=== PATIENT | male | born 1940 | race African-American/Black ===

== ENCOUNTER 2016-11-22 15:26 | Inpatient (IN) | payer MEDICARE, OTHER ==
[~2016-11-22] VITALS: Ht 177.8 cm; Wt 92.7 kg
[2016-11-22] VITALS (12 sets, daily range): BP systolic 133–224; BP diastolic 72–105
[2016-11-22] MEDS ORDERED: cloNIDine HCL 0.2 MG TABLET PO PRN (18:00)
[2016-11-22] MEDS ORDERED: cloNIDine HCL 0.1 MG TABLET PO ONE (18:00)
[2016-11-22] MEDS ORDERED: CHOL10003 PO (18:43)
[2016-11-22] MEDS ORDERED: ATORVASTATIN CA80 MG PO (18:43)
[2016-11-22 18:51] LABS: BASO % 0 % (0-3); EOS % 1 % (0-3); HEMATOCRIT 28.3 % (39.0-53.0); HEMOGLOBIN 9.2 g/dL (13.0-17.5); LYMPH # 1.1 x10^3/uL (1.0-4.8); LYMPH % 19 % (24-48); MEAN CORPUSCULAR HEMOGLOBIN 27 pg (25-35); MEAN CORPUSCULAR HGB CONC 32 g/dL (31-37); MEAN CORPUSCULAR VOLUME 82 fL (79-100); MONO % 11 % (0-9); NEUT % 69 % (31-73); PLATELET COUNT 95 x10^3/uL (140-400); RED BLOOD COUNT 3.43 x10^6/uL (4.30-5.70); RED CELL DISTRIBUTION WIDTH 16.9 % (11.5-14.5); WHITE BLOOD COUNT 5.8 x10^3/uL (4.0-11.0)
[2016-11-22 19:06] LABS: CALCIUM 8.6 mg/dL (8.5-10.1); CREATININE 9.3 mg/dL (0.7-1.3); GFR 6.7
[2016-11-22 19:11] LABS: ALBUMIN 2.6 g/dL (3.4-5.0); ALBUMIN/GLOBULIN RATIO 0.6 (1.0-1.7); TOTAL BILIRUBIN 0.3 mg/dL (0.2-1.0); TOTAL PROTEIN 6.9 g/dL (6.4-8.2)
[2016-11-22] MEDS ORDERED: AMLO10TA2 PO (19:29)
[2016-11-22] MEDS ORDERED: CETI10TA16 PO (19:29)
[2016-11-22] MEDS ORDERED: TERA2CAP3 PO (19:29)
[2016-11-22] MEDS ORDERED: CYAN10002 IM (19:29)
[2016-11-22] MEDS ORDERED: POLY17PO29 PO (19:29)
[2016-11-22] MEDS ORDERED: ATEN100T PO (19:29)
[2016-11-22] MEDS ORDERED: FINA5TAB4 PO (19:29)
[2016-11-22] MEDS ORDERED: LATA2.5D3 OP (19:29)
[2016-11-22] MEDS ORDERED: LEVO150T5 PO (19:29)
--- NOTE | 2016-11-22 23:36 | HP ---
ADMIT DATE: 11/22/2016 CHIEF COMPLAINT: "I need dialysis." HISTORY OF PRESENT ILLNESS: The patient is a pleasant elderly male who has had chronic renal insufficiency for some time. He has stage 4 kidney disease. He was told he needed dialysis, but he did not want it. He presents to the [place] [facility] earlier today. They noted that his creatinine had bumped up from 3.5 to 10. I accepted the patient as a transfer. We are going to start dialysis if Nephrology agrees. PAST MEDICAL HISTORY: Noncompliance, end-stage renal disease, hypertension, hyperlipidemia, hypothyroidism, BPH, anemia, and glaucoma. ALLERGIES: TAMSULOSIN. FAMILY HISTORY: Diabetes. SOCIAL HISTORY: He does not drink, smoke, or take drugs. He is retired. MEDICATIONS: Reviewed. REVIEW OF SYSTEMS: REVIEW OF SYSTEMS: GENERAL: No history of weight change, weakness, or fevers. SKIN: No bruising, hair changes, or rashes. EYES: No blurred, double, or loss of vision. NOSE AND THROAT: No history of nosebleeds, hoarseness, or sore throat. HEART: No history of palpitations, chest pain, or shortness of breath on exertion. LUNGS: Denies cough, hemoptysis, wheezing, or shortness of breath. GASTROINTESTINAL: Denies changes in appetite, nausea, vomiting, diarrhea, or constipation. GENITOURINARY: No history of frequency, urgency, hesitancy, or nocturia. NEUROLOGIC: Denies history of numbness, tingling, tremor, or weakness. PSYCHIATRIC: No history of panic, anxiety, or depression. ENDOCRINE: No history of heat or cold intolerance, polyuria, or polydipsia. EXTREMITIES: Denies muscle weakness, joint pain, pain on walking, or stiffness. PHYSICAL EXAMINATION: VITAL SIGNS: Temperature afebrile, pulse 68, respirations 18, blood pressure 224/105. . GENERAL: He is alert, cooperative. HEART: Normal S1, S2. LUNGS: Clear. ABDOMEN: Soft. EXTREMITIES: No edema. SKIN: No rashes. PSYCHIATRIC: He is stable. VASCULAR: Good capillary refill. ENDOCRINE: No thyromegaly. LYMPHATICS: No cervical nodes. HEMATOPOIETIC: No bruising. ASSESSMENT AND PLAN: Accelerated hypertension and end-stage renal disease. The patient probably needs dialysis. The patient has been admitted. We will consult Dr. Lai. I ordered some p.r.n. clonidine. Renal diet. Continue home medicines. PROGNOSIS: Guarded. THERESA SHAH DO DR: ALMA DELIA/zabrina JOB#: [id number] / [id number]
[2016-11-22 23:44] LABS: BILIRUBIN,URINE NEGATIVE (NEG); GLUCOSE,URINE NEGATIVE (NEG); NITRITE,URINE NEGATIVE (NEG); PROTEIN,URINE >=300 mg/dL (NEG-TRACE); UROBILINOGEN,URINE 0.2 mg/dL (0.2 mg/dL)
[2016-11-22 23:48] LABS: BACTERIA,URINE 0 /HPF (0-FEW); SQUAMOUS EPITHELIAL CELL,UR FEW /LPF; WBC,URINE OCC /HPF (0-4)
[2016-11-23] VITALS (27 sets, daily range): BP systolic 136–176; BP diastolic 64–87
[2016-11-23] MEDS ORDERED: ZOLPIDEM 5 MG TABLET. PO PRN (12:30)
--- NOTE | 2016-11-23 13:41 | PDOC2 ---
CONSULT Date of Consult Date of Consult DATE: 11/23/16 TIME: 13:40 Reason for Consult Reason for Consult: DANIEL/ CKD IV Referring Physician Referring Physician: Dr Suarez Identification/Chief Complaint Chief Complaint none from pt Problems: Source Source: Chart review, Patient History of Present Illness Reason for Visit: as dictated Current Medications Current Medications Current Medications Clonidine HCl (Catapres) 0.3 mg 1X ONCE PO Last administered on 11/22/16 18: 29; Start 11/22/16 at 18:00; Stop 11/22/16 at 18:01; Status DC Clonidine HCl (Catapres) 0.2 mg PRN Q2HR PRN PO HYPERTENSION, SEE COMMENTS; Start 11/22/16 at 18:00 Nicardipine HCl 50 mg/Sodium Chloride 270 ml @ 0 mls/hr CONT PRN IV SEE I/O RECORD Last administered on 11/22/16 21:49; Start 11/22/16 at 21:15 Zolpidem Tartrate (Ambien) 5 mg PRN QHS PRN PO INSOMNIA; Start 11/23/16 at 12: 30 Active Scripts Active Reported Miralax (Polyethylene Glycol 3350) 17 Gm Powd.pack 1 Packet PO DAILY Atenolol 100 Mg Tablet 1 Tab PO DAILY Terazosin Hcl 2 Mg Capsule 2 Cap PO BID Levothyroxine Sodium 150 Mcg Tablet 1 Tab PO DAILY Latanoprost 2.5 Ml Drops 1 Drop OP HS Finasteride 5 Mg Tablet 5 Mg PO HS Cetirizine Hcl 10 Mg Tablet 10 Mg PO Atorvastatin Calcium 80 Mg Tablet 80 Mg PO HS Vitamin D3 (Cholecalciferol (Vitamin D3)) 1,000 Unit Tablet 1,000 Unit PO Amlodipine Besylate 10 Mg Tablet 10 Mg PO QHS Allergies Allergies: Coded Allergies: tamsulosin (Verified Allergy, Intermediate, 11/23/16) ROS Review of System GEN: no Fevers no Chills EYES: no Visual Complaints ENT: no EN Drainage no Hearing deficiets CVS: no Orthopnea no CP RESP: occ SOB no [place] GI: no Nausea no Vomiting : no Dysuria rare Urgency HEME: no easy bruising no Palp Ly Nodes NEURO no Focal Weakness no Sz PSYCH: no Suicidal Ideation no Depression SKIN: no Rashes ENDO: n Polyuria or Polydipsia o Hot/Cold Intolerance MU SK: occ Arthraigia no Myalgia Physical Exam Physical Exam General Appearance: Awake Alert Oriented x 3 In no Distress Eyes: VIsion Unchanged Conjunctiva Normal EN: No EN Drainage Mucous Memb. moist Neck: no JVD no JVP Supple no Thyromegaly CVS: S1 S2 no Murmur No Gallop No Rub no Edema Resp: no Rales no Rhonchi no Acc. Muscle use GI: BAS +ve NO Bruit Non Tender Non Distended : no CVA tenderness; no Suprapubic Tenderness SKIN: no Rashes Breast Exam deferred Mu.Sk: Adequate ROM no Muscle Atrophy Heme: Unable to palpate Obvious LAD no Splenomegaly NEURO: Good Strength and Tone Cranial Nerves II - XII grossly intact Psych: not Depressed no Active hallucination Vital Signs Vital Signs Date Time Temp Pulse Resp B/P (MAP) Pulse Ox O2 Delivery O2 Flow Rate FiO2 11/23/16 11:50 97.5 59 18 164/83 (110) 100 Room Air 97.5 Assessment & Plan ARF - uNclear etio - suspect progression of CKD. Current FLuid and E-lyte status does not necessitate emergent need for Dialysis. Will re-evaluate for Dialysis in am CKD IV - unclear etio - await records from [facility]. Most likely due to HTNSive / NS Anemia: check Iron, Epogen after better BP Control. Transfuse as needed. HTN: on Cardene gtt. Current BP meds reviewed. See orders for changes. Proteinuria - quantitate with Ratio Low A/g ratio - chck PEPS Discussed Plan of Care and prognosis etc. at length with family and pt. He is willing to being HD but he is not [facility] currently - [facility] and [facility] re [facility]. ? Need for Bx Labs Labs Laboratory Tests Test 11/22/16 18:30 11/22/16 22:00 White Blood Count 5.8 x10^3/uL (4.0-11.0) Red Blood Count 3.43 x10^6/uL (4.30-5.70) Hemoglobin 9.2 g/dL (13.0-17.5) Hematocrit 28.3 % (39.0-53.0) Mean Corpuscular Volume 82 fL (79-100) Mean Corpuscular Hemoglobin 27 pg (25-35) Mean Corpuscular Hemoglobin Concent 32 g/dL (31-37) Red Cell Distribution Width 16.9 % (11.5-14.5) Platelet Count 95 x10^3/uL (140-400) Neutrophils (%) (Auto) 69 % (31-73) Lymphocytes (%) (Auto) 19 % (24-48) Monocytes (%) (Auto) 11 % (0-9) Eosinophils (%) (Auto) 1 % (0-3) Basophils (%) (Auto) 0 % (0-3) Neutrophils # (Auto) 4.0 x10^3uL (1.8-7.7) Lymphocytes # (Auto) 1.1 x10^3/uL (1.0-4.8) Monocytes # (Auto) 0.6 x10^3/uL (0.0-1.1) Eosinophils # (Auto) 0.0 x10^3/uL (0.0-0.7) Basophils # (Auto) 0.0 x10^3/uL (0.0-0.2) Sodium Level 141 mmol/L (136-145) Potassium Level 4.0 mmol/L (3.5-5.1) Chloride Level 105 mmol/L (98-107) Carbon Dioxide Level 25 mmol/L (21-32) Anion Gap 11 (6-14) Blood Urea Nitrogen 63 mg/dL (8-26) Creatinine 9.3 mg/dL (0.7-1.3) Estimated GFR (Cockcroft-Gault) 6.7 BUN/Creatinine Ratio 7 (6-20) Glucose Level 126 mg/dL (70-99) Calcium Level 8.6 mg/dL (8.5-10.1) Total Bilirubin 0.3 mg/dL (0.2-1.0) Aspartate Amino Transf (AST/SGOT) 17 U/L (15-37) Alanine Aminotransferase (ALT/SGPT) 14 U/L (16-63) Alkaline Phosphatase 67 U/L (46-116) Total Protein 6.9 g/dL (6.4-8.2) Albumin 2.6 g/dL (3.4-5.0) Albumin/Globulin Ratio 0.6 (1.0-1.7) Urine Color Yellow Urine Clarity Clear Urine pH 7.0 Urine Specific [place] 1.010 Urine Protein >=300 mg/dL (NEG-TRACE) Urine Glucose (UA) Negative mg/dL (NEG) Urine Ketones (Stick) Negative mg/dL (NEG) Urine Blood Small (NEG) Urine Nitrite Negative (NEG) Urine Bilirubin Negative (NEG) Urine Urobilinogen Dipstick 0.2 mg/dL (0.2 mg/dL) Urine Leukocyte Esterase Negative (NEG) Urine RBC 3-5 /HPF (0-2) Urine WBC Occ /HPF (0-4) Urine Squamous Epithelial Cells Few /LPF Urine Bacteria 0 /HPF (0-FEW) Urine Mucus Slight /LPF Laboratory Tests Test 11/22/16 18:30 11/22/16 22:00 White Blood Count 5.8 x10^3/uL (4.0-11.0) Red Blood Count 3.43 x10^6/uL (4.30-5.70) Hemoglobin 9.2 g/dL (13.0-17.5) Hematocrit 28.3 % (39.0-53.0) Mean Corpuscular Volume 82 fL (79-100) Mean Corpuscular Hemoglobin 27 pg (25-35) Mean Corpuscular Hemoglobin Concent 32 g/dL (31-37) Red Cell Distribution Width 16.9 % (11.5-14.5) Platelet Count 95 x10^3/uL (140-400) Neutrophils (%) (Auto) 69 % (31-73) Lymphocytes (%) (Auto) 19 % (24-48) Monocytes (%) (Auto) 11 % (0-9) Eosinophils (%) (Auto) 1 % (0-3) Basophils (%) (Auto) 0 % (0-3) Neutrophils # (Auto) 4.0 x10^3uL (1.8-7.7) Lymphocytes # (Auto) 1.1 x10^3/uL (1.0-4.8) Monocytes # (Auto) 0.6 x10^3/uL (0.0-1.1) Eosinophils # (Auto) 0.0 x10^3/uL (0.0-0.7) Basophils # (Auto) 0.0 x10^3/uL (0.0-0.2) Sodium Level 141 mmol/L (136-145) Potassium Level 4.0 mmol/L (3.5-5.1) Chloride Level 105 mmol/L (98-107) Carbon Dioxide Level 25 mmol/L (21-32) Anion Gap 11 (6-14) Blood Urea Nitrogen 63 mg/dL (8-26) Creatinine 9.3 mg/dL (0.7-1.3) Estimated GFR (Cockcroft-Gault) 6.7 BUN/Creatinine Ratio 7 (6-20) Glucose Level 126 mg/dL (70-99) Calcium Level 8.6 mg/dL (8.5-10.1) Total Bilirubin 0.3 mg/dL (0.2-1.0) Aspartate Amino Transf (AST/SGOT) 17 U/L (15-37) Alanine Aminotransferase (ALT/SGPT) 14 U/L (16-63) Alkaline Phosphatase 67 U/L (46-116) Total Protein 6.9 g/dL (6.4-8.2) Albumin 2.6 g/dL (3.4-5.0) Albumin/Globulin Ratio 0.6 (1.0-1.7) Urine Color Yellow Urine Clarity Clear Urine pH 7.0 Urine Specific [place] 1.010 Urine Protein >=300 mg/dL (NEG-TRACE) Urine Glucose (UA) Negative mg/dL (NEG) Urine Ketones (Stick) Negative mg/dL (NEG) Urine Blood Small (NEG) Urine Nitrite Negative (NEG) Urine Bilirubin Negative (NEG) Urine Urobilinogen Dipstick 0.2 mg/dL (0.2 mg/dL) Urine Leukocyte Esterase Negative (NEG) Urine RBC 3-5 /HPF (0-2) Urine WBC Occ /HPF (0-4) Urine Squamous Epithelial Cells Few /LPF Urine Bacteria 0 /HPF (0-FEW) Urine Mucus Slight /LPF YULISA FONTANA MD Nov 23, 2016 13:41
[2016-11-23] MEDS ORDERED: MAGNESIUM SULFATE 2GM 50 ML IV PRN (13:45)
--- NOTE | 2016-11-23 13:57 | PDOC ---
PROGRESS NOTES Chief Complaint Chief Complaint Accelerated hypertension ESRD PMH: Noncompliance ESRD HTN HLD Hypothyroidism BPH Anemia Glaucoma History of Present Illness History of Present Illness Patient reclining in bedside chair, is at bedside. Pt reports he is having difficulty sleeping, will prescribe ambien to help. Discussed diagnosis and current treatment plan with pt and . Nephrology consulted Renal sonogram pending - Spoke with RN, scheduled for today at 1800 Labs: Albumin 2.6 BUN 63 Cr 9.3 Vitals Vitals Vital Signs Date Time Temp Pulse Resp B/P (MAP) Pulse Ox O2 Delivery O2 Flow Rate FiO2 11/23/16 11:50 97.5 59 18 164/83 (110) 100 Room Air 97.5 Physical Exam General: Alert, Oriented X3, Cooperative, No acute distress Heart: Regular rate, Normal S1, Normal S2 Lungs: Clear, Other (no wheezes, no crackles) Abdomen: Soft, No tenderness Extremities: No cyanosis, No edema Skin: No rashes, No breakdown Labs LABS Laboratory Tests Test 11/22/16 18:30 11/22/16 22:00 White Blood Count 5.8 x10^3/uL (4.0-11.0) Red Blood Count 3.43 x10^6/uL (4.30-5.70) Hemoglobin 9.2 g/dL (13.0-17.5) Hematocrit 28.3 % (39.0-53.0) Mean Corpuscular Volume 82 fL (79-100) Mean Corpuscular Hemoglobin 27 pg (25-35) Mean Corpuscular Hemoglobin Concent 32 g/dL (31-37) Red Cell Distribution Width 16.9 % (11.5-14.5) Platelet Count 95 x10^3/uL (140-400) Neutrophils (%) (Auto) 69 % (31-73) Lymphocytes (%) (Auto) 19 % (24-48) Monocytes (%) (Auto) 11 % (0-9) Eosinophils (%) (Auto) 1 % (0-3) Basophils (%) (Auto) 0 % (0-3) Neutrophils # (Auto) 4.0 x10^3uL (1.8-7.7) Lymphocytes # (Auto) 1.1 x10^3/uL (1.0-4.8) Monocytes # (Auto) 0.6 x10^3/uL (0.0-1.1) Eosinophils # (Auto) 0.0 x10^3/uL (0.0-0.7) Basophils # (Auto) 0.0 x10^3/uL (0.0-0.2) Sodium Level 141 mmol/L (136-145) Potassium Level 4.0 mmol/L (3.5-5.1) Chloride Level 105 mmol/L (98-107) Carbon Dioxide Level 25 mmol/L (21-32) Anion Gap 11 (6-14) Blood Urea Nitrogen 63 mg/dL (8-26) Creatinine 9.3 mg/dL (0.7-1.3) Estimated GFR (Cockcroft-Gault) 6.7 BUN/Creatinine Ratio 7 (6-20) Glucose Level 126 mg/dL (70-99) Calcium Level 8.6 mg/dL (8.5-10.1) Total Bilirubin 0.3 mg/dL (0.2-1.0) Aspartate Amino Transf (AST/SGOT) 17 U/L (15-37) Alanine Aminotransferase (ALT/SGPT) 14 U/L (16-63) Alkaline Phosphatase 67 U/L (46-116) Total Protein 6.9 g/dL (6.4-8.2) Albumin 2.6 g/dL (3.4-5.0) Albumin/Globulin Ratio 0.6 (1.0-1.7) Urine Color Yellow Urine Clarity Clear Urine pH 7.0 Urine Specific [place] 1.010 Urine Protein >=300 mg/dL (NEG-TRACE) Urine Glucose (UA) Negative mg/dL (NEG) Urine Ketones (Stick) Negative mg/dL (NEG) Urine Blood Small (NEG) Urine Nitrite Negative (NEG) Urine Bilirubin Negative (NEG) Urine Urobilinogen Dipstick 0.2 mg/dL (0.2 mg/dL) Urine Leukocyte Esterase Negative (NEG) Urine RBC 3-5 /HPF (0-2) Urine WBC Occ /HPF (0-4) Urine Squamous Epithelial Cells Few /LPF Urine Bacteria 0 /HPF (0-FEW) Urine Mucus Slight /LPF Review of Systems Review of Systems Difficulty sleeping tired weakness and pain in legs Assessment and Plan Assessmemt and Plan Accelerated hypertension ESRD Moderate malnutrition - albumin 2.6 1. Start ambien 5 mg prn 2. Renal sonogram pending 3. Nephrology consulted, awaiting further rec; appreciate input 4. Continue home meds 5. Renal diet 6. Recheck labs in am 7. PT/OT Problems: Comment Review of Relevant I have reviewed the following items theresa (where applicable) has been applied. Labs Laboratory Tests Test 11/22/16 18:30 11/22/16 22:00 White Blood Count 5.8 x10^3/uL (4.0-11.0) Red Blood Count 3.43 x10^6/uL (4.30-5.70) Hemoglobin 9.2 g/dL (13.0-17.5) Hematocrit 28.3 % (39.0-53.0) Mean Corpuscular Volume 82 fL (79-100) Mean Corpuscular Hemoglobin 27 pg (25-35) Mean Corpuscular Hemoglobin Concent 32 g/dL (31-37) Red Cell Distribution Width 16.9 % (11.5-14.5) Platelet Count 95 x10^3/uL (140-400) Neutrophils (%) (Auto) 69 % (31-73) Lymphocytes (%) (Auto) 19 % (24-48) Monocytes (%) (Auto) 11 % (0-9) Eosinophils (%) (Auto) 1 % (0-3) Basophils (%) (Auto) 0 % (0-3) Neutrophils # (Auto) 4.0 x10^3uL (1.8-7.7) Lymphocytes # (Auto) 1.1 x10^3/uL (1.0-4.8) Monocytes # (Auto) 0.6 x10^3/uL (0.0-1.1) Eosinophils # (Auto) 0.0 x10^3/uL (0.0-0.7) Basophils # (Auto) 0.0 x10^3/uL (0.0-0.2) Sodium Level 141 mmol/L (136-145) Potassium Level 4.0 mmol/L (3.5-5.1) Chloride Level 105 mmol/L (98-107) Carbon Dioxide Level 25 mmol/L (21-32) Anion Gap 11 (6-14) Blood Urea Nitrogen 63 mg/dL (8-26) Creatinine 9.3 mg/dL (0.7-1.3) Estimated GFR (Cockcroft-Gault) 6.7 BUN/Creatinine Ratio 7 (6-20) Glucose Level 126 mg/dL (70-99) Calcium Level 8.6 mg/dL (8.5-10.1) Total Bilirubin 0.3 mg/dL (0.2-1.0) Aspartate Amino Transf (AST/SGOT) 17 U/L (15-37) Alanine Aminotransferase (ALT/SGPT) 14 U/L (16-63) Alkaline Phosphatase 67 U/L (46-116) Total Protein 6.9 g/dL (6.4-8.2) Albumin 2.6 g/dL (3.4-5.0) Albumin/Globulin Ratio 0.6 (1.0-1.7) Urine Color Yellow Urine Clarity Clear Urine pH 7.0 Urine Specific [place] 1.010 Urine Protein >=300 mg/dL (NEG-TRACE) Urine Glucose (UA) Negative mg/dL (NEG) Urine Ketones (Stick) Negative mg/dL (NEG) Urine Blood Small (NEG) Urine Nitrite Negative (NEG) Urine Bilirubin Negative (NEG) Urine Urobilinogen Dipstick 0.2 mg/dL (0.2 mg/dL) Urine Leukocyte Esterase Negative (NEG) Urine RBC 3-5 /HPF (0-2) Urine WBC Occ /HPF (0-4) Urine Squamous Epithelial Cells Few /LPF Urine Bacteria 0 /HPF (0-FEW) Urine Mucus Slight /LPF Laboratory Tests Test 11/22/16 18:30 11/22/16 22:00 White Blood Count 5.8 x10^3/uL (4.0-11.0) Red Blood Count 3.43 x10^6/uL (4.30-5.70) Hemoglobin 9.2 g/dL (13.0-17.5) Hematocrit 28.3 % (39.0-53.0) Mean Corpuscular Volume 82 fL (79-100) Mean Corpuscular Hemoglobin 27 pg (25-35) Mean Corpuscular Hemoglobin Concent 32 g/dL (31-37) Red Cell Distribution Width 16.9 % (11.5-14.5) Platelet Count 95 x10^3/uL (140-400) Neutrophils (%) (Auto) 69 % (31-73) Lymphocytes (%) (Auto) 19 % (24-48) Monocytes (%) (Auto) 11 % (0-9) Eosinophils (%) (Auto) 1 % (0-3) Basophils (%) (Auto) 0 % (0-3) Neutrophils # (Auto) 4.0 x10^3uL (1.8-7.7) Lymphocytes # (Auto) 1.1 x10^3/uL (1.0-4.8) Monocytes # (Auto) 0.6 x10^3/uL (0.0-1.1) Eosinophils # (Auto) 0.0 x10^3/uL (0.0-0.7) Basophils # (Auto) 0.0 x10^3/uL (0.0-0.2) Sodium Level 141 mmol/L (136-145) Potassium Level 4.0 mmol/L (3.5-5.1) Chloride Level 105 mmol/L (98-107) Carbon Dioxide Level 25 mmol/L (21-32) Anion Gap 11 (6-14) Blood Urea Nitrogen 63 mg/dL (8-26) Creatinine 9.3 mg/dL (0.7-1.3) Estimated GFR (Cockcroft-Gault) 6.7 BUN/Creatinine Ratio 7 (6-20) Glucose Level 126 mg/dL (70-99) Calcium Level 8.6 mg/dL (8.5-10.1) Total Bilirubin 0.3 mg/dL (0.2-1.0) Aspartate Amino Transf (AST/SGOT) 17 U/L (15-37) Alanine Aminotransferase (ALT/SGPT) 14 U/L (16-63) Alkaline Phosphatase 67 U/L (46-116) Total Protein 6.9 g/dL (6.4-8.2) Albumin 2.6 g/dL (3.4-5.0) Albumin/Globulin Ratio 0.6 (1.0-1.7) Urine Color Yellow Urine Clarity Clear Urine pH 7.0 Urine Specific [place] 1.010 Urine Protein >=300 mg/dL (NEG-TRACE) Urine Glucose (UA) Negative mg/dL (NEG) Urine Ketones (Stick) Negative mg/dL (NEG) Urine Blood Small (NEG) Urine Nitrite Negative (NEG) Urine Bilirubin Negative (NEG) Urine Urobilinogen Dipstick 0.2 mg/dL (0.2 mg/dL) Urine Leukocyte Esterase Negative (NEG) Urine RBC 3-5 /HPF (0-2) Urine WBC Occ /HPF (0-4) Urine Squamous Epithelial Cells Few /LPF Urine Bacteria 0 /HPF (0-FEW) Urine Mucus Slight /LPF Medications Current Medications Clonidine HCl (Catapres) 0.3 mg 1X ONCE PO Last administered on 11/22/16 18: 29; Start 11/22/16 at 18:00; Stop 11/22/16 at 18:01; Status DC Clonidine HCl (Catapres) 0.2 mg PRN Q2HR PRN PO HYPERTENSION, SEE COMMENTS; Start 11/22/16 at 18:00 Nicardipine HCl 50 mg/Sodium Chloride 270 ml @ 0 mls/hr CONT PRN IV SEE I/O RECORD Last administered on 11/22/16 21:49; Start 11/22/16 at 21:15 Zolpidem Tartrate (Ambien) 5 mg PRN QHS PRN PO INSOMNIA; Start 11/23/16 at 12: 30 Magnesium Sulfate/ Dextrose 50 ml @ 25 mls/hr PRN DAILY PRN IV for Mag < 1.7 on am labs; Start 11/23/16 at 13:45 Active Scripts Active Reported Miralax (Polyethylene Glycol 3350) 17 Gm Powd.pack 1 Packet PO DAILY Atenolol 100 Mg Tablet 1 Tab PO DAILY Terazosin Hcl 2 Mg Capsule 2 Cap PO BID Levothyroxine Sodium 150 Mcg Tablet 1 Tab PO DAILY Latanoprost 2.5 Ml Drops 1 Drop OP HS Finasteride 5 Mg Tablet 5 Mg PO HS Cetirizine Hcl 10 Mg Tablet 10 Mg PO Atorvastatin Calcium 80 Mg Tablet 80 Mg PO HS Vitamin D3 (Cholecalciferol (Vitamin D3)) 1,000 Unit Tablet 1,000 Unit PO Amlodipine Besylate 10 Mg Tablet 10 Mg PO QHS Vitals/I & O Vital Sign - Last 24 Hours 11/22/16 11/22/16 11/22/16 11/22/16 17:18 17:45 18:29 18:30 Pulse 65 60 65 B/P (MAP) 201/95 (130) 224/105 (144) 224/105 O2 Delivery Room Air 11/22/16 11/22/16 11/22/16 11/22/16 19:00 19:35 20:00 22:10 Temp 97.6 97.6 Pulse 65 60 62 Resp 18 B/P (MAP) 224/105 (144) 199/102 (134) 154/84 (107) Pulse Ox 100 O2 Delivery Room Air Room Air Room Air 11/22/16 11/22/16 11/22/16 11/22/16 22:25 22:40 22:55 23:10 Pulse 60 60 59 62 B/P (MAP) 148/76 (100) 133/72 (92) 149/77 (101) 146/72 (96) O2 Delivery Room Air Room Air Room Air Room Air 11/22/16 11/22/16 11/22/16 11/23/16 23:25 23:30 23:53 00:23 Temp 97.5 97.5 Pulse 61 65 60 60 Resp 16 B/P (MAP) 148/78 (101) 149/77 (101) 156/80 (105) 156/80 (105) Pulse Ox 98 O2 Delivery Room Air Room Air Room Air Room Air 11/23/16 11/23/16 11/23/16 11/23/16 00:53 01:25 01:55 02:25 Pulse 60 60 59 59 B/P (MAP) 163/83 (109) 166/83 (110) 155/77 (103) 153/79 (103) 11/23/16 11/23/16 11/23/16 11/23/16 02:55 03:25 04:25 04:55 Pulse 59 59 61 60 B/P (MAP) 160/82 (108) 154/80 (104) 141/77 (98) 161/81 (107) 11/23/16 11/23/16 11/23/16 11/23/16 05:55 06:53 07:41 11:50 Temp 97.5 97.5 Pulse 59 60 59 Resp 18 B/P (MAP) 153/78 (103) 154/83 (106) 164/83 (110) Pulse Ox 100 O2 Delivery Room Air Room Air Intake and Output 11/23/16 11/23/16 11/24/16 15:00 23:00 07:00 Output Total 850 ml Balance -850 ml THERESA SHAH III DO Nov 23, 2016 13:57
[2016-11-23 14:38] LABS: % SAT IRON 17 % (15-34); IRON,SERUM 34 ug/dL (65-175)
[2016-11-23] MEDS: POLYETHYLENE GLYCOL 3350 17 GM PACKET. PO SCH (17:30)
[2016-11-23] MEDS: CETIRIZINE HCL 10 MG TABLET. PO SCH (17:55)
[2016-11-23] MEDS: LEVOTHYROXINE 150 MCG TABLET PO SCH (17:55)
[2016-11-23] MEDS: CHOLECALCIFEROL (VITAMIN D3) 1,000 UNIT TABLET PO SCH (17:56)
[2016-11-23] MEDS: ATENOLOL 50 MG TABLET. PO SCH (17:56)
[2016-11-23] MEDS: amLODIPine BESYLATE 10 MG TABLET PO SCH (20:54)
[2016-11-23] MEDS: LATANOPROST 0.005% OPHTH SOLUTION 2.5ML BOTTLE. OU SCH (20:54)
[2016-11-23] MEDS: FINASTERIDE 5 MG TABLET. PO SCH (20:54)
[2016-11-23] MEDS: ZOLPIDEM 5 MG TABLET. PO PRN (20:55)
[2016-11-23] MEDS: TERAZOSIN 1 MG CAPSULE. PO SCH (20:55)
[2016-11-23] MEDS: ATORVASTATIN CALCIUM 40 MG TABLET. PO SCH (21:06)
--- NOTE | 2016-11-23 21:48 | CONS ---
DATE OF CONSULTATION: HISTORY OF PRESENT ILLNESS: The patient is a 76-year-old -[place] gentleman followed at the [facility]. We were asked to see him for [id number] renal insufficiency. He is not a very good historian with regards to his records and his health issues. He, however, has seen a assembler piano, I believe, it is Dr. Sheffield at the [facility]. He is known to have chronic renal insufficiency. Based on Dr. Suarez's notes and his communication with the physicians at the [facility], he is noted to have a creatinine of 3.5 about 2 or 3 months ago, and it is now up to 10 The patient claims he was told that he may need dialysis in the near future in the last few months. He does not feel bad. His appetite is good. He denies NSAID use. PAST MEDICAL HISTORY: 1. Known history of noncompliance. 2. CKD, stage 4. 3. Hypertension. 4. Hyperlipidemia. 5. Hypothyroidism. 6. BPH. 7. Anemia. 8. Glaucoma. ALLERGIES: TAMSULOSIN. FAMILY HISTORY: Diabetes, no kidney problems in the family that he admits to. SOCIAL HISTORY: Does not drink, smoke or take drugs. He is retired. For rest of detail, see electronic records. YULISA FONTANA MD DR: TEO/zabrina JOB#: [id number] / [id number]
[2016-11-24 03:20] VITALS: BP 131/64
[2016-11-24 05:30] LABS: BASO % 1 % (0-3); EOS % 2 % (0-3); HEMATOCRIT 27.8 % (39.0-53.0); HEMOGLOBIN 9.2 g/dL (13.0-17.5); LYMPH # 1.4 x10^3/uL (1.0-4.8); LYMPH % 23 % (24-48); MEAN CORPUSCULAR HEMOGLOBIN 27 pg (25-35); MEAN CORPUSCULAR HGB CONC 33 g/dL (31-37); MEAN CORPUSCULAR VOLUME 81 fL (79-100); MONO % 11 % (0-9); NEUT % 63 % (31-73); PLATELET COUNT 96 x10^3/uL (140-400); RED BLOOD COUNT 3.45 x10^6/uL (4.30-5.70); WHITE BLOOD COUNT 5.9 x10^3/uL (4.0-11.0)
[2016-11-24 05:55] LABS: ALBUMIN 2.2 g/dL (3.4-5.0); CALCIUM 8.2 mg/dL (8.5-10.1); CREATININE 8.9 mg/dL (0.7-1.3); MAGNESIUM 2.4 mg/dL (1.8-2.4); PHOSPHORUS 5.9 mg/dL (2.6-4.7); POTASSIUM 4.2 mmol/L (3.5-5.1)
[2016-11-24] MEDS: LEVOTHYROXINE 150 MCG TABLET PO SCH (06:44)
[2016-11-24 07:33] VITALS: BP 150/78
--- NOTE | 2016-11-24 07:42 | RAD ---
Renal ultrasound with deep Doppler, 11/23/2016: History: Renal failure The right kidney measures 10 cm in length while the left kidney measures 9 cm. Both kidneys are markedly hyperechoic. There is a 1.4 cm cyst in the upper pole of the right kidney. A 3.2 cm cyst is noted in the left kidney. The kidneys show no evidence of obstruction. Limited views of the partially filled urinary bladder are unremarkable. Deep Doppler interrogation of the main renal arteries was attempted utilizing grayscale, color-flow and spectral Doppler analysis. The origins of the renal arteries from the aorta are not adequately visualized due to overlying bowel. The velocities obtained from the more distal aspects of the renal arteries at the renal hilar levels demonstrate no significant velocity elevation or parvus/tardus phenomena. IMPRESSION: 1. Markedly echogenic kidneys compatible with medical renal disease. 2. No evidence of renal obstruction. 3. Single bilateral renal cysts. 4. Incomplete evaluation of the renal arteries due to overlying bowel.
[2016-11-24] MEDS: POLYETHYLENE GLYCOL 3350 17 GM PACKET. PO SCH (09:00)
[2016-11-24] MEDS: CHOLECALCIFEROL (VITAMIN D3) 1,000 UNIT TABLET PO SCH (09:26)
[2016-11-24] MEDS: CETIRIZINE HCL 10 MG TABLET. PO SCH (09:26)
[2016-11-24] MEDS: ATENOLOL 50 MG TABLET. PO SCH (09:27)
[2016-11-24] MEDS: TERAZOSIN 1 MG CAPSULE. PO SCH ×2 (09:27→20:45)
[2016-11-24 11:11] VITALS: BP 115/69
--- NOTE | 2016-11-24 11:25 | PDOC ---
SUBJECTIVE ROS DANIEL/ CKD IV Doingand feeling well, ate well yest after a long time CVS: no Orthopnea, no CP RESP: no SOB, no [place] GI: no Nausea, no Vomiting : no Dysuria, no Urgency OBJECTIVE Vital Signs Vital Signs Date Time Temp Pulse Resp B/P (MAP) Pulse Ox O2 Delivery O2 Flow Rate FiO2 11/24/16 11:11 97.3 61 20 115/69 (84) 97 Room Air 97.3 PHYSICAL EXAM Physical Exam General Appearance: Awake Alert Oriented x 3 In no Distress Eyes: VIsion Unchanged Conjunctiva Normal EN: No EN Drainage Mucous Memb. moist Neck: no JVD no JVP Supple no Thyromegaly CVS: S1 S2 no Murmur No Gallop No Rub no Edema Resp: no Rales no Rhonchi no Acc. Muscle use GI: BS +ve NO Bruit Non Tender Non Distended : no CVA tenderness; no Suprapubic Tenderness SKIN: no Rashes Breast Exam deferred Mu.Sk: Adequate ROM no Muscle Atrophy Heme: Unable to palpate Obvious LAD no Splenomegaly NEURO: Good Strength and Tone Cranial Nerves II - XII grossly intact Psych: not Depressed no Active hallucination Assessment & Plan ARF - uNclear etio; po INTAKE HAS BEEN POOR in the recent past; will try IVF - suspect progression of CKD. Current FLuid and E-lyte status does not necessitate emergent need for Dialysis. Will re-evaluate for Dialysis in am Renal Sclerosis as noted on US - ? Dehdyration vs parenchymal dz. Trial of IVF CKD IV - unclear etio - await records from [facility]. Most likely due to HTNSive / NS Anemia: IV Iron fo rnow, Epogen after better BP Control. Transfuse as needed. HTN: on Cardene gtt. Current BP meds reviewed. See orders for changes. Proteinuria - (SUSPECT NEPHROTIC SYNDROME)quantitate with Ratio; await serologies as ordered Low A/g ratio - chck PEPS ^ed Phos - start binders Discussed Plan of Care and prognosis etc. at length with family and pt. He is willing to begin HD but he is not [facility] currently - [facility] and [facility] re same. ? Need for Bx COMMENT/RELEVANT DATA Meds Current Medications Medications (Trade) Dose Ordered Sig/Juan Antonio Start Time Stop Time Status Last Admin Dose Admin Amlodipine Besylate (Norvasc) 10 mg QHS 11/23/16 21:00 9/17/17 20:54 10 MG Atenolol (Tenormin) 100 mg DAILY 11/23/16 17:30 11/24/16 09:27 100 MG Atorvastatin Calcium (Lipitor) 80 mg QHS 11/23/16 21:00 11/23/16 21:06 80 MG Cetirizine HCl (ZyrTEC) 10 mg DAILY 11/23/16 17:30 11/24/16 09:26 10 MG Clonidine HCl (Catapres) 0.2 mg PRN Q2HR PRN 11/22/16 18:00 Cyanocobalamin (Vitamin B-12) 1,000 mcg QMONTH 12/23/16 09:00 Finasteride (Proscar) 5 mg HS 11/23/16 21:00 11/23/16 20:54 5 MG Latanoprost (Xalatan) 1 drop HS 11/23/16 21:00 11/23/16 20:54 1 DROP Levothyroxine Sodium (Synthroid) 150 mcg DAILY07 11/23/16 17:30 11/24/16 06:44 150 MCG Magnesium Sulfate/ Dextrose 50 ml @ 25 mls/hr PRN DAILY PRN 11/23/16 13:45 Nicardipine HCl 50 mg/Sodium Chloride 270 ml @ 0 mls/hr CONT PRN 11/22/16 21:15 11/22/16 21:49 25 MLS/HR Polyethylene Glycol (miraLAX PACKET) 17 gm DAILY 11/23/16 17:30 Terazosin HCl (Hytrin) 2 mg BID 11/23/16 21:00 11/24/16 09:27 2 MG Vitamin D (Vitamin D3) 1,000 unit DAILY 11/23/16 17:30 11/24/16 09:26 1,000 UNIT Zolpidem Tartrate (Ambien) 5 mg PRN QHS PRN 11/23/16 14:00 11/23/16 20:55 5 MG Lab Laboratory Tests Test 11/23/16 14:05 11/24/16 05:20 Iron Level 34 ug/dL (65-175) Total Iron Binding Capacity 199 ug/dL (250-450) Iron Saturation 17 % (15-34) Ferritin 479 ng/mL (26-388) White Blood Count 5.9 x10^3/uL (4.0-11.0) Red Blood Count 3.45 x10^6/uL (4.30-5.70) Hemoglobin 9.2 g/dL (13.0-17.5) Hematocrit 27.8 % (39.0-53.0) Mean Corpuscular Volume 81 fL (79-100) Mean Corpuscular Hemoglobin 27 pg (25-35) Mean Corpuscular Hemoglobin Concent 33 g/dL (31-37) Red Cell Distribution Width 17.0 % (11.5-14.5) Platelet Count 96 x10^3/uL (140-400) Neutrophils (%) (Auto) 63 % (31-73) Lymphocytes (%) (Auto) 23 % (24-48) Monocytes (%) (Auto) 11 % (0-9) Eosinophils (%) (Auto) 2 % (0-3) Basophils (%) (Auto) 1 % (0-3) Neutrophils # (Auto) 3.7 x10^3uL (1.8-7.7) Lymphocytes # (Auto) 1.4 x10^3/uL (1.0-4.8) Monocytes # (Auto) 0.7 x10^3/uL (0.0-1.1) Eosinophils # (Auto) 0.1 x10^3/uL (0.0-0.7) Basophils # (Auto) 0.0 x10^3/uL (0.0-0.2) Sodium Level 139 mmol/L (136-145) Potassium Level 4.2 mmol/L (3.5-5.1) Chloride Level 104 mmol/L (98-107) Carbon Dioxide Level 25 mmol/L (21-32) Anion Gap 10 (6-14) Blood Urea Nitrogen 65 mg/dL (8-26) Creatinine 8.9 mg/dL (0.7-1.3) Estimated GFR (Cockcroft-Gault) 7.0 Glucose Level 81 mg/dL (70-99) Calcium Level 8.2 mg/dL (8.5-10.1) Phosphorus Level 5.9 mg/dL (2.6-4.7) Magnesium Level 2.4 mg/dL (1.8-2.4) Albumin 2.2 g/dL (3.4-5.0) Other History: Renal failure The right kidney measures 10 cm in length while the left kidney measures 9 cm. Both kidneys are markedly hyperechoic. There is a 1.4 cm cyst in the upper pole of the right kidney. A 3.2 cm cyst is noted in the left kidney. The kidneys show no evidence of obstruction. Limited views of the partially filled urinary bladder are unremarkable. Deep Doppler interrogation of the main renal arteries was attempted utilizing grayscale, color-flow and spectral Doppler analysis. The origins of the renal arteries from the aorta are not adequately visualized due to overlying bowel. The velocities obtained from the more distal aspects of the renal arteries at the renal hilar levels demonstrate no significant velocity elevation or parvus/tardus phenomena. IMPRESSION: 1. Markedly echogenic kidneys compatible with medical renal disease. 2. No evidence of renal obstruction. 3. Single bilateral renal cysts. 4. Incomplete evaluation of the renal arteries due to overlying bowel. YULISA FONTANA MD Nov 24, 2016 11:25
--- NOTE | 2016-11-24 11:44 | PDOC ---
PROGRESS NOTES Chief Complaint Chief Complaint Accelerated hypertension ESRD PMH: Noncompliance ESRD HTN HLD Hypothyroidism BPH Anemia Glaucoma History of Present Illness History of Present Illness Pt seen at bedside. He is resting comfortably and in no acute distress. No complaints at this time. Nephrology will evaluate for possible dialysis today. Nephrology is following Renal US: 1. Markedly echogenic kidneys compatible with medical renal disease. 2. No evidence of renal obstruction. 3. Single bilateral renal cysts. 4. Incomplete evaluation of the renal arteries due to overlying bowel. Vitals Vitals Vital Signs Date Time Temp Pulse Resp B/P (MAP) Pulse Ox O2 Delivery O2 Flow Rate FiO2 11/24/16 11:11 97.3 61 20 115/69 (84) 97 Room Air 97.3 Physical Exam General: Alert, Oriented X3, Cooperative, No acute distress Heart: Regular rate, Normal S1, Normal S2 Lungs: Clear, Other (no wheezes, no crackles) Abdomen: Soft, No tenderness Extremities: No cyanosis, No edema Skin: No rashes, No breakdown Labs LABS Laboratory Tests Test 11/23/16 14:05 11/24/16 05:20 Iron Level 34 ug/dL (65-175) Total Iron Binding Capacity 199 ug/dL (250-450) Iron Saturation 17 % (15-34) Ferritin 479 ng/mL (26-388) White Blood Count 5.9 x10^3/uL (4.0-11.0) Red Blood Count 3.45 x10^6/uL (4.30-5.70) Hemoglobin 9.2 g/dL (13.0-17.5) Hematocrit 27.8 % (39.0-53.0) Mean Corpuscular Volume 81 fL (79-100) Mean Corpuscular Hemoglobin 27 pg (25-35) Mean Corpuscular Hemoglobin Concent 33 g/dL (31-37) Red Cell Distribution Width 17.0 % (11.5-14.5) Platelet Count 96 x10^3/uL (140-400) Neutrophils (%) (Auto) 63 % (31-73) Lymphocytes (%) (Auto) 23 % (24-48) Monocytes (%) (Auto) 11 % (0-9) Eosinophils (%) (Auto) 2 % (0-3) Basophils (%) (Auto) 1 % (0-3) Neutrophils # (Auto) 3.7 x10^3uL (1.8-7.7) Lymphocytes # (Auto) 1.4 x10^3/uL (1.0-4.8) Monocytes # (Auto) 0.7 x10^3/uL (0.0-1.1) Eosinophils # (Auto) 0.1 x10^3/uL (0.0-0.7) Basophils # (Auto) 0.0 x10^3/uL (0.0-0.2) Sodium Level 139 mmol/L (136-145) Potassium Level 4.2 mmol/L (3.5-5.1) Chloride Level 104 mmol/L (98-107) Carbon Dioxide Level 25 mmol/L (21-32) Anion Gap 10 (6-14) Blood Urea Nitrogen 65 mg/dL (8-26) Creatinine 8.9 mg/dL (0.7-1.3) Estimated GFR (Cockcroft-Gault) 7.0 Glucose Level 81 mg/dL (70-99) Calcium Level 8.2 mg/dL (8.5-10.1) Phosphorus Level 5.9 mg/dL (2.6-4.7) Magnesium Level 2.4 mg/dL (1.8-2.4) Albumin 2.2 g/dL (3.4-5.0) Review of Systems Review of Systems General: + Hunger, +fatigue Cardiac: denies CP Resp: denies SOB or wheezing Extremities: denies LE swelling or pain Assessment and Plan Assessmemt and Plan Assessment: Accelerated hypertension ESRD PMH: Noncompliance ESRD HTN HLD Hypothyroidism BPH Anemia Glaucoma Plan: -Probable dialysis if Nephrology agrees (Creatinine of 8.9, phos of 5.9) -Continue Nicardipine drip (Hypertensive) -Continue Ambien prn -CBC and BMP - PT/OT Problems: Comment Review of Relevant I have reviewed the following items theresa (where applicable) has been applied. Labs Laboratory Tests Test 11/22/16 18:30 11/22/16 22:00 11/23/16 14:05 11/24/16 05:20 White Blood Count 5.8 x10^3/uL (4.0-11.0) 5.9 x10^3/uL (4.0-11.0) Red Blood Count 3.43 x10^6/uL (4.30-5.70) 3.45 x10^6/uL (4.30-5.70) Hemoglobin 9.2 g/dL (13.0-17.5) 9.2 g/dL (13.0-17.5) Hematocrit 28.3 % (39.0-53.0) 27.8 % (39.0-53.0) Mean Corpuscular Volume 82 fL (79-100) 81 fL (79-100) Mean Corpuscular Hemoglobin 27 pg (25-35) 27 pg (25-35) Mean Corpuscular Hemoglobin Concent 32 g/dL (31-37) 33 g/dL (31-37) Red Cell Distribution Width 16.9 % (11.5-14.5) 17.0 % (11.5-14.5) Platelet Count 95 x10^3/uL (140-400) 96 x10^3/uL (140-400) Neutrophils (%) (Auto) 69 % (31-73) 63 % (31-73) Lymphocytes (%) (Auto) 19 % (24-48) 23 % (24-48) Monocytes (%) (Auto) 11 % (0-9) 11 % (0-9) Eosinophils (%) (Auto) 1 % (0-3) 2 % (0-3) Basophils (%) (Auto) 0 % (0-3) 1 % (0-3) Neutrophils # (Auto) 4.0 x10^3uL (1.8-7.7) 3.7 x10^3uL (1.8-7.7) Lymphocytes # (Auto) 1.1 x10^3/uL (1.0-4.8) 1.4 x10^3/uL (1.0-4.8) Monocytes # (Auto) 0.6 x10^3/uL (0.0-1.1) 0.7 x10^3/uL (0.0-1.1) Eosinophils # (Auto) 0.0 x10^3/uL (0.0-0.7) 0.1 x10^3/uL (0.0-0.7) Basophils # (Auto) 0.0 x10^3/uL (0.0-0.2) 0.0 x10^3/uL (0.0-0.2) Sodium Level 141 mmol/L (136-145) 139 mmol/L (136-145) Potassium Level 4.0 mmol/L (3.5-5.1) 4.2 mmol/L (3.5-5.1) Chloride Level 105 mmol/L (98-107) 104 mmol/L (98-107) Carbon Dioxide Level 25 mmol/L (21-32) 25 mmol/L (21-32) Anion Gap 11 (6-14) 10 (6-14) Blood Urea Nitrogen 63 mg/dL (8-26) 65 mg/dL (8-26) Creatinine 9.3 mg/dL (0.7-1.3) 8.9 mg/dL (0.7-1.3) Estimated GFR (Cockcroft-Gault) 6.7 7.0 BUN/Creatinine Ratio 7 (6-20) Glucose Level 126 mg/dL (70-99) 81 mg/dL (70-99) Calcium Level 8.6 mg/dL (8.5-10.1) 8.2 mg/dL (8.5-10.1) Total Bilirubin 0.3 mg/dL (0.2-1.0) Aspartate Amino Transf (AST/SGOT) 17 U/L (15-37) Alanine Aminotransferase (ALT/SGPT) 14 U/L (16-63) Alkaline Phosphatase 67 U/L (46-116) Total Protein 6.9 g/dL (6.4-8.2) Albumin 2.6 g/dL (3.4-5.0) 2.2 g/dL (3.4-5.0) Albumin/Globulin Ratio 0.6 (1.0-1.7) Urine Color Yellow Urine Clarity Clear Urine pH 7.0 Urine Specific [place] 1.010 Urine Protein >=300 mg/dL (NEG-TRACE) Urine Glucose (UA) Negative mg/dL (NEG) Urine Ketones (Stick) Negative mg/dL (NEG) Urine Blood Small (NEG) Urine Nitrite Negative (NEG) Urine Bilirubin Negative (NEG) Urine Urobilinogen Dipstick 0.2 mg/dL (0.2 mg/dL) Urine Leukocyte Esterase Negative (NEG) Urine RBC 3-5 /HPF (0-2) Urine WBC Occ /HPF (0-4) Urine Squamous Epithelial Cells Few /LPF Urine Bacteria 0 /HPF (0-FEW) Urine Mucus Slight /LPF Iron Level 34 ug/dL (65-175) Total Iron Binding Capacity 199 ug/dL (250-450) Iron Saturation 17 % (15-34) Ferritin 479 ng/mL (26-388) Phosphorus Level 5.9 mg/dL (2.6-4.7) Magnesium Level 2.4 mg/dL (1.8-2.4) Laboratory Tests Test 11/23/16 14:05 11/24/16 05:20 Iron Level 34 ug/dL (65-175) Total Iron Binding Capacity 199 ug/dL (250-450) Iron Saturation 17 % (15-34) Ferritin 479 ng/mL (26-388) White Blood Count 5.9 x10^3/uL (4.0-11.0) Red Blood Count 3.45 x10^6/uL (4.30-5.70) Hemoglobin 9.2 g/dL (13.0-17.5) Hematocrit 27.8 % (39.0-53.0) Mean Corpuscular Volume 81 fL (79-100) Mean Corpuscular Hemoglobin 27 pg (25-35) Mean Corpuscular Hemoglobin Concent 33 g/dL (31-37) Red Cell Distribution Width 17.0 % (11.5-14.5) Platelet Count 96 x10^3/uL (140-400) Neutrophils (%) (Auto) 63 % (31-73) Lymphocytes (%) (Auto) 23 % (24-48) Monocytes (%) (Auto) 11 % (0-9) Eosinophils (%) (Auto) 2 % (0-3) Basophils (%) (Auto) 1 % (0-3) Neutrophils # (Auto) 3.7 x10^3uL (1.8-7.7) Lymphocytes # (Auto) 1.4 x10^3/uL (1.0-4.8) Monocytes # (Auto) 0.7 x10^3/uL (0.0-1.1) Eosinophils # (Auto) 0.1 x10^3/uL (0.0-0.7) Basophils # (Auto) 0.0 x10^3/uL (0.0-0.2) Sodium Level 139 mmol/L (136-145) Potassium Level 4.2 mmol/L (3.5-5.1) Chloride Level 104 mmol/L (98-107) Carbon Dioxide Level 25 mmol/L (21-32) Anion Gap 10 (6-14) Blood Urea Nitrogen 65 mg/dL (8-26) Creatinine 8.9 mg/dL (0.7-1.3) Estimated GFR (Cockcroft-Gault) 7.0 Glucose Level 81 mg/dL (70-99) Calcium Level 8.2 mg/dL (8.5-10.1) Phosphorus Level 5.9 mg/dL (2.6-4.7) Magnesium Level 2.4 mg/dL (1.8-2.4) Albumin 2.2 g/dL (3.4-5.0) Medications Current Medications Clonidine HCl (Catapres) 0.3 mg 1X ONCE PO Last administered on 11/22/16 18: 29; Start 11/22/16 at 18:00; Stop 11/22/16 at 18:01; Status DC Clonidine HCl (Catapres) 0.2 mg PRN Q2HR PRN PO HYPERTENSION, SEE COMMENTS; Start 11/22/16 at 18:00 Nicardipine HCl 50 mg/Sodium Chloride 270 ml @ 0 mls/hr CONT PRN IV SEE I/O RECORD Last administered on 11/22/16 21:49; Start 11/22/16 at 21:15 Zolpidem Tartrate (Ambien) 5 mg PRN QHS PRN PO INSOMNIA; Start 11/23/16 at 12: 30; Stop 11/23/16 at 14:35; Status DC Magnesium Sulfate/ Dextrose 50 ml @ 25 mls/hr PRN DAILY PRN IV for Mag < 1.7 on am labs; Start 11/23/16 at 13:45 Zolpidem Tartrate (Ambien) 5 mg PRN QHS PRN PO INSOMNIA Last administered on 20:55; Start 11/23/16 at 14:00 Amlodipine Besylate (Norvasc) 10 mg QHS PO Last administered on 11/23/16 20:54 ; Start 11/23/16 at 21:00 Cetirizine HCl (ZyrTEC) 10 mg DAILY PO Last administered on 11/24/16 09:26; Start 11/23/16 at 17:30 Vitamin D (Vitamin D3) 1,000 unit DAILY PO Last administered on 11/24/16 09:26 ; Start 11/23/16 at 17:30 Cyanocobalamin (Vitamin B-12) 1,000 mcg QMONTH IM ; Start 12/23/16 at 09:00 Finasteride (Proscar) 5 mg HS PO Last administered on 11/23/16 20:54; Start at 21:00 Latanoprost (Xalatan) 1 drop HS OU Last administered on 11/23/16 20:54; Start 11/23/16 at 21:00 Levothyroxine Sodium (Synthroid) 150 mcg DAILY07 PO Last administered on 06:44; Start 11/23/16 at 17:30 Polyethylene Glycol (miraLAX PACKET) 17 gm DAILY PO ; Start 11/23/16 at 17:30 Atenolol (Tenormin) 100 mg DAILY PO Last administered on 11/24/16 09:27; Start 11/23/16 at 17:30 Atorvastatin Calcium (Lipitor) 80 mg QHS PO Last administered on 11/23/16 21: 06; Start 11/23/16 at 21:00 Terazosin HCl (Hytrin) 2 mg BID PO Last administered on 11/24/16 09:27; Start 11/23/16 at 21:00 Active Scripts Active Reported Cyanocobalamin Injection (Cyanocobalamin (Vitamin B-12)) 1,000 Mcg/1 Ml Vial 1 Ml IM QMONTH Amlodipine Besylate 10 Mg Tablet 10 Mg PO QHS Miralax (Polyethylene Glycol 3350) 17 Gm Powd.pack 1 Packet PO DAILY Atenolol 100 Mg Tablet 1 Tab PO DAILY Terazosin Hcl 2 Mg Capsule 2 Cap PO BID Levothyroxine Sodium 150 Mcg Tablet 1 Tab PO DAILY Latanoprost 2.5 Ml Drops 1 Drop OP HS Finasteride 5 Mg Tablet 5 Mg PO HS Cetirizine Hcl 10 Mg Tablet 10 Mg PO Atorvastatin Calcium 80 Mg Tablet 80 Mg PO HS Vitamin D3 (Cholecalciferol (Vitamin D3)) 1,000 Unit Tablet 1,000 Unit PO Vitals/I & O Vital Sign - Last 24 Hours 11/23/16 11/23/16 11/23/16 11/23/16 11:50 11:53 12:53 13:53 Temp 97.5 97.5 97.5 97.5 Pulse 59 59 58 62 Resp 18 B/P (MAP) 164/83 (110) 164/83 (110) 176/83 (114) 149/87 (107) Pulse Ox 100 O2 Delivery Room Air 11/23/16 11/23/16 11/23/16 11/23/16 15:55 16:30 16:53 17:53 Temp 97.6 97.6 Pulse 62 60 62 62 Resp 18 B/P (MAP) 149/87 (107) 142/82 (102) 164/83 (110) 163/72 (102) Pulse Ox 100 O2 Delivery Room Air 11/23/16 11/23/16 11/23/16 11/23/16 17:56 19:40 19:45 20:54 Temp 97.8 97.8 Pulse 65 62 62 Resp 18 B/P (MAP) 163/73 158/81 (106) 129/66 Pulse Ox 96 O2 Delivery Room Air Room Air 11/23/16 11/23/16 11/24/16 11/24/16 20:55 23:00 03:20 07:33 Temp 97.7 97.6 98.0 97.7 97.6 98.0 Pulse 62 60 60 60 Resp 18 18 19 B/P (MAP) 129/66 152/79 (103) 131/64 (86) 150/78 (102) Pulse Ox 98 97 96 O2 Delivery Room Air Room Air Room Air 11/24/16 11/24/16 11/24/16 11/24/16 08:00 09:27 09:27 11:11 Temp 97.3 97.3 Pulse 60 60 61 Resp 20 B/P (MAP) 150/78 150/78 115/69 (84) Pulse Ox 97 O2 Delivery Room Air Room Air THERESA SHAH III DO Nov 24, 2016 11:44
[2016-11-24 14:22] LABS: HEP A IGM ABDY Negative (Negative); HEP B SURFACE ABDY Non Reactive (.); PTH INTACT 189 pg/mL (15-65)
[2016-11-24 14:41] VITALS: BP 133/79
[2016-11-24] MEDS: CALCIUM ACETATE 667 MG CAPSULE PO SCH ×2 (15:02→17:38)
[2016-11-24] MEDS: IRON SUCROSE COMPLEX 200 MG in IV NORMAL SALINE 100ML 100 ML IV SCH (16:45)
[2016-11-24] MEDS: IV NORMAL SALINE 1000ML BAG 1,000 ML IV SCH (16:46)
[2016-11-24 19:25] VITALS: BP 137/76
[2016-11-24] MEDS: ATORVASTATIN CALCIUM 40 MG TABLET. PO SCH (20:44)
[2016-11-24] MEDS: amLODIPine BESYLATE 10 MG TABLET PO SCH (20:45)
[2016-11-24] MEDS: LATANOPROST 0.005% OPHTH SOLUTION 2.5ML BOTTLE. OU SCH (20:45)
[2016-11-24] MEDS: FINASTERIDE 5 MG TABLET. PO SCH (20:45)
[2016-11-24] MEDS: ZOLPIDEM 5 MG TABLET. PO PRN (22:21)
[2016-11-24 23:00] VITALS: BP 147/72
[2016-11-25] VITALS (13 sets, daily range): BP systolic 118–152; BP diastolic 67–85
[2016-11-25 05:50] LABS: BASO % 0 % (0-3); EOS % 2 % (0-3); HEMATOCRIT 27.7 % (39.0-53.0); HEMOGLOBIN 9.2 g/dL (13.0-17.5); LYMPH # 1.3 x10^3/uL (1.0-4.8); LYMPH % 20 % (24-48); MEAN CORPUSCULAR HEMOGLOBIN 27 pg (25-35); MEAN CORPUSCULAR HGB CONC 33 g/dL (31-37); MEAN CORPUSCULAR VOLUME 81 fL (79-100); MONO % 12 % (0-9); NEUT % 66 % (31-73); PLATELET COUNT 107 x10^3/uL (140-400); RED BLOOD COUNT 3.43 x10^6/uL (4.30-5.70); RED CELL DISTRIBUTION WIDTH 16.9 % (11.5-14.5); WHITE BLOOD COUNT 6.2 x10^3/uL (4.0-11.0)
[2016-11-25 06:12] LABS: ALBUMIN 2.3 g/dL (3.4-5.0); CREATININE 8.9 mg/dL (0.7-1.3); PHOSPHORUS 5.7 mg/dL (2.6-4.7); POTASSIUM 4.2 mmol/L (3.5-5.1)
[2016-11-25] MEDS: LEVOTHYROXINE 150 MCG TABLET PO SCH (06:25)
[2016-11-25] MEDS: IV NORMAL SALINE 1000ML BAG 1,000 ML IV SCH ×2 (06:37→14:25)
[2016-11-25] MEDS: CETIRIZINE HCL 10 MG TABLET. PO SCH (08:28)
[2016-11-25] MEDS: CHOLECALCIFEROL (VITAMIN D3) 1,000 UNIT TABLET PO SCH (08:28)
[2016-11-25] MEDS: ATENOLOL 50 MG TABLET. PO SCH (08:30)
[2016-11-25] MEDS: TERAZOSIN 1 MG CAPSULE. PO SCH ×2 (08:31→21:02)
[2016-11-25] MEDS: POLYETHYLENE GLYCOL 3350 17 GM PACKET. PO SCH (08:32)
[2016-11-25] MEDS: CALCIUM ACETATE 667 MG CAPSULE PO SCH ×3 (08:32→17:00)
[2016-11-25] MEDS ORDERED: ACETAMINOPHEN 325 MG TABLET. PO PRN (08:45)
[2016-11-25] MEDS ORDERED: hydrALAZINE 20 MG/ML VIAL. IVP PRN (08:45)
[2016-11-25] MEDS ORDERED: ONDANSETRON PF 4 MG/2 ML VIAL. IV PRN (08:45)
[2016-11-25] MEDS ORDERED: DOCUSATE SODIUM 100 MG CAPSULE. PO PRN (08:45)
[2016-11-25] MEDS ORDERED: MORPHINE SULFATE 2 MG/ML DISP.SYRIN. IV PRN (08:45)
--- NOTE | 2016-11-25 10:11 | PDOC ---
SUBJECTIVE ROS CKD IV --> ESRD? Doign Ok overall CVS: no Orthopnea, no CP RESP: no SOB, no [place] GI: min Nausea, no Vomiting : n Dysuria, no Urgency OBJECTIVE Vital Signs Vital Signs Date Time Temp Pulse Resp B/P (MAP) Pulse Ox O2 Delivery O2 Flow Rate FiO2 11/25/16 09:31 59 148/81 11/25/16 07:33 97.5 19 98 Room Air 97.5 I & 0 Intake and Output 11/26/16 06:59 Intake Total 240 ml Output Total 150 ml Balance 90 ml Intake Oral 240 ml Output Urine Total 150 ml PHYSICAL EXAM Physical Exam General Appearance: Awake Alert Oriented x 3 In no Distress Eyes: VIsion Unchanged Conjunctiva Normal EN: No EN Drainage Mucous Memb. moist Neck: no JVD no JVP Supple no Thyromegaly CVS: S1 S2 no Murmur No Gallop No Rub no Edema Resp: no Rales no Rhonchi no Acc. Muscle use GI: BS +ve NO Bruit Non Tender Non Distended : no CVA tenderness; no Suprapubic Tenderness SKIN: no Rashes Breast Exam deferred Mu.Sk: Adequate ROM no Muscle Atrophy Heme: Unable to palpate Obvious LAD no Splenomegaly NEURO: Good Strength and Tone Cranial Nerves II - XII grossly intact Psych: not Depressed no Active hallucination Assessment & Plan ARF - unclear etio; suspect progression of CKD. not much improvement with IVF yet. Current FLuid and E-lyte status does not necessitate emergent need for Dialysis. Will re-evaluate for Dialysis in am Renal Sclerosis as noted on US - ? Dehydration vs parenchymal dz. Trial of IVF CKD IV - unclear etio - await records from [facility]. Most likely due to HTNSive / NS Anemia: IV Iron fo rnow, Epogen after better BP Control. Transfuse as needed. HTN: on Cardene gtt. Current BP meds reviewed. See orders for changes. Proteinuria - (SUSPECT NEPHROTIC SYNDROME)quantitate with Ratio; await serologies as ordered Low A/g ratio - chck PEPS ^ed Phos - start binders Proteinruia - quantitation ongoing - start ARb Pt is konw to have DM until 2013 ([facility] Creat was 2.0 - 2.5 in 2016 also. He was on SIVA-i until recently but was stopped when Creat jumped from 3.1 to 3.9. Discussed Plan of Care and prognosis etc. at length with family and pt. He is willing to begin HD and will setup Permacath placement COMMENT/RELEVANT DATA Meds Current Medications Medications (Trade) Dose Ordered Sig/Juan Antonio Start Time Stop Time Status Last Admin Dose Admin Acetaminophen (Tylenol) 650 mg PRN Q6HRS PRN 11/25/16 08:45 Amlodipine Besylate (Norvasc) 10 mg QHS 11/23/16 21:00 11/24/16 20:45 10 MG Atenolol (Tenormin) 100 mg DAILY 11/23/16 17:30 11/25/16 08:30 100 MG Atorvastatin Calcium (Lipitor) 80 mg QHS 11/23/16 21:00 11/24/16 20:44 80 MG Calcium Acetate (Phoslo) 1,334 mg [id number] 11/24/16 12:00 11/25/16 08:32 1,334 MG Cetirizine HCl (ZyrTEC) 10 mg DAILY 11/23/16 17:30 11/25/16 08:28 10 MG Clonidine HCl (Catapres) 0.2 mg PRN Q2HR PRN 11/22/16 18:00 Cyanocobalamin (Vitamin B-12) 1,000 mcg QMONTH 12/23/16 09:00 Docusate Sodium (Colace) 100 mg PRN DAILY PRN 11/25/16 08:45 Finasteride (Proscar) 5 mg HS 11/23/16 21:00 11/24/16 20:45 5 MG Hydralazine HCl (Apresoline) 10 mg PRN Q4HRS PRN 11/25/16 08:45 Iron Sucrose 200 mg/Sodium Chloride 110 ml @ 55 mls/hr 3X/WEEK 11/24/16 12:30 12/03/16 10:59 11/24/16 16:45 55 MLS/HR Latanoprost (Xalatan) 1 drop HS 11/23/16 21:00 11/24/16 20:45 1 DROP Levothyroxine Sodium (Synthroid) 150 mcg DAILY07 11/23/16 17:30 11/25/16 06:25 150 MCG Magnesium Sulfate/ Dextrose 50 ml @ 25 mls/hr PRN DAILY PRN 11/23/16 13:45 Morphine Sulfate 2 mg PRN Q2HR PRN 11/25/16 08:45 Nicardipine HCl 50 mg/Sodium Chloride 270 ml @ 0 mls/hr CONT PRN 11/22/16 21:15 11/24/16 16:45 12.5 MLS/HR Ondansetron HCl (Zofran) 4 mg PRN Q6HRS PRN 11/25/16 08:45 Polyethylene Glycol (miraLAX PACKET) 17 gm DAILY 11/23/16 17:30 11/25/16 08:32 17 GM Sodium Chloride 1,000 ml @ 75 mls/hr [id number] 11/24/16 11:45 11/25/16 06:37 75 MLS/HR Terazosin HCl (Hytrin) 2 mg BID 11/23/16 21:00 11/25/16 08:31 2 MG Tramadol HCl (Ultram) 50 mg PRN Q6HRS PRN 11/25/16 08:45 Vitamin D (Vitamin D3) 1,000 unit DAILY 11/23/16 17:30 11/25/16 08:28 1,000 UNIT Zolpidem Tartrate (Ambien) 5 mg PRN QHS PRN 11/23/16 14:00 11/24/16 22:21 5 MG Lab Laboratory Tests Test 11/24/16 14:05 11/25/16 04:30 11/25/16 04:50 Erythrocyte Sedimentation Rate 28 (0-15) Sodium Level 138 mmol/L (136-145) Potassium Level 4.2 mmol/L (3.5-5.1) Chloride Level 104 mmol/L (98-107) Carbon Dioxide Level 23 mmol/L (21-32) Anion Gap 11 (6-14) Blood Urea Nitrogen 65 mg/dL (8-26) Creatinine 8.9 mg/dL (0.7-1.3) Estimated GFR (Cockcroft-Gault) 7.0 Glucose Level 96 mg/dL (70-99) Calcium Level 8.0 mg/dL (8.5-10.1) Phosphorus Level 5.7 mg/dL (2.6-4.7) Albumin 2.3 g/dL (3.4-5.0) White Blood Count 6.2 x10^3/uL (4.0-11.0) Red Blood Count 3.43 x10^6/uL (4.30-5.70) Hemoglobin 9.2 g/dL (13.0-17.5) Hematocrit 27.7 % (39.0-53.0) Mean Corpuscular Volume 81 fL (79-100) Mean Corpuscular Hemoglobin 27 pg (25-35) Mean Corpuscular Hemoglobin Concent 33 g/dL (31-37) Red Cell Distribution Width 16.9 % (11.5-14.5) Platelet Count 107 x10^3/uL (140-400) Neutrophils (%) (Auto) 66 % (31-73) Lymphocytes (%) (Auto) 20 % (24-48) Monocytes (%) (Auto) 12 % (0-9) Eosinophils (%) (Auto) 2 % (0-3) Basophils (%) (Auto) 0 % (0-3) Neutrophils # (Auto) 4.1 x10^3uL (1.8-7.7) Lymphocytes # (Auto) 1.3 x10^3/uL (1.0-4.8) Monocytes # (Auto) 0.7 x10^3/uL (0.0-1.1) Eosinophils # (Auto) 0.1 x10^3/uL (0.0-0.7) Basophils # (Auto) 0.0 x10^3/uL (0.0-0.2) Magnesium Level 2.5 mg/dL (1.8-2.4) YULISA FONTANA MD Nov 25, 2016 10:11
[2016-11-25] MEDS ORDERED: MORPHINE SULFATE 4 MG/ML DISP.SYRIN. IV PRN (10:47)
--- NOTE | 2016-11-25 11:12 | PDOC2 ---
CARDIAC CONSULT DATE OF CONSULT Date of Consult DATE: 11/25/16 TIME: 11:06 REASON FOR CONSULT Reason for Consult: Hypertension REFERRING PHYSICIAN Referring Physician: Dr. Muniz SOURCE Source: Chart review, Patient HISTORY OF PRESENT ILLNESS HISTORY OF PRESENT ILLNESS This is a 76 yo male, with a history of CKD and noncompliance, who presented from the [facility] secondary to abnormal labs. CR was reportedly near 10. Has previously been told that he may need to start hemodialysis. BP was significantly elevated upon admission, which prompted this consult. Cardene gtt was initiated. Home antihypertension therapy has been resumed. Patient reports compliance with medications. Reports that he has been feeling well recently, aside from decrease appetite. Bryon any chest pain, palpitations, dizziness, diaphoresis, SOA, orthopnea, [place], or nausea/vomiting. 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 No recent echocardiogram. PAST MEDICAL HISTORY Cardiovascular: HTN, Hyperlipidemia, Other (AAA s;p repair. SSS s/p PPM) Musculoskeletal: Osteoarthritis Renal/: Chronic renal insuff, Benign prostatic enlarg. Endocrine: Diabetes, Hypothyroidism PAST SURGICAL HISTORY Past Surgical History: Pacemaker, Appendectomy, Other (aortic aneurysm repair) FAMILY HISTORY Family History: Diabetes, Hypertension SOCIAL HISTORY Smoke: No ALCOHOL: none Drugs: None Lives: with Family CURRENT MEDICATIONS CURRENT MEDICATIONS Current Medications Medications (Trade) Dose Ordered Sig/Juan Antonio Route PRN Reason Start Time Stop Time Status Last Admin Dose Admin Iron Sucrose 200 mg/Sodium Chloride 110 ml @ 55 mls/hr 3X/WEEK IV 11/24/16 12:30 12/03/16 10:59 11/24/16 16:45 Sodium Chloride 1,000 ml @ 75 mls/hr [id number] IV 11/24/16 11:45 11/25/16 06:37 Calcium Acetate (Phoslo) 1,334 mg TIDWMEALS PO 11/24/16 12:00 11/25/16 08:32 Hydralazine HCl (Apresoline) 50 mg TID PO 11/25/16 09:00 11/25/16 09:31 ALLERGIES ALLERGIES: Coded Allergies: tamsulosin (Verified Allergy, Intermediate, 11/23/16) ROS Review of System 14 point ROS conducted with pertinent positives noted above in HPI. PHYSICAL EXAM General: Alert, Oriented X3, Cooperative, No acute distress HEENT: Atraumatic, Mucous membr. moist/pink Lungs: Clear to auscultation, Normal air movement Heart: Regular rate, Normal S1, Normal S2, Other (2/6 systolic murmur ) Abdomen: Soft, No tenderness Extremities: Other (1+ bilateral LE edema ) Skin: No significant lesion Neuro: Normal speech, Sensation intact Psych/Mental Status: Mental status NL, Mood NL MUSCULOSKELETAL: Osteoarthritic changes both hands VITALS VITALS Vital Signs Date Time Temp Pulse Resp B/P (MAP) Pulse Ox O2 Delivery O2 Flow Rate FiO2 11/25/16 10:44 97.6 60 18 135/72 (93) 99 Room Air 97.6 LABS Lab: Laboratory Tests Test 11/24/16 14:05 11/25/16 04:30 11/25/16 04:50 Erythrocyte Sedimentation Rate 28 (0-15) Sodium Level 138 mmol/L (136-145) Potassium Level 4.2 mmol/L (3.5-5.1) Chloride Level 104 mmol/L (98-107) Carbon Dioxide Level 23 mmol/L (21-32) Anion Gap 11 (6-14) Blood Urea Nitrogen 65 mg/dL (8-26) Creatinine 8.9 mg/dL (0.7-1.3) Estimated GFR (Cockcroft-Gault) 7.0 Glucose Level 96 mg/dL (70-99) Calcium Level 8.0 mg/dL (8.5-10.1) Phosphorus Level 5.7 mg/dL (2.6-4.7) Albumin 2.3 g/dL (3.4-5.0) White Blood Count 6.2 x10^3/uL (4.0-11.0) Red Blood Count 3.43 x10^6/uL (4.30-5.70) Hemoglobin 9.2 g/dL (13.0-17.5) Hematocrit 27.7 % (39.0-53.0) Mean Corpuscular Volume 81 fL (79-100) Mean Corpuscular Hemoglobin 27 pg (25-35) Mean Corpuscular Hemoglobin Concent 33 g/dL (31-37) Red Cell Distribution Width 16.9 % (11.5-14.5) Platelet Count 107 x10^3/uL (140-400) Neutrophils (%) (Auto) 66 % (31-73) Lymphocytes (%) (Auto) 20 % (24-48) Monocytes (%) (Auto) 12 % (0-9) Eosinophils (%) (Auto) 2 % (0-3) Basophils (%) (Auto) 0 % (0-3) Neutrophils # (Auto) 4.1 x10^3uL (1.8-7.7) Lymphocytes # (Auto) 1.3 x10^3/uL (1.0-4.8) Monocytes # (Auto) 0.7 x10^3/uL (0.0-1.1) Eosinophils # (Auto) 0.1 x10^3/uL (0.0-0.7) Basophils # (Auto) 0.0 x10^3/uL (0.0-0.2) Magnesium Level 2.5 mg/dL (1.8-2.4) ASSESSMENT/PLAN ASSESSMENT/PLAN 1. Malignant hypertension; home antiHTN therapy resumed. Scheduled Hydralazine added. BP now controlled, titrate off Cardene. Hydralazine IV PRN. Monitor trends to assess need for therapy titration. Check echo to assess LV function 2. Hyperlipidemia; statin therapy. check lipids 3. DANIEL on CKD; progression of CKD? to have HD catheter placed later today. As per nephrology 4. PPM in situ; interrogate device. 5. H/o noncompliance; discussed importance of medical compliance Problems: ELIZABETH JC APRN Nov 25, 2016 11:12
[2016-11-25 11:19] LABS: INR 1.1 (0.8-1.1); PROTHROMBIN TIME PATIENT 13.8 SEC (11.7-14.0)
--- NOTE | 2016-11-25 11:44 | PDOC ---
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 Noncompliance CKD3-4 HTN HLD Hypothyroidism BPH Anemia Glaucoma PLAN; FU WITH RENAL, HD cath today monitor urine output daily asked nurse, who didnot know how long pt was on nicardipine drip on amlodipine and atenolol now, add hydralazine, hope to dc nicardipine drip renal add losartan get card consult for HTN SW for outpt HD set up History of Present Illness History of Present Illness Pt seen at bedside. He is resting comfortably and in no acute distress. no sob, no leg edema Cr still very high 8.9 from 9.3. pt said he has no urination problem still on nicardipine drip. Nephrology is following, HD 11/25 Renal US: 1. Markedly echogenic kidneys compatible with medical renal disease. 2. No evidence of renal obstruction. 3. Single bilateral renal cysts. 4. Incomplete evaluation of the renal arteries due to overlying bowel. Vitals Vitals Vital Signs Date Time Temp Pulse Resp B/P (MAP) Pulse Ox O2 Delivery O2 Flow Rate FiO2 11/25/16 10:44 97.6 60 18 135/72 (93) 99 Room Air 97.6 Physical Exam General: Alert, Oriented X3, Cooperative, No acute distress Heart: Regular rate, Normal S1, Normal S2 Lungs: Clear, Other (no wheezes, no crackles) Abdomen: Soft, No tenderness Extremities: No cyanosis, No edema Skin: No rashes, No breakdown Labs LABS Laboratory Tests Test 11/24/16 14:05 11/25/16 04:30 11/25/16 04:50 11/25/16 10:40 Erythrocyte Sedimentation Rate 28 (0-15) Sodium Level 138 mmol/L (136-145) Potassium Level 4.2 mmol/L (3.5-5.1) Chloride Level 104 mmol/L (98-107) Carbon Dioxide Level 23 mmol/L (21-32) Anion Gap 11 (6-14) Blood Urea Nitrogen 65 mg/dL (8-26) Creatinine 8.9 mg/dL (0.7-1.3) Estimated GFR (Cockcroft-Gault) 7.0 Glucose Level 96 mg/dL (70-99) Calcium Level 8.0 mg/dL (8.5-10.1) Phosphorus Level 5.7 mg/dL (2.6-4.7) Albumin 2.3 g/dL (3.4-5.0) White Blood Count 6.2 x10^3/uL (4.0-11.0) Red Blood Count 3.43 x10^6/uL (4.30-5.70) Hemoglobin 9.2 g/dL (13.0-17.5) Hematocrit 27.7 % (39.0-53.0) Mean Corpuscular Volume 81 fL (79-100) Mean Corpuscular Hemoglobin 27 pg (25-35) Mean Corpuscular Hemoglobin Concent 33 g/dL (31-37) Red Cell Distribution Width 16.9 % (11.5-14.5) Platelet Count 107 x10^3/uL (140-400) Neutrophils (%) (Auto) 66 % (31-73) Lymphocytes (%) (Auto) 20 % (24-48) Monocytes (%) (Auto) 12 % (0-9) Eosinophils (%) (Auto) 2 % (0-3) Basophils (%) (Auto) 0 % (0-3) Neutrophils # (Auto) 4.1 x10^3uL (1.8-7.7) Lymphocytes # (Auto) 1.3 x10^3/uL (1.0-4.8) Monocytes # (Auto) 0.7 x10^3/uL (0.0-1.1) Eosinophils # (Auto) 0.1 x10^3/uL (0.0-0.7) Basophils # (Auto) 0.0 x10^3/uL (0.0-0.2) Magnesium Level 2.5 mg/dL (1.8-2.4) Prothrombin Time 13.8 SEC (11.7-14.0) Prothromb Time International Ratio 1.1 (0.8-1.1) Comment Review of Relevant I have reviewed the following items theresa (where applicable) has been applied. Labs Laboratory Tests Test 11/23/16 14:05 11/24/16 05:20 11/24/16 14:05 11/25/16 04:30 Estimated GFR (Non- 6 (>59) Iron Level 34 ug/dL (65-175) Total Iron Binding Capacity 199 ug/dL (250-450) Iron Saturation 17 % (15-34) Ferritin 479 ng/mL (26-388) EGFR 7 (>59) PTH (Intact) Specimen Description Comment (.) Parathyroid Hormone (Intact) 189 pg/mL (15-65) Calcium (PTH Intact) 8.6 mg/dL (8.6-10.2) Creatinine (PTH Intact) 7.85 mg/dL (0.76-1.27) Phosphorus (PTH Intact) 6.1 mg/dL (2.5-4.5) Hepatitis A IgM Antibody Negative (Negative) Hepatitis B Surface Antigen Negative (Negative) Hepatitis B Surface Antibody Non reactive (.) Hepatitis B Core Total Antibody Negative (Negative) Hepatitis B Core IgM Antibody Negative (Negative) Hepatitis C Antibody <0.1 s/co ratio White Blood Count 5.9 x10^3/uL (4.0-11.0) Red Blood Count 3.45 x10^6/uL (4.30-5.70) Hemoglobin 9.2 g/dL (13.0-17.5) Hematocrit 27.8 % (39.0-53.0) Mean Corpuscular Volume 81 fL (79-100) Mean Corpuscular Hemoglobin 27 pg (25-35) Mean Corpuscular Hemoglobin Concent 33 g/dL (31-37) Red Cell Distribution Width 17.0 % (11.5-14.5) Platelet Count 96 x10^3/uL (140-400) Neutrophils (%) (Auto) 63 % (31-73) Lymphocytes (%) (Auto) 23 % (24-48) Monocytes (%) (Auto) 11 % (0-9) Eosinophils (%) (Auto) 2 % (0-3) Basophils (%) (Auto) 1 % (0-3) Neutrophils # (Auto) 3.7 x10^3uL (1.8-7.7) Lymphocytes # (Auto) 1.4 x10^3/uL (1.0-4.8) Monocytes # (Auto) 0.7 x10^3/uL (0.0-1.1) Eosinophils # (Auto) 0.1 x10^3/uL (0.0-0.7) Basophils # (Auto) 0.0 x10^3/uL (0.0-0.2) Sodium Level 139 mmol/L (136-145) 138 mmol/L (136-145) Potassium Level 4.2 mmol/L (3.5-5.1) 4.2 mmol/L (3.5-5.1) Chloride Level 104 mmol/L (98-107) 104 mmol/L (98-107) Carbon Dioxide Level 25 mmol/L (21-32) 23 mmol/L (21-32) Anion Gap 10 (6-14) 11 (6-14) Blood Urea Nitrogen 65 mg/dL (8-26) 65 mg/dL (8-26) Creatinine 8.9 mg/dL (0.7-1.3) 8.9 mg/dL (0.7-1.3) Estimated GFR (Cockcroft-Gault) 7.0 7.0 Glucose Level 81 mg/dL (70-99) 96 mg/dL (70-99) Calcium Level 8.2 mg/dL (8.5-10.1) 8.0 mg/dL (8.5-10.1) Phosphorus Level 5.9 mg/dL (2.6-4.7) 5.7 mg/dL (2.6-4.7) Magnesium Level 2.4 mg/dL (1.8-2.4) Albumin 2.2 g/dL (3.4-5.0) 2.3 g/dL (3.4-5.0) Erythrocyte Sedimentation Rate 28 (0-15) Test 11/25/16 04:50 11/25/16 10:40 White Blood Count 6.2 x10^3/uL (4.0-11.0) Red Blood Count 3.43 x10^6/uL (4.30-5.70) Hemoglobin 9.2 g/dL (13.0-17.5) Hematocrit 27.7 % (39.0-53.0) Mean Corpuscular Volume 81 fL (79-100) Mean Corpuscular Hemoglobin 27 pg (25-35) Mean Corpuscular Hemoglobin Concent 33 g/dL (31-37) Red Cell Distribution Width 16.9 % (11.5-14.5) Platelet Count 107 x10^3/uL (140-400) Neutrophils (%) (Auto) 66 % (31-73) Lymphocytes (%) (Auto) 20 % (24-48) Monocytes (%) (Auto) 12 % (0-9) Eosinophils (%) (Auto) 2 % (0-3) Basophils (%) (Auto) 0 % (0-3) Neutrophils # (Auto) 4.1 x10^3uL (1.8-7.7) Lymphocytes # (Auto) 1.3 x10^3/uL (1.0-4.8) Monocytes # (Auto) 0.7 x10^3/uL (0.0-1.1) Eosinophils # (Auto) 0.1 x10^3/uL (0.0-0.7) Basophils # (Auto) 0.0 x10^3/uL (0.0-0.2) Magnesium Level 2.5 mg/dL (1.8-2.4) Prothrombin Time 13.8 SEC (11.7-14.0) Prothromb Time International Ratio 1.1 (0.8-1.1) Laboratory Tests Test 11/24/16 14:05 11/25/16 04:30 11/25/16 04:50 11/25/16 10:40 Erythrocyte Sedimentation Rate 28 (0-15) Sodium Level 138 mmol/L (136-145) Potassium Level 4.2 mmol/L (3.5-5.1) Chloride Level 104 mmol/L (98-107) Carbon Dioxide Level 23 mmol/L (21-32) Anion Gap 11 (6-14) Blood Urea Nitrogen 65 mg/dL (8-26) Creatinine 8.9 mg/dL (0.7-1.3) Estimated GFR (Cockcroft-Gault) 7.0 Glucose Level 96 mg/dL (70-99) Calcium Level 8.0 mg/dL (8.5-10.1) Phosphorus Level 5.7 mg/dL (2.6-4.7) Albumin 2.3 g/dL (3.4-5.0) White Blood Count 6.2 x10^3/uL (4.0-11.0) Red Blood Count 3.43 x10^6/uL (4.30-5.70) Hemoglobin 9.2 g/dL (13.0-17.5) Hematocrit 27.7 % (39.0-53.0) Mean Corpuscular Volume 81 fL (79-100) Mean Corpuscular Hemoglobin 27 pg (25-35) Mean Corpuscular Hemoglobin Concent 33 g/dL (31-37) Red Cell Distribution Width 16.9 % (11.5-14.5) Platelet Count 107 x10^3/uL (140-400) Neutrophils (%) (Auto) 66 % (31-73) Lymphocytes (%) (Auto) 20 % (24-48) Monocytes (%) (Auto) 12 % (0-9) Eosinophils (%) (Auto) 2 % (0-3) Basophils (%) (Auto) 0 % (0-3) Neutrophils # (Auto) 4.1 x10^3uL (1.8-7.7) Lymphocytes # (Auto) 1.3 x10^3/uL (1.0-4.8) Monocytes # (Auto) 0.7 x10^3/uL (0.0-1.1) Eosinophils # (Auto) 0.1 x10^3/uL (0.0-0.7) Basophils # (Auto) 0.0 x10^3/uL (0.0-0.2) Magnesium Level 2.5 mg/dL (1.8-2.4) Prothrombin Time 13.8 SEC (11.7-14.0) Prothromb Time International Ratio 1.1 (0.8-1.1) Medications Current Medications Clonidine HCl (Catapres) 0.3 mg 1X ONCE PO Last administered on 11/22/16 18: 29; Start 11/22/16 at 18:00; Stop 11/22/16 at 18:01; Status DC Clonidine HCl (Catapres) 0.2 mg PRN Q2HR PRN PO HYPERTENSION, SEE COMMENTS; Start 11/22/16 at 18:00 Nicardipine HCl 50 mg/Sodium Chloride 270 ml @ 0 mls/hr CONT PRN IV SEE I/O RECORD Last administered on 11/24/16t 16:45; Start 11/22/16 at 21:15 Zolpidem Tartrate (Ambien) 5 mg PRN QHS PRN PO INSOMNIA; Start 11/23/16 at 12: 30; Stop 11/23/16 at 14:35; Status DC Magnesium Sulfate/ Dextrose 50 ml @ 25 mls/hr PRN DAILY PRN IV for Mag < 1.7 on am labs; Start 11/23/16 at 13:45 Zolpidem Tartrate (Ambien) 5 mg PRN QHS PRN PO INSOMNIA Last administered on 22:21; Start 11/23/16 at 14:00 Amlodipine Besylate (Norvasc) 10 mg QHS PO Last administered on 11/24/16 20:45 ; Start 11/23/16 at 21:00 Cetirizine HCl (ZyrTEC) 10 mg DAILY PO Last administered on 11/25/16 08:28; Start 11/23/16 at 17:30 Vitamin D (Vitamin D3) 1,000 unit DAILY PO Last administered on 11/25/16 08:28 ; Start 11/23/16 at 17:30 Cyanocobalamin (Vitamin B-12) 1,000 mcg QMONTH IM ; Start 12/23/16 at 09:00 Finasteride (Proscar) 5 mg HS PO Last administered on 11/24/16 20:45; Start at 21:00 Latanoprost (Xalatan) 1 drop HS OU Last administered on 11/24/16 20:45; Start 11/23/16 at 21:00 Levothyroxine Sodium (Synthroid) 150 mcg DAILY07 PO Last administered on 06:25; Start 11/23/16 at 17:30 Polyethylene Glycol (miraLAX PACKET) 17 gm DAILY PO Last administered on 08:32; Start 11/23/16 at 17:30 Atenolol (Tenormin) 100 mg DAILY PO Last administered on 11/25/16 08:30; Start 11/23/16 at 17:30 Atorvastatin Calcium (Lipitor) 80 mg QHS PO Last administered on 11/24/16 20: 44; Start 11/23/16 at 21:00 Terazosin HCl (Hytrin) 2 mg BID PO Last administered on 11/25/16 08:31; Start 11/23/16 at 21:00 Iron Sucrose 200 mg/Sodium Chloride 110 ml @ 55 mls/hr 3X/WEEK IV Last administered on 11/24/16 16:45; Start 11/24/16 at 12:30; Stop 12/03/16 at 10:59 Sodium Chloride 1,000 ml @ 75 mls/hr [id number] IV Last administered on 06:37; Start 11/24/16 at 11:45 Calcium Acetate (Phoslo) 1,334 mg TIDWMEALS PO Last administered on 11/25/16 08:32; Start 11/24/16 at 12:00 Hydralazine HCl (Apresoline) 50 mg TID PO Last administered on 11/25/16 09:31 ; Start 11/25/16 at 09:00 Acetaminophen (Tylenol) 650 mg PRN Q6HRS PRN PO FEVER; Start 11/25/16 at 08:45 Ondansetron HCl (Zofran) 4 mg PRN Q6HRS PRN IV NAUSEA/VOMITING; Start 11/25/16 at 08:45 Morphine Sulfate 2 mg PRN Q2HR PRN IV PAIN; Start 11/25/16 at 08:45; Stop 11/25 at 10:47; Status DC Tramadol HCl (Ultram) 50 mg PRN Q6HRS PRN PO PAIN; Start 11/25/16 at 08:45 Hydralazine HCl (Apresoline) 10 mg PRN Q4HRS PRN IVP ELEVATED BP, SEE COMMENTS ; Start 11/25/16 at 08:45 Docusate Sodium (Colace) 100 mg PRN DAILY PRN PO CONSTIPATION; Start 11/25/16 at 08:45 Losartan Potassium (Cozaar) 50 mg DAILY PO ; Start 11/25/16 at 10:30 Morphine Sulfate 2 mg PRN Q2HR PRN IV PAIN; Start 11/25/16 at 10:47 Active Scripts Active Reported Cyanocobalamin Injection (Cyanocobalamin (Vitamin B-12)) 1,000 Mcg/1 Ml Vial 1 Ml IM QMONTH Amlodipine Besylate 10 Mg Tablet 10 Mg PO QHS Miralax (Polyethylene Glycol 3350) 17 Gm Powd.pack 1 Packet PO DAILY Atenolol 100 Mg Tablet 1 Tab PO DAILY Terazosin Hcl 2 Mg Capsule 2 Cap PO BID Levothyroxine Sodium 150 Mcg Tablet 1 Tab PO DAILY Latanoprost 2.5 Ml Drops 1 Drop OP HS Finasteride 5 Mg Tablet 5 Mg PO HS Cetirizine Hcl 10 Mg Tablet 10 Mg PO Atorvastatin Calcium 80 Mg Tablet 80 Mg PO HS Vitamin D3 (Cholecalciferol (Vitamin D3)) 1,000 Unit Tablet 1,000 Unit PO Vitals/I & O Vital Sign - Last 24 Hours 11/24/16 11/24/16 11/24/16 11/24/16 14:41 19:25 20:30 20:45 Temp 97.5 97.4 97.5 97.4 Pulse 60 64 64 Resp 16 18 B/P (MAP) 133/79 (97) 137/76 (96) 137/76 Pulse Ox 99 99 O2 Delivery Room Air Room Air Room Air 11/24/16 11/24/16 11/25/16 11/25/16 20:45 23:00 03:40 07:33 Temp 97.7 97.5 97.5 97.7 97.5 97.5 Pulse 64 60 60 59 Resp 18 18 19 B/P (MAP) 137/76 147/72 (97) 149/67 (94) 138/76 (96) Pulse Ox 100 100 98 O2 Delivery Room Air Room Air Room Air 11/25/16 11/25/16 11/25/16 11/25/16 08:30 08:31 09:31 10:44 Temp 97.6 97.6 Pulse 61 60 59 60 Resp 18 B/P (MAP) 138/80 138/80 148/81 135/72 (93) Pulse Ox 99 O2 Delivery Room Air Intake and Output 11/25/16 11/25/16 11/26/16 15:00 23:00 07:00 Intake Total 240 ml Output Total 150 ml Balance 90 ml DENILSON WALSH MD Nov 25, 2016 11:44
[2016-11-25] MEDS ORDERED: HEPARIN for IV BOLUS 10,000 UNIT/10 ML VIAL. ONE (13:54)
[2016-11-25] MEDS ORDERED: LIDOCAINE 1%/EPI 1:100,000 20 ML VIAL. ONE (13:54)
[2016-11-25 13:56] LABS: CHOLESTEROL/HDL RATIO 2.7
[2016-11-25] MEDS ORDERED: fentaNYL PF VIAL 100 MCG/2 ML VIAL ONE (14:03)
[2016-11-25] MEDS ORDERED: MIDAZOLAM HCL/PF 2 MG/2 ML VIAL. ONE (14:04)
--- NOTE | 2016-11-25 14:44 | PDOC ---
MODERATE SEDATION ASSESSMENT RISKS/ALTERNATIVES Risks/Alternatives Risks and alternatives of this type of sedation and procedure discussed with: RISK/ALTERNATIVES: Patient H & P ON CHART H & P H & P on chart and reviewed for co-morbid conditions and appropriate labs. H&P ON CHART: Yes STATUS PREG STATUS ASSESSED: Yes MEDS/ALLERGIES REVIEWED Meds/Allergies Reviewed Medications and Allergies including time and route of recently administered narcotics and sedatives. MEDS/ALLERGIES REVIEWED: Yes ASA RATING ASA RATING: II AIRWAY ASSESSMENT Airway Assessment Airway patency, oral function limitations, presence of caps, crowns, dentures, partials, and ability to extend neck assessed. AIRWAY ASSESSMENT: Yes MALLAMPATI SCORE MALLAMPATI SCORE: II PRE-SEDATION ASSESSMENT PRE-SEDATION ASSESSMENT: Yes JUNIE ANDRADE MD Nov 25, 2016 14:44
[2016-11-25] MEDS ORDERED: fentaNYL PF VIAL 100 MCG/2 ML VIAL IV ONE (14:45)
[2016-11-25] MEDS ORDERED: LIDOCAINE 1%/EPI 1:100,000 20 ML VIAL. IJ ONE (14:45)
[2016-11-25] MEDS ORDERED: MIDAZOLAM HCL/PF 2 MG/2 ML VIAL. IV ONE (14:45)
--- NOTE | 2016-11-25 14:45 | PDOC ---
BRIEF OPERATIVE NOTE Pre-Op Diagnosis ARF Post-Op Diagnosis same Procedure Performed Tunnelled HD catheter placement Surgeon Cornelio Anesthesia Type: Conscious Sedation Findings 23 cm Palindrome with excellent manual flows Complications No immediate JUNIE ANDRADE MD Nov 25, 2016 14:45
--- NOTE | 2016-11-25 14:59 | RAD ---
Procedure: Tunneled hemodialysis catheter placement Clinical Indication: 76-year-old requiring hemodialysis Sedation: Conscious sedation was administered for 17 minutes. The patient was monitored by a qualified independent observer throughout the time of sedation. Please refer to the medical record for exact doses of medications utilized to achieve moderate sedation. Antibiotics: Antibiotic was administered intravenously within 1 hour of the procedure start time. Fluoro Time: 0.2 minutes images: 1 Contrast: None Sterility: All elements of maximal sterile barrier technique including the use of a cap, mask, sterile gown, sterile gloves, large sterile sheet, appropriate hand hygiene, and 2% chlorhexidine for cutaneous antisepsis (or acceptable alternative antiseptic per current guidelines) were followed for this procedure. Consent: The procedure was explained in its entirety to the patient or the patients designated care support representative by a member of the treatment team, including a discussion of the risks, benefits and commonly accepted alternatives to the procedure, as well as the expected consequences of no therapy whatsoever. Discussion of the risks included, but was not limited to, those that are most frequent and those that are rare but possibly severe or life-threatening, as well as the possibility of unforeseen complications. Technique and Findings: Following informed consent, the patient was prepped and draped in the usual sterile fashion. Ultrasound interrogation of the right neck revealed patency and compressibility of the right internal jugular vein. A 21-gauge micropuncture was then used to gain access to this vein under ultrasound guidance. A hard copy ultrasound image was recorded. The needle was exchanged over a wire for a 4 Bulgarian sheath which was used to guide an Amplatz wire into the IVC. The skin over the right anterior chest wall was copiously anesthetized with 1% Lidocaine plus Epinephrine and a small dermatotomy was made. A 23 cm palindrome tunneled hemodialysis catheter was then tunneled subcutaneously towards the neck dermatotomy and deployed through a large caliber peel-away sheath under fluoroscopic guidance such that the distal tip resided in the mid right atrium. Manual flow rates were assessed and found to be excellent. The catheter was then flushed, packed with Heparin, capped, and sutured to the skin. The neck dermatotomy was closed with Dermabond. Complications: No immediate Impression: 1. Tunneled hemodialysis catheter placement as described. This catheter demonstrates excellent manual flow rates and is suitable for use immediately.
[2016-11-25] MEDS: LOSARTAN POTASSIUM 50 MG TABLET. PO SCH (16:43)
[2016-11-25 17:14] LABS: TOTAL SERUM CREATININE 7.95 mg/dL (0.76-1.27); TOTAL URINE CREATININE 106.9 mg/dL (Not Estab.)
[2016-11-25 17:14] LABS: C3 COMPLEMENT 123 mg/dL (82-167); C4 COMPLEMENT 42 mg/dL (14-44)
[2016-11-25] MEDS: ATORVASTATIN CALCIUM 40 MG TABLET. PO SCH (21:02)
[2016-11-25] MEDS: FINASTERIDE 5 MG TABLET. PO SCH (21:03)
[2016-11-25] MEDS: amLODIPine BESYLATE 10 MG TABLET PO SCH (21:03)
[2016-11-25] MEDS: LATANOPROST 0.005% OPHTH SOLUTION 2.5ML BOTTLE. OU SCH (21:03)
[2016-11-25] MEDS: ZOLPIDEM 5 MG TABLET. PO PRN (22:40)
[2016-11-26] VITALS (8 sets, daily range): BP systolic 95–180; BP diastolic 59–80
[2016-11-26 04:22] LABS: KAPPA LAMBDA RATIO 2.57 (0.26-1.65)
[2016-11-26 05:16] LABS: BASO % 1 % (0-3); EOS % 1 % (0-3); HEMATOCRIT 26.1 % (39.0-53.0); HEMOGLOBIN 8.6 g/dL (13.0-17.5); LYMPH # 1.3 x10^3/uL (1.0-4.8); LYMPH % 20 % (24-48); MEAN CORPUSCULAR HEMOGLOBIN 27 pg (25-35); MEAN CORPUSCULAR HGB CONC 33 g/dL (31-37); MEAN CORPUSCULAR VOLUME 81 fL (79-100); MONO % 13 % (0-9); NEUT % 65 % (31-73); PLATELET COUNT 100 x10^3/uL (140-400); RED BLOOD COUNT 3.22 x10^6/uL (4.30-5.70); RED CELL DISTRIBUTION WIDTH 17.3 % (11.5-14.5); WHITE BLOOD COUNT 6.5 x10^3/uL (4.0-11.0)
[2016-11-26 05:44] LABS: ALBUMIN 2.2 g/dL (3.4-5.0); CALCIUM 8.1 mg/dL (8.5-10.1); CREATININE 9.1 mg/dL (0.7-1.3); GFR 6.8; PHOSPHORUS 5.7 mg/dL (2.6-4.7); POTASSIUM 4.5 mmol/L (3.5-5.1)
[2016-11-26] MEDS: LEVOTHYROXINE 150 MCG TABLET PO SCH (06:03)
[2016-11-26] MEDS: CALCIUM ACETATE 667 MG CAPSULE PO SCH ×3 (08:51→16:18)
[2016-11-26] MEDS: CETIRIZINE HCL 10 MG TABLET. PO SCH (08:51)
[2016-11-26] MEDS: POLYETHYLENE GLYCOL 3350 17 GM PACKET. PO SCH (09:00)
--- NOTE | 2016-11-26 09:21 | CARD ---
APPROVED REPORT EXAM: Two-dimensional and M-mode echocardiogram with Doppler and color Doppler. Other Information Quality : Average Rhythm : NSR INDICATION Peripheral Edema 2D DIMENSIONS RVDd3.3 (2.9-3.5cm)Left Atrium(2D)4.2 (1.6-4.0cm) IVSd1.3 (0.7-1.1cm)Aortic Root(2D)3.1 (2.0-3.7cm) LVDd5.2 (3.9-5.9cm)LVOT Diameter2.1 (1.8-2.4cm) PWd1.3 (0.7-1.1cm)LVDs3.7 (2.5-4.0cm) FS (%) 28.6 %SV71.3 ml LVEF(%)54.8 (>50%) Aortic Valve AoV Peak Edil.190.2cm/sAoV VTI40.5cm AO Peak GR.14.5mmHgLVOT Peak Edil.108.9cm/s LVOT VTI 22.53cmAO Mean GR.9mmHg ELIZABETH (VMAX)1.76up3EZC (VTI)1.85cm2 AI P 1/2 [id number] Mitral Valve MV E Mqpuswfc62.1cm/sMV DECEL [id number] MV A Ptqwfljp22.0cm/sMV [id number] E/A Ratio0.6MV A Zuenyohf081mc MVA (PHT)2.62cm2 TDI E/Lateral E'7.3E/Medial E'10.7 Pulmonary Valve PV Peak Lkmwkghs51.5cm/sPV Peak Grad.3mmHg RVOT VTI20.5cm Tricuspid Valve TR P. Wbqkfftw358kw/sRAP CFODMTRQ1agZc TR Peak Gr.38xjXrZRUY25obAx Pulmonary Vein S1 Wvljpqos77.4cm/sD2 Mujjtroz52.0cm/s LEFT VENTRICLE The left ventricle is normal size. There is borderline concentric left ventricular hypertrophy. Left ventricle systolic function is normal. The Ejection Fraction is 50-55%. There is grossly normal LV se gmental wall motion. Not well visualized. Tissue Doppler imaging reveals mild left ventricular diasto lic dysfunction. There is no ventricular septal defect visualized. RIGHT VENTRICLE The right ventricle is normal size. The right ventricular systolic function is normal. There is a pac emaker lead seen in the right ventricle and atrium. ATRIA The left atrium is borderline dilated. The right atrium size is normal. The interatrial septum is int act with no evidence for an atrial septal defect or patent foramen ovale as noted on 2-D or Doppler i maging. AORTIC VALVE The aortic valve is moderately sclerotic. The aortic valve is trileaflet. Doppler and Color Flow reve aled mild aortic regurgitation. There is no significant aortic valvular stenosis. MITRAL VALVE Mitral annular calcification is mild. There is no mitral valve stenosis. Doppler and Color Flow revea led mild mitral regurgitation. TRICUSPID VALVE The tricuspid valve is not well visualized. Doppler and Color Flow revealed mild tricuspid regurgitat ion. The PA pressure was estimated at 39 mmHg. There is no tricuspid valve stenosis. PULMONIC VALVE The pulmonic valve is not well visualized. Doppler and Color Flow revealed no pulmonic valvular regur gitation. There is no pulmonic valvular stenosis. GREAT VESSELS The aortic root is normal in size. The ascending aorta is normal in size. The IVC is normal in size a nd collapses >50% with inspiration. PERICARDIAL EFFUSION There is no evidence of significant pericardial effusion. Critical Notification Critical Value: No <Conclusion> Left ventricle systolic function is normal. The Ejection Fraction is 50-55%. There is grossly normal LV segmental wall motion. Not well visualized. Doppler and Color Flow revealed mild tricuspid regurgitation. The PA pressure was estimated at 39 mmH g.
[2016-11-26 09:22] LABS: ALPHA 1 0.3 g/dL (0.0-0.4); ALPHA 2 0.9 g/dL (0.4-1.0); BETA 1.1 g/dL (0.7-1.3); GAMMA 1.7 g/dL (0.4-1.8); M-SPIKE Not Observed g/dL (Not Observed); PROTEIN TOTAL 6.9 g/dL (6.0-8.5)
[2016-11-26] MEDS ORDERED: IV NORMAL SALINE 1000ML BAG 1,000 ML IV PRN ×2 (12:02)
[2016-11-26] MEDS ORDERED: diphenhydrAMINE 50 MG/ML VIAL IV PRN ×2 (12:15)
[2016-11-26] MEDS ORDERED: DIALYSIS PATIENT. MC PRN (12:15)
--- NOTE | 2016-11-26 12:37 | PDOC ---
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 Noncompliance CKD3-4 HTN HLD Hypothyroidism BPH Anemia Glaucoma PLAN; FU WITH RENAL, HD cath done, Start HD 11/26 monitor urine output daily off nicardipine drip on amlodipine and atenolol now, add hydralazine renal added losartan get card consult for HTN SW for outpt HD set up hope dc soon History of Present Illness History of Present Illness Pt seen at bedside. He is resting comfortably and in no acute distress. chronic sob, no leg edema Cr still very high 9.1. pt said he has no urination problem off nicardipine drip. Nephrology is following, HD 11/26 Renal US: 1. Markedly echogenic kidneys compatible with medical renal disease. 2. No evidence of renal obstruction. 3. Single bilateral renal cysts. 4. Incomplete evaluation of the renal arteries due to overlying bowel. ROS: no fever, chills, sob or chest pain Vitals Vitals Vital Signs Date Time Temp Pulse Resp B/P (MAP) Pulse Ox O2 Delivery O2 Flow Rate FiO2 11/26/16 11:00 98.4 60 17 140/75 (96) 98 Room Air 98.4 11/25/16 14:59 2.0 Physical Exam General: Alert, Oriented X3, Cooperative, No acute distress Heart: Regular rate, Normal S1, Normal S2, Other (2/6 systolic murmur ) Lungs: Clear, Other (no wheezes, no crackles) Abdomen: Soft, No tenderness Extremities: Other (1+ bilateral LE edema ) Skin: No significant lesion Labs LABS Laboratory Tests Test 11/26/16 04:20 White Blood Count 6.5 x10^3/uL (4.0-11.0) Red Blood Count 3.22 x10^6/uL (4.30-5.70) Hemoglobin 8.6 g/dL (13.0-17.5) Hematocrit 26.1 % (39.0-53.0) Mean Corpuscular Volume 81 fL (79-100) Mean Corpuscular Hemoglobin 27 pg (25-35) Mean Corpuscular Hemoglobin Concent 33 g/dL (31-37) Red Cell Distribution Width 17.3 % (11.5-14.5) Platelet Count 100 x10^3/uL (140-400) Neutrophils (%) (Auto) 65 % (31-73) Lymphocytes (%) (Auto) 20 % (24-48) Monocytes (%) (Auto) 13 % (0-9) Eosinophils (%) (Auto) 1 % (0-3) Basophils (%) (Auto) 1 % (0-3) Neutrophils # (Auto) 4.3 x10^3uL (1.8-7.7) Lymphocytes # (Auto) 1.3 x10^3/uL (1.0-4.8) Monocytes # (Auto) 0.8 x10^3/uL (0.0-1.1) Eosinophils # (Auto) 0.1 x10^3/uL (0.0-0.7) Basophils # (Auto) 0.0 x10^3/uL (0.0-0.2) Sodium Level 139 mmol/L (136-145) Potassium Level 4.5 mmol/L (3.5-5.1) Chloride Level 105 mmol/L (98-107) Carbon Dioxide Level 25 mmol/L (21-32) Anion Gap 9 (6-14) Blood Urea Nitrogen 66 mg/dL (8-26) Creatinine 9.1 mg/dL (0.7-1.3) Estimated GFR (Cockcroft-Gault) 6.8 Glucose Level 83 mg/dL (70-99) Calcium Level 8.1 mg/dL (8.5-10.1) Phosphorus Level 5.7 mg/dL (2.6-4.7) Magnesium Level 2.5 mg/dL (1.8-2.4) Albumin 2.2 g/dL (3.4-5.0) Comment Review of Relevant I have reviewed the following items theresa (where applicable) has been applied. Labs Laboratory Tests Test 11/24/16 14:05 11/24/16 15:45 11/25/16 04:30 11/25/16 04:50 Erythrocyte Sedimentation Rate 28 (0-15) Urine Creatinine 24 Hour 962 mg/24 hr (3107-1532) Creatinine Clearance 24 Hour 8 mL/min (97-137) Creatinine 7.95 mg/dL (0.76-1.27) 8.9 mg/dL (0.7-1.3) Estimated GFR (Non- 6 (>59) EGFR 7 (>59) Sodium Level 138 mmol/L (136-145) Potassium Level 4.2 mmol/L (3.5-5.1) Chloride Level 104 mmol/L (98-107) Carbon Dioxide Level 23 mmol/L (21-32) Anion Gap 11 (6-14) Blood Urea Nitrogen 65 mg/dL (8-26) Estimated GFR (Cockcroft-Gault) 7.0 Glucose Level 96 mg/dL (70-99) Calcium Level 8.0 mg/dL (8.5-10.1) Phosphorus Level 5.7 mg/dL (2.6-4.7) Albumin 2.3 g/dL (3.4-5.0) Triglycerides Level 70 mg/dL (0-150) Cholesterol Level 146 mg/dL (0-200) LDL Cholesterol, Calculated 78 mg/dL (0-100) VLDL Cholesterol, Calculated 14 mg/dL (0-40) Non-HDL Cholesterol Calculated 92 mg/dL (0-129) HDL Cholesterol 54 mg/dL (40-60) Cholesterol/HDL Ratio 2.7 White Blood Count 6.2 x10^3/uL (4.0-11.0) Red Blood Count 3.43 x10^6/uL (4.30-5.70) Hemoglobin 9.2 g/dL (13.0-17.5) Hematocrit 27.7 % (39.0-53.0) Mean Corpuscular Volume 81 fL (79-100) Mean Corpuscular Hemoglobin 27 pg (25-35) Mean Corpuscular Hemoglobin Concent 33 g/dL (31-37) Red Cell Distribution Width 16.9 % (11.5-14.5) Platelet Count 107 x10^3/uL (140-400) Neutrophils (%) (Auto) 66 % (31-73) Lymphocytes (%) (Auto) 20 % (24-48) Monocytes (%) (Auto) 12 % (0-9) Eosinophils (%) (Auto) 2 % (0-3) Basophils (%) (Auto) 0 % (0-3) Neutrophils # (Auto) 4.1 x10^3uL (1.8-7.7) Lymphocytes # (Auto) 1.3 x10^3/uL (1.0-4.8) Monocytes # (Auto) 0.7 x10^3/uL (0.0-1.1) Eosinophils # (Auto) 0.1 x10^3/uL (0.0-0.7) Basophils # (Auto) 0.0 x10^3/uL (0.0-0.2) Magnesium Level 2.5 mg/dL (1.8-2.4) Test 11/25/16 10:40 11/26/16 04:20 Prothrombin Time 13.8 SEC (11.7-14.0) Prothromb Time International Ratio 1.1 (0.8-1.1) White Blood Count 6.5 x10^3/uL (4.0-11.0) Red Blood Count 3.22 x10^6/uL (4.30-5.70) Hemoglobin 8.6 g/dL (13.0-17.5) Hematocrit 26.1 % (39.0-53.0) Mean Corpuscular Volume 81 fL (79-100) Mean Corpuscular Hemoglobin 27 pg (25-35) Mean Corpuscular Hemoglobin Concent 33 g/dL (31-37) Red Cell Distribution Width 17.3 % (11.5-14.5) Platelet Count 100 x10^3/uL (140-400) Neutrophils (%) (Auto) 65 % (31-73) Lymphocytes (%) (Auto) 20 % (24-48) Monocytes (%) (Auto) 13 % (0-9) Eosinophils (%) (Auto) 1 % (0-3) Basophils (%) (Auto) 1 % (0-3) Neutrophils # (Auto) 4.3 x10^3uL (1.8-7.7) Lymphocytes # (Auto) 1.3 x10^3/uL (1.0-4.8) Monocytes # (Auto) 0.8 x10^3/uL (0.0-1.1) Eosinophils # (Auto) 0.1 x10^3/uL (0.0-0.7) Basophils # (Auto) 0.0 x10^3/uL (0.0-0.2) Sodium Level 139 mmol/L (136-145) Potassium Level 4.5 mmol/L (3.5-5.1) Chloride Level 105 mmol/L (98-107) Carbon Dioxide Level 25 mmol/L (21-32) Anion Gap 9 (6-14) Blood Urea Nitrogen 66 mg/dL (8-26) Creatinine 9.1 mg/dL (0.7-1.3) Estimated GFR (Cockcroft-Gault) 6.8 Glucose Level 83 mg/dL (70-99) Calcium Level 8.1 mg/dL (8.5-10.1) Phosphorus Level 5.7 mg/dL (2.6-4.7) Magnesium Level 2.5 mg/dL (1.8-2.4) Albumin 2.2 g/dL (3.4-5.0) Laboratory Tests Test 11/26/16 04:20 White Blood Count 6.5 x10^3/uL (4.0-11.0) Red Blood Count 3.22 x10^6/uL (4.30-5.70) Hemoglobin 8.6 g/dL (13.0-17.5) Hematocrit 26.1 % (39.0-53.0) Mean Corpuscular Volume 81 fL (79-100) Mean Corpuscular Hemoglobin 27 pg (25-35) Mean Corpuscular Hemoglobin Concent 33 g/dL (31-37) Red Cell Distribution Width 17.3 % (11.5-14.5) Platelet Count 100 x10^3/uL (140-400) Neutrophils (%) (Auto) 65 % (31-73) Lymphocytes (%) (Auto) 20 % (24-48) Monocytes (%) (Auto) 13 % (0-9) Eosinophils (%) (Auto) 1 % (0-3) Basophils (%) (Auto) 1 % (0-3) Neutrophils # (Auto) 4.3 x10^3uL (1.8-7.7) Lymphocytes # (Auto) 1.3 x10^3/uL (1.0-4.8) Monocytes # (Auto) 0.8 x10^3/uL (0.0-1.1) Eosinophils # (Auto) 0.1 x10^3/uL (0.0-0.7) Basophils # (Auto) 0.0 x10^3/uL (0.0-0.2) Sodium Level 139 mmol/L (136-145) Potassium Level 4.5 mmol/L (3.5-5.1) Chloride Level 105 mmol/L (98-107) Carbon Dioxide Level 25 mmol/L (21-32) Anion Gap 9 (6-14) Blood Urea Nitrogen 66 mg/dL (8-26) Creatinine 9.1 mg/dL (0.7-1.3) Estimated GFR (Cockcroft-Gault) 6.8 Glucose Level 83 mg/dL (70-99) Calcium Level 8.1 mg/dL (8.5-10.1) Phosphorus Level 5.7 mg/dL (2.6-4.7) Magnesium Level 2.5 mg/dL (1.8-2.4) Albumin 2.2 g/dL (3.4-5.0) Medications Current Medications Clonidine HCl (Catapres) 0.3 mg 1X ONCE PO Last administered on 11/22/16 18: 29; Start 11/22/16 at 18:00; Stop 11/22/16 at 18:01; Status DC Clonidine HCl (Catapres) 0.2 mg PRN Q2HR PRN PO HYPERTENSION, SEE COMMENTS; Start 11/22/16 at 18:00 Nicardipine HCl 50 mg/Sodium Chloride 270 ml @ 0 mls/hr CONT PRN IV SEE I/O RECORD Last administered on 11/24/16 16:45; Start 11/22/16 at 21:15 Zolpidem Tartrate (Ambien) 5 mg PRN QHS PRN PO INSOMNIA; Start 11/23/16 at 12: 30; Stop 11/23/16 at 14:35; Status DC Magnesium Sulfate/ Dextrose 50 ml @ 25 mls/hr PRN DAILY PRN IV for Mag < 1.7 on am labs; Start 11/23/16 at 13:45 Zolpidem Tartrate (Ambien) 5 mg PRN QHS PRN PO INSOMNIA Last administered on 22:40; Start 11/23/16 at 14:00 Amlodipine Besylate (Norvasc) 10 mg QHS PO Last administered on 11/25/16 21:03 ; Start 11/23/16 at 21:00 Cetirizine HCl (ZyrTEC) 10 mg DAILY PO Last administered on 11/26/16 08:51; Start 11/23/16 at 17:30 Vitamin D (Vitamin D3) 1,000 unit DAILY PO Last administered on 11/25/16 08:28 ; Start 11/23/16 at 17:30 Cyanocobalamin (Vitamin B-12) 1,000 mcg QMONTH IM ; Start 12/23/16 at 09:00 Finasteride (Proscar) 5 mg HS PO Last administered on 11/25/16 21:03; Start at 21:00 Latanoprost (Xalatan) 1 drop HS OU Last administered on 11/25/16 21:03; Start 11/23/16 at 21:00 Levothyroxine Sodium (Synthroid) 150 mcg DAILY07 PO Last administered on 06:03; Start 11/23/16 at 17:30 Polyethylene Glycol (miraLAX PACKET) 17 gm DAILY PO Last administered on 08:32; Start 11/23/16 at 17:30 Atenolol (Tenormin) 100 mg DAILY PO Last administered on 11/25/16 08:30; Start 11/23/16 at 17:30 Atorvastatin Calcium (Lipitor) 80 mg QHS PO Last administered on 11/25/16 21: 02; Start 11/23/16 at 21:00 Terazosin HCl (Hytrin) 2 mg BID PO Last administered on 11/25/16 21:02; Start 11/23/16 at 21:00 Iron Sucrose 200 mg/Sodium Chloride 110 ml @ 55 mls/hr 3X/WEEK IV Last administered on 11/24/16 16:45; Start 11/24/16 at 12:30; Stop 12/03/16 at 10:59 Sodium Chloride 1,000 ml @ 75 mls/hr [id number] IV Last administered on 06:37; Start 11/24/16 at 11:45; Stop 11/25/16 at 16:54; Status DC Calcium Acetate (Phoslo) 1,334 mg TIDWMEALS PO Last administered on 11/26/16 08:51; Start 11/24/16 at 12:00 Hydralazine HCl (Apresoline) 50 mg TID PO Last administered on 11/25/16 21:03 ; Start 11/25/16 at 09:00 Acetaminophen (Tylenol) 650 mg PRN Q6HRS PRN PO FEVER; Start 11/25/16 at 08:45 Ondansetron HCl (Zofran) 4 mg PRN Q6HRS PRN IV NAUSEA/VOMITING; Start 11/25/16 at 08:45 Morphine Sulfate 2 mg PRN Q2HR PRN IV PAIN; Start 11/25/16 at 08:45; Stop 11/25 at 10:47; Status DC Tramadol HCl (Ultram) 50 mg PRN Q6HRS PRN PO PAIN; Start 11/25/16 at 08:45 Hydralazine HCl (Apresoline) 10 mg PRN Q4HRS PRN IVP ELEVATED BP, SEE COMMENTS ; Start 11/25/16 at 08:45 Docusate Sodium (Colace) 100 mg PRN DAILY PRN PO CONSTIPATION; Start 11/25/16 at 08:45 Losartan Potassium (Cozaar) 50 mg DAILY PO Last administered on 11/25/16t 16:43 ; Start 11/25/16 at 10:30 Morphine Sulfate 2 mg PRN Q2HR PRN IV PAIN; Start 11/25/16 at 10:47 Heparin Sodium (Porcine) (Heparin Sodium) 10,000 unit STK-MED ONCE .ROUTE ; Start 11/25/16 at 13:54; Stop 11/25/16 at 13:55; Status DC Lidocaine/ Epinephrine (Xylocaine 1%-Epi 1:100,000) 20 ml STK-MED ONCE .ROUTE ; Start 11/25/16 at 13:54; Stop 11/25/16 at 13:55; Status DC Heparin Sodium/ Sodium Chloride 500 ml @ As Directed STK-MED ONCE .ROUTE ; Start 11/25/16 at 13:54; Stop 11/25/16 at 13:55; Status DC Cefazolin Sodium 50 ml @ As Directed STK-MED ONCE IV ; Start 11/25/16 at 14:03; Stop 11/25/16 at 14:04; Status DC Fentanyl Citrate (Fentanyl 2ml Vial) 100 mcg STK-MED ONCE .ROUTE ; Start at 14:03; Stop 11/25/16 at 14:04; Status DC Midazolam HCl (Versed) 2 mg STK-MED ONCE .ROUTE ; Start 11/25/16 at 14:04; Stop 11/25/16 at 14:05; Status DC Heparin Sodium/ Sodium Chloride 1,000 unit 1X ONCE IART Last administered on 14:56; Start 11/25/16 at 14:45; Stop 11/25/16 at 14:46; Status DC Midazolam HCl (Versed) 1 mg 1X ONCE IV Last administered on 11/25/16 14:57; Start 11/25/16 at 14:45; Stop 11/25/16 at 14:46; Status DC Fentanyl Citrate (Fentanyl 2ml Vial) 50 mcg 1X ONCE IV Last administered on 14:58; Start 11/25/16 at 14:45; Stop 11/25/16 at 14:46; Status DC Lidocaine/ Epinephrine (Xylocaine 1%-Epi 1:100,000) 8 ml 1X ONCE IJ Last administered on 11/25/16 14:57; Start 11/25/16 at 14:45; Stop 11/25/16 at 14:46 ; Status DC Cefazolin Sodium 50 ml @ 100 mls/hr 1X ONCE IV Last administered on 14:56; Start 11/25/16 at 14:45; Stop 11/25/16 at 15:14; Status DC Heparin Sodium (Porcine) (Heparin Sodium) 3,800 unit 1X ONCE INT CAT Last administered on 11/25/16 14:57; Start 11/25/16 at 14:45; Stop 11/25/16 at 14:46 ; Status DC Sodium Chloride 1,000 ml @ 1,000 mls/hr Q1H PRN IV hypotension; Start 11/26/16 at 12:02; Stop 11/26/16 at 18:01 Diphenhydramine HCl (Benadryl) 25 mg 1X PRN PRN IV ITCHING; Start 11/26/16 at 12:15; Stop 11/27/16 at 12:14 Diphenhydramine HCl (Benadryl) 25 mg 1X PRN PRN IV ITCHING; Start 11/26/16 at 12:15; Stop 11/27/16 at 12:14 Sodium Chloride 1,000 ml @ 400 mls/hr Q2H30M PRN IV PATENCY; Start 11/26/16 at 12:02; Stop 11/27/16 at 00:01 Info (PHARMACY MONITORING -- do not chart) 1 each PRN DAILY PRN MC SEE COMMENTS ; Start 11/26/16 at 12:15 Active Scripts Active Reported Cyanocobalamin Injection (Cyanocobalamin (Vitamin B-12)) 1,000 Mcg/1 Ml Vial 1 Ml IM QMONTH Amlodipine Besylate 10 Mg Tablet 10 Mg PO QHS Miralax (Polyethylene Glycol 3350) 17 Gm Powd.pack 1 Packet PO DAILY Atenolol 100 Mg Tablet 1 Tab PO DAILY Terazosin Hcl 2 Mg Capsule 2 Cap PO BID Levothyroxine Sodium 150 Mcg Tablet 1 Tab PO DAILY Latanoprost 2.5 Ml Drops 1 Drop OP HS Finasteride 5 Mg Tablet 5 Mg PO HS Cetirizine Hcl 10 Mg Tablet 10 Mg PO Atorvastatin Calcium 80 Mg Tablet 80 Mg PO HS Vitamin D3 (Cholecalciferol (Vitamin D3)) 1,000 Unit Tablet 1,000 Unit PO Vitals/I & O Vital Sign - Last 24 Hours 11/25/16 11/25/16 11/25/16 11/25/16 14:58 14:59 15:10 15:25 Pulse 59 62 59 Resp 15 14 B/P (MAP) 130/69 (89) 149/82 (104) Pulse Ox 100 100 98 99 O2 Delivery Nasal Cannula Nasal Cannula O2 Flow Rate 2.0 2.0 11/25/16 11/25/16 11/25/16 11/25/16 15:40 15:55 16:10 16:15 Pulse 60 59 60 B/P (MAP) 136/67 (90) 118/78 (91) 147/85 (105) Pulse Ox 97 99 99 O2 Delivery Room Air 11/25/16 11/25/16 11/25/16 11/25/16 16:40 16:43 16:44 17:10 Pulse 59 59 59 59 B/P (MAP) 152/81 (104) 141/72 141/72 145/70 (95) Pulse Ox 99 11/25/16 11/25/16 11/25/16 11/25/16 19:35 20:00 21:02 21:03 Temp 97.8 97.8 Pulse 61 61 61 Resp 18 B/P (MAP) 146/79 (101) 146/79 146/79 Pulse Ox 98 O2 Delivery Room Air Room Air 11/25/16 11/25/16 11/26/16 11/26/16 21:03 23:35 03:20 07:00 Temp 98.5 98.8 98.7 98.5 98.8 98.7 Pulse 61 60 60 60 Resp 18 18 19 B/P (MAP) 146/79 133/70 (91) 119/71 (87) 142/59 (86) Pulse Ox 98 97 98 O2 Delivery Room Air Room Air Room Air 11/26/16 11/26/16 07:40 11:00 Temp 98.4 98.4 Pulse 60 Resp 17 B/P (MAP) 140/75 (96) Pulse Ox 98 O2 Delivery Room Air Room Air DENILSON WALSH MD Nov 26, 2016 12:37
--- NOTE | 2016-11-26 13:29 | PDOC ---
Dialysis Progress Note Dialysis Note Dialysis Note Seen on Hemodialysis, tolerating treatment Well Vitals on Hemodialysis: 168/88 60 NSR afeb General Appearance: Awake: Alert Oriented x 3 Neck: No JVD or JVP Chest: CTA Micheal Heart: S1 S2 Abdomen - Soft NTND Extremities - No EdemaESRD ARF: Dialysis as below F 180 NR 3.0 Hrs 3 K 2.5 Ca 140 Na 35 HC03 Qb 300 + Qd 500+ Heparin 0 Units Uf 0.5 Kgs or to dry weight as tolerated May give 25-50 gms of 25% Albumin if needed to maintain Hemodynamic stability Treatment plan reviewed and discussed with supervisor television [employer] repair Vitals Vital Signs Vital Signs Date Time Temp Pulse Resp B/P (MAP) Pulse Ox O2 Delivery O2 Flow Rate FiO2 11/26/16 11:00 98.4 60 17 140/75 (96) 98 Room Air 98.4 11/25/16 14:59 2.0 Labs Last Labs Laboratory Tests Test 11/24/16 14:05 11/24/16 15:45 11/25/16 04:30 11/25/16 04:50 Erythrocyte Sedimentation Rate 28 (0-15) Urine Creatinine 24 Hour 962 mg/24 hr (9886-1792) Creatinine Clearance 24 Hour 8 mL/min (97-137) Creatinine 7.95 mg/dL (0.76-1.27) 8.9 mg/dL (0.7-1.3) Estimated GFR (Non- 6 (>59) EGFR 7 (>59) Sodium Level 138 mmol/L (136-145) Potassium Level 4.2 mmol/L (3.5-5.1) Chloride Level 104 mmol/L (98-107) Carbon Dioxide Level 23 mmol/L (21-32) Anion Gap 11 (6-14) Blood Urea Nitrogen 65 mg/dL (8-26) Estimated GFR (Cockcroft-Gault) 7.0 Glucose Level 96 mg/dL (70-99) Calcium Level 8.0 mg/dL (8.5-10.1) Phosphorus Level 5.7 mg/dL (2.6-4.7) Albumin 2.3 g/dL (3.4-5.0) Triglycerides Level 70 mg/dL (0-150) Cholesterol Level 146 mg/dL (0-200) LDL Cholesterol, Calculated 78 mg/dL (0-100) VLDL Cholesterol, Calculated 14 mg/dL (0-40) Non-HDL Cholesterol Calculated 92 mg/dL (0-129) HDL Cholesterol 54 mg/dL (40-60) Cholesterol/HDL Ratio 2.7 White Blood Count 6.2 x10^3/uL (4.0-11.0) Red Blood Count 3.43 x10^6/uL (4.30-5.70) Hemoglobin 9.2 g/dL (13.0-17.5) Hematocrit 27.7 % (39.0-53.0) Mean Corpuscular Volume 81 fL (79-100) Mean Corpuscular Hemoglobin 27 pg (25-35) Mean Corpuscular Hemoglobin Concent 33 g/dL (31-37) Red Cell Distribution Width 16.9 % (11.5-14.5) Platelet Count 107 x10^3/uL (140-400) Neutrophils (%) (Auto) 66 % (31-73) Lymphocytes (%) (Auto) 20 % (24-48) Monocytes (%) (Auto) 12 % (0-9) Eosinophils (%) (Auto) 2 % (0-3) Basophils (%) (Auto) 0 % (0-3) Neutrophils # (Auto) 4.1 x10^3uL (1.8-7.7) Lymphocytes # (Auto) 1.3 x10^3/uL (1.0-4.8) Monocytes # (Auto) 0.7 x10^3/uL (0.0-1.1) Eosinophils # (Auto) 0.1 x10^3/uL (0.0-0.7) Basophils # (Auto) 0.0 x10^3/uL (0.0-0.2) Magnesium Level 2.5 mg/dL (1.8-2.4) Test 11/25/16 10:40 11/26/16 04:20 Prothrombin Time 13.8 SEC (11.7-14.0) Prothromb Time International Ratio 1.1 (0.8-1.1) White Blood Count 6.5 x10^3/uL (4.0-11.0) Red Blood Count 3.22 x10^6/uL (4.30-5.70) Hemoglobin 8.6 g/dL (13.0-17.5) Hematocrit 26.1 % (39.0-53.0) Mean Corpuscular Volume 81 fL (79-100) Mean Corpuscular Hemoglobin 27 pg (25-35) Mean Corpuscular Hemoglobin Concent 33 g/dL (31-37) Red Cell Distribution Width 17.3 % (11.5-14.5) Platelet Count 100 x10^3/uL (140-400) Neutrophils (%) (Auto) 65 % (31-73) Lymphocytes (%) (Auto) 20 % (24-48) Monocytes (%) (Auto) 13 % (0-9) Eosinophils (%) (Auto) 1 % (0-3) Basophils (%) (Auto) 1 % (0-3) Neutrophils # (Auto) 4.3 x10^3uL (1.8-7.7) Lymphocytes # (Auto) 1.3 x10^3/uL (1.0-4.8) Monocytes # (Auto) 0.8 x10^3/uL (0.0-1.1) Eosinophils # (Auto) 0.1 x10^3/uL (0.0-0.7) Basophils # (Auto) 0.0 x10^3/uL (0.0-0.2) Sodium Level 139 mmol/L (136-145) Potassium Level 4.5 mmol/L (3.5-5.1) Chloride Level 105 mmol/L (98-107) Carbon Dioxide Level 25 mmol/L (21-32) Anion Gap 9 (6-14) Blood Urea Nitrogen 66 mg/dL (8-26) Creatinine 9.1 mg/dL (0.7-1.3) Estimated GFR (Cockcroft-Gault) 6.8 Glucose Level 83 mg/dL (70-99) Calcium Level 8.1 mg/dL (8.5-10.1) Phosphorus Level 5.7 mg/dL (2.6-4.7) Magnesium Level 2.5 mg/dL (1.8-2.4) Albumin 2.2 g/dL (3.4-5.0) Laboratory Tests Test 11/26/16 04:20 White Blood Count 6.5 x10^3/uL (4.0-11.0) Red Blood Count 3.22 x10^6/uL (4.30-5.70) Hemoglobin 8.6 g/dL (13.0-17.5) Hematocrit 26.1 % (39.0-53.0) Mean Corpuscular Volume 81 fL (79-100) Mean Corpuscular Hemoglobin 27 pg (25-35) Mean Corpuscular Hemoglobin Concent 33 g/dL (31-37) Red Cell Distribution Width 17.3 % (11.5-14.5) Platelet Count 100 x10^3/uL (140-400) Neutrophils (%) (Auto) 65 % (31-73) Lymphocytes (%) (Auto) 20 % (24-48) Monocytes (%) (Auto) 13 % (0-9) Eosinophils (%) (Auto) 1 % (0-3) Basophils (%) (Auto) 1 % (0-3) Neutrophils # (Auto) 4.3 x10^3uL (1.8-7.7) Lymphocytes # (Auto) 1.3 x10^3/uL (1.0-4.8) Monocytes # (Auto) 0.8 x10^3/uL (0.0-1.1) Eosinophils # (Auto) 0.1 x10^3/uL (0.0-0.7) Basophils # (Auto) 0.0 x10^3/uL (0.0-0.2) Sodium Level 139 mmol/L (136-145) Potassium Level 4.5 mmol/L (3.5-5.1) Chloride Level 105 mmol/L (98-107) Carbon Dioxide Level 25 mmol/L (21-32) Anion Gap 9 (6-14) Blood Urea Nitrogen 66 mg/dL (8-26) Creatinine 9.1 mg/dL (0.7-1.3) Estimated GFR (Cockcroft-Gault) 6.8 Glucose Level 83 mg/dL (70-99) Calcium Level 8.1 mg/dL (8.5-10.1) Phosphorus Level 5.7 mg/dL (2.6-4.7) Magnesium Level 2.5 mg/dL (1.8-2.4) Albumin 2.2 g/dL (3.4-5.0) YULISA FONTANA MD Nov 26, 2016 13:29
--- NOTE | 2016-11-26 13:43 | PDOC ---
[facility] Progress Notes Date and Time Date of Service 11/26/16 Time of Evaluation 1045 Subjective Subjective: No Chest Pain, No shortness of breath, No Palpitations Vitals Vitals Vital Signs Date Time Temp Pulse Resp B/P (MAP) Pulse Ox O2 Delivery O2 Flow Rate FiO2 11/26/16 11:00 98.4 60 17 140/75 (96) 98 Room Air 98.4 11/25/16 14:59 2.0 Weight Weight [ ] Laboratory Labs Laboratory Tests Test 11/26/16 04:20 White Blood Count 6.5 x10^3/uL (4.0-11.0) Red Blood Count 3.22 x10^6/uL (4.30-5.70) Hemoglobin 8.6 g/dL (13.0-17.5) Hematocrit 26.1 % (39.0-53.0) Mean Corpuscular Volume 81 fL (79-100) Mean Corpuscular Hemoglobin 27 pg (25-35) Mean Corpuscular Hemoglobin Concent 33 g/dL (31-37) Red Cell Distribution Width 17.3 % (11.5-14.5) Platelet Count 100 x10^3/uL (140-400) Neutrophils (%) (Auto) 65 % (31-73) Lymphocytes (%) (Auto) 20 % (24-48) Monocytes (%) (Auto) 13 % (0-9) Eosinophils (%) (Auto) 1 % (0-3) Basophils (%) (Auto) 1 % (0-3) Neutrophils # (Auto) 4.3 x10^3uL (1.8-7.7) Lymphocytes # (Auto) 1.3 x10^3/uL (1.0-4.8) Monocytes # (Auto) 0.8 x10^3/uL (0.0-1.1) Eosinophils # (Auto) 0.1 x10^3/uL (0.0-0.7) Basophils # (Auto) 0.0 x10^3/uL (0.0-0.2) Sodium Level 139 mmol/L (136-145) Potassium Level 4.5 mmol/L (3.5-5.1) Chloride Level 105 mmol/L (98-107) Carbon Dioxide Level 25 mmol/L (21-32) Anion Gap 9 (6-14) Blood Urea Nitrogen 66 mg/dL (8-26) Creatinine 9.1 mg/dL (0.7-1.3) Estimated GFR (Cockcroft-Gault) 6.8 Glucose Level 83 mg/dL (70-99) Calcium Level 8.1 mg/dL (8.5-10.1) Phosphorus Level 5.7 mg/dL (2.6-4.7) Magnesium Level 2.5 mg/dL (1.8-2.4) Albumin 2.2 g/dL (3.4-5.0) Physical Exam HEENT: Neck Supple W Full Motion Chest: Symmetric LUNGS: Clear to Auscultation Heart: S1S2, RRR, murmurs (2/6 systolic murmur ) Abdomen: Soft N/T Extremities: Other (trace bilateral LE edema ) Neurology: alert, oriented, follow commands Assessment Assessment 1. Malignant hypertension; now well controlled. Continue current therapy. Hydralazine IV PRN. Echo shows normal LV function, no WMA present. No further workup warranted. 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 2. Hyperlipidemia; lipids on goal. continue statin therapy. 3. DANIEL on CKD; progression of CKD? HD to commence today as per nephrology 4. PPM in situ ELIZABETH JC APRN Nov 26, 2016 13:43
[2016-11-26] MEDS: IRON SUCROSE COMPLEX 200 MG in IV NORMAL SALINE 100ML 100 ML IV SCH (15:13)
[2016-11-26 16:18] LABS: IMMUNOGLOBULIN A 436 mg/dL (61-437); IMMUNOGLOBULIN G 1649 mg/dL (700-1600); IMMUNOGLOBULIN M 153 mg/dL (15-143)
[2016-11-26] MEDS: ATENOLOL 50 MG TABLET. PO SCH (16:18)
[2016-11-26] MEDS: TERAZOSIN 1 MG CAPSULE. PO SCH ×2 (16:19→20:58)
[2016-11-26] MEDS: LOSARTAN POTASSIUM 50 MG TABLET. PO SCH (16:20)
[2016-11-26] MEDS: CHOLECALCIFEROL (VITAMIN D3) 1,000 UNIT TABLET PO SCH (16:20)
[2016-11-26] MEDS: HEPARIN PF for SUB-Q USE 5,000 UNIT/0.5 ML VIAL. SQ SCH ×2 (16:26→22:20)
[2016-11-26] MEDS: LATANOPROST 0.005% OPHTH SOLUTION 2.5ML BOTTLE. OU SCH (20:57)
[2016-11-26] MEDS: amLODIPine BESYLATE 10 MG TABLET PO SCH (20:58)
[2016-11-26] MEDS: ATORVASTATIN CALCIUM 40 MG TABLET. PO SCH (20:58)
[2016-11-26] MEDS: FINASTERIDE 5 MG TABLET. PO SCH (20:58)
[2016-11-26] MEDS: ZOLPIDEM 5 MG TABLET. PO PRN (22:21)
[2016-11-27 03:29] VITALS: BP 140/72
[2016-11-27] MEDS: traMADol 50 MG TABLET PO PRN ×2 (04:10→21:18)
[2016-11-27] MEDS: LEVOTHYROXINE 150 MCG TABLET PO SCH (06:28)
[2016-11-27] MEDS: HEPARIN PF for SUB-Q USE 5,000 UNIT/0.5 ML VIAL. SQ SCH ×2 (06:28→14:00)
[2016-11-27 07:00] VITALS: BP 143/70
[2016-11-27] MEDS: CALCIUM ACETATE 667 MG CAPSULE PO SCH ×3 (08:43→16:43)
[2016-11-27] MEDS: CETIRIZINE HCL 10 MG TABLET. PO SCH (08:43)
[2016-11-27] MEDS: ATENOLOL 50 MG TABLET. PO SCH (08:43)
[2016-11-27] MEDS: LOSARTAN POTASSIUM 50 MG TABLET. PO SCH (08:43)
[2016-11-27] MEDS: POLYETHYLENE GLYCOL 3350 17 GM PACKET. PO SCH (08:44)
[2016-11-27] MEDS: CHOLECALCIFEROL (VITAMIN D3) 1,000 UNIT TABLET PO SCH (08:44)
[2016-11-27] MEDS: TERAZOSIN 1 MG CAPSULE. PO SCH ×2 (08:44→21:16)
[2016-11-27] MEDS ORDERED: TEMAZEPAM 7.5 MG CAPSULE PO PRN (09:00)
--- NOTE | 2016-11-27 10:52 | PDOC ---
Dialysis Progress Note Dialysis Note Dialysis Note Seen on Hemodialysis, tolerating treatment Well Vitals on Hemodialysis: 123/70 61 NSR afeb General Appearance: Awake: Alert Oriented x 3 Neck: No JVD or JVP Chest: CTA Micheal Heart: S1 S2 Abdomen - Soft NTND Extremities - No Edema ESRD: Dialysis as below F 180 NR 3.0 Hrs 3 K 2.5 Ca 140 Na 35 HC03 Qb 300 + Qd 500+ Heparin 0 Units Uf 0 Kgs or to dry weight as tolerated May give 25-50 gms of 25% Albumin if needed to maintain Hemodynamic stability Treatment plan reviewed and discussed with media relations manager Vitals Vital Signs Vital Signs Date Time Temp Pulse Resp B/P (MAP) Pulse Ox O2 Delivery O2 Flow Rate FiO2 11/27/16 08:44 63 143/70 11/27/16 07:00 99.0 17 98 Room Air 99.0 11/25/16 14:59 2.0 Labs Last Labs Laboratory Tests Test 11/26/16 04:20 White Blood Count 6.5 x10^3/uL (4.0-11.0) Red Blood Count 3.22 x10^6/uL (4.30-5.70) Hemoglobin 8.6 g/dL (13.0-17.5) Hematocrit 26.1 % (39.0-53.0) Mean Corpuscular Volume 81 fL (79-100) Mean Corpuscular Hemoglobin 27 pg (25-35) Mean Corpuscular Hemoglobin Concent 33 g/dL (31-37) Red Cell Distribution Width 17.3 % (11.5-14.5) Platelet Count 100 x10^3/uL (140-400) Neutrophils (%) (Auto) 65 % (31-73) Lymphocytes (%) (Auto) 20 % (24-48) Monocytes (%) (Auto) 13 % (0-9) Eosinophils (%) (Auto) 1 % (0-3) Basophils (%) (Auto) 1 % (0-3) Neutrophils # (Auto) 4.3 x10^3uL (1.8-7.7) Lymphocytes # (Auto) 1.3 x10^3/uL (1.0-4.8) Monocytes # (Auto) 0.8 x10^3/uL (0.0-1.1) Eosinophils # (Auto) 0.1 x10^3/uL (0.0-0.7) Basophils # (Auto) 0.0 x10^3/uL (0.0-0.2) Sodium Level 139 mmol/L (136-145) Potassium Level 4.5 mmol/L (3.5-5.1) Chloride Level 105 mmol/L (98-107) Carbon Dioxide Level 25 mmol/L (21-32) Anion Gap 9 (6-14) Blood Urea Nitrogen 66 mg/dL (8-26) Creatinine 9.1 mg/dL (0.7-1.3) Estimated GFR (Cockcroft-Gault) 6.8 Glucose Level 83 mg/dL (70-99) Calcium Level 8.1 mg/dL (8.5-10.1) Phosphorus Level 5.7 mg/dL (2.6-4.7) Magnesium Level 2.5 mg/dL (1.8-2.4) Albumin 2.2 g/dL (3.4-5.0) YULISA FONTANA MD Nov 27, 2016 10:52
--- NOTE | 2016-11-27 10:57 | PDOC ---
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 Noncompliance CKD3-4 HTN HLD Hypothyroidism BPH Anemia Glaucoma PPM PLAN; FU WITH RENAL, HD cath done, Start HD on 11/26 monitor urine output daily off nicardipine drip on amlodipine and atenolol now, add hydralazine renal added losartan card consulted for HTN SW for outpt HD set up hope dc tmr after HD if outpt HD is set up? add restoril History of Present Illness History of Present Illness Pt seen at bedside. He is resting comfortably and in no acute distress. chronic sob, no leg edema pt said he has no urination problem off nicardipine drip. insomnia last night Nephrology is following, HD 11/26, 11/27 Renal US: 1. Markedly echogenic kidneys compatible with medical renal disease. 2. No evidence of renal obstruction. 3. Single bilateral renal cysts. 4. Incomplete evaluation of the renal arteries due to overlying bowel. ROS: no fever, chills, sob or chest pain Vitals Vitals Vital Signs Date Time Temp Pulse Resp B/P (MAP) Pulse Ox O2 Delivery O2 Flow Rate FiO2 11/27/16 08:44 63 143/70 11/27/16 07:00 99.0 17 98 Room Air 99.0 Physical Exam General: Alert, Oriented X3, Cooperative, No acute distress Heart: Regular rate, Normal S1, Normal S2, Other (2/6 systolic murmur ) Lungs: Clear, Other (no wheezes, no crackles) Abdomen: Soft, No tenderness Extremities: Other (1+ bilateral LE edema ) Skin: No significant lesion Comment Review of Relevant I have reviewed the following items theresa (where applicable) has been applied. Labs Laboratory Tests Test 11/26/16 04:20 White Blood Count 6.5 x10^3/uL (4.0-11.0) Red Blood Count 3.22 x10^6/uL (4.30-5.70) Hemoglobin 8.6 g/dL (13.0-17.5) Hematocrit 26.1 % (39.0-53.0) Mean Corpuscular Volume 81 fL (79-100) Mean Corpuscular Hemoglobin 27 pg (25-35) Mean Corpuscular Hemoglobin Concent 33 g/dL (31-37) Red Cell Distribution Width 17.3 % (11.5-14.5) Platelet Count 100 x10^3/uL (140-400) Neutrophils (%) (Auto) 65 % (31-73) Lymphocytes (%) (Auto) 20 % (24-48) Monocytes (%) (Auto) 13 % (0-9) Eosinophils (%) (Auto) 1 % (0-3) Basophils (%) (Auto) 1 % (0-3) Neutrophils # (Auto) 4.3 x10^3uL (1.8-7.7) Lymphocytes # (Auto) 1.3 x10^3/uL (1.0-4.8) Monocytes # (Auto) 0.8 x10^3/uL (0.0-1.1) Eosinophils # (Auto) 0.1 x10^3/uL (0.0-0.7) Basophils # (Auto) 0.0 x10^3/uL (0.0-0.2) Sodium Level 139 mmol/L (136-145) Potassium Level 4.5 mmol/L (3.5-5.1) Chloride Level 105 mmol/L (98-107) Carbon Dioxide Level 25 mmol/L (21-32) Anion Gap 9 (6-14) Blood Urea Nitrogen 66 mg/dL (8-26) Creatinine 9.1 mg/dL (0.7-1.3) Estimated GFR (Cockcroft-Gault) 6.8 Glucose Level 83 mg/dL (70-99) Calcium Level 8.1 mg/dL (8.5-10.1) Phosphorus Level 5.7 mg/dL (2.6-4.7) Magnesium Level 2.5 mg/dL (1.8-2.4) Albumin 2.2 g/dL (3.4-5.0) Medications Current Medications Clonidine HCl (Catapres) 0.3 mg 1X ONCE PO Last administered on 11/22/16t 18: 29; Start 11/22/16 at 18:00; Stop 11/22/16 at 18:01; Status DC Clonidine HCl (Catapres) 0.2 mg PRN Q2HR PRN PO HYPERTENSION, SEE COMMENTS; Start 11/22/16 at 18:00 Nicardipine HCl 50 mg/Sodium Chloride 270 ml @ 0 mls/hr CONT PRN IV SEE I/O RECORD Last administered on 11/24/16 16:45; Start 11/22/16 at 21:15 Zolpidem Tartrate (Ambien) 5 mg PRN QHS PRN PO INSOMNIA; Start 11/23/16 at 12: 30; Stop 11/23/16 at 14:35; Status DC Magnesium Sulfate/ Dextrose 50 ml @ 25 mls/hr PRN DAILY PRN IV for Mag < 1.7 on am labs; Start 11/23/16 at 13:45 Zolpidem Tartrate (Ambien) 5 mg PRN QHS PRN PO INSOMNIA Last administered on 22:21; Start 11/23/16 at 14:00 Amlodipine Besylate (Norvasc) 10 mg QHS PO Last administered on 11/26/16 20:58 ; Start 11/23/16 at 21:00 Cetirizine HCl (ZyrTEC) 10 mg DAILY PO Last administered on 11/27/16 08:43; Start 11/23/16 at 17:30 Vitamin D (Vitamin D3) 1,000 unit DAILY PO Last administered on 11/27/16 08:44 ; Start 11/23/16 at 17:30 Cyanocobalamin (Vitamin B-12) 1,000 mcg QMONTH IM ; Start 12/23/16 at 09:00 Finasteride (Proscar) 5 mg HS PO Last administered on 11/26/16 20:58; Start at 21:00 Latanoprost (Xalatan) 1 drop HS OU Last administered on 11/26/16 20:57; Start 11/23/16 at 21:00 Levothyroxine Sodium (Synthroid) 150 mcg DAILY07 PO Last administered on 06:28; Start 11/23/16 at 17:30 Polyethylene Glycol (miraLAX PACKET) 17 gm DAILY PO Last administered on 08:32; Start 11/23/16 at 17:30 Atenolol (Tenormin) 100 mg DAILY PO Last administered on 11/27/16 08:43; Start 11/23/16 at 17:30 Atorvastatin Calcium (Lipitor) 80 mg QHS PO Last administered on 11/26/16 20: 58; Start 11/23/16 at 21:00 Terazosin HCl (Hytrin) 2 mg BID PO Last administered on 11/27/16 08:44; Start 11/23/16 at 21:00 Iron Sucrose 200 mg/Sodium Chloride 110 ml @ 55 mls/hr 3X/WEEK IV Last administered on 11/26/16 15:13; Start 11/24/16 at 12:30; Stop 12/03/16 at 10:59 Sodium Chloride 1,000 ml @ 75 mls/hr [id number] IV Last administered on 06:37; Start 11/24/16 at 11:45; Stop 11/25/16 at 16:54; Status DC Calcium Acetate (Phoslo) 1,334 mg TIDWMEALS PO Last administered on 11/27/16 08:43; Start 11/24/16 at 12:00 Hydralazine HCl (Apresoline) 50 mg TID PO Last administered on 11/27/16 08:44 ; Start 11/25/16 at 09:00 Acetaminophen (Tylenol) 650 mg PRN Q6HRS PRN PO FEVER; Start 11/25/16 at 08:45 Ondansetron HCl (Zofran) 4 mg PRN Q6HRS PRN IV NAUSEA/VOMITING; Start 11/25/16 at 08:45 Morphine Sulfate 2 mg PRN Q2HR PRN IV PAIN; Start 11/25/16 at 08:45; Stop 11/25 at 10:47; Status DC Tramadol HCl (Ultram) 50 mg PRN Q6HRS PRN PO PAIN Last administered on 04:10; Start 11/25/16 at 08:45 Hydralazine HCl (Apresoline) 10 mg PRN Q4HRS PRN IVP ELEVATED BP, SEE COMMENTS ; Start 11/25/16 at 08:45 Docusate Sodium (Colace) 100 mg PRN DAILY PRN PO CONSTIPATION; Start 11/25/16 at 08:45 Losartan Potassium (Cozaar) 50 mg DAILY PO Last administered on 11/27/16 08:43 ; Start 11/25/16 at 10:30 Morphine Sulfate 2 mg PRN Q2HR PRN IV PAIN; Start 11/25/16 at 10:47 Heparin Sodium (Porcine) (Heparin Sodium) 10,000 unit ITema-MED ONCE .ROUTE ; Start 11/25/16 at 13:54; Stop 11/25/16 at 13:55; Status DC Lidocaine/ Epinephrine (Xylocaine 1%-Epi 1:100,000) 20 ml STK-MED ONCE .ROUTE ; Start 11/25/16 at 13:54; Stop 11/25/16 at 13:55; Status DC Heparin Sodium/ Sodium Chloride 500 ml @ As Directed STK-MED ONCE .ROUTE ; Start 11/25/16 at 13:54; Stop 11/25/16 at 13:55; Status DC Cefazolin Sodium 50 ml @ As Directed STK-MED ONCE IV ; Start 11/25/16 at 14:03; Stop 11/25/16 at 14:04; Status DC Fentanyl Citrate (Fentanyl 2ml Vial) 100 mcg STK-MED ONCE .ROUTE ; Start at 14:03; Stop 11/25/16 at 14:04; Status DC Midazolam HCl (Versed) 2 mg STK-MED ONCE .ROUTE ; Start 11/25/16 at 14:04; Stop 11/25/16 at 14:05; Status DC Heparin Sodium/ Sodium Chloride 1,000 unit 1X ONCE IART Last administered on 14:56; Start 11/25/16 at 14:45; Stop 11/25/16 at 14:46; Status DC Midazolam HCl (Versed) 1 mg 1X ONCE IV Last administered on 11/25/16 14:57; Start 11/25/16 at 14:45; Stop 11/25/16 at 14:46; Status DC Fentanyl Citrate (Fentanyl 2ml Vial) 50 mcg 1X ONCE IV Last administered on 14:58; Start 11/25/16 at 14:45; Stop 11/25/16 at 14:46; Status DC Lidocaine/ Epinephrine (Xylocaine 1%-Epi 1:100,000) 8 ml 1X ONCE IJ Last administered on 11/25/16 14:57; Start 11/25/16 at 14:45; Stop 11/25/16 at 14:46 ; Status DC Cefazolin Sodium 50 ml @ 100 mls/hr 1X ONCE IV Last administered on 14:56; Start 11/25/16 at 14:45; Stop 11/25/16 at 15:14; Status DC Heparin Sodium (Porcine) (Heparin Sodium) 3,800 unit 1X ONCE INT CAT Last administered on 11/25/16t 14:57; Start 11/25/16 at 14:45; Stop 11/25/16 at 14:46 ; Status DC Sodium Chloride 1,000 ml @ 1,000 mls/hr Q1H PRN IV hypotension; Start 11/26/16 at 12:02; Stop 11/26/16 at 18:01; Status DC Diphenhydramine HCl (Benadryl) 25 mg 1X PRN PRN IV ITCHING; Start 11/26/16 at 12:15; Stop 11/27/16 at 12:14 Diphenhydramine HCl (Benadryl) 25 mg 1X PRN PRN IV ITCHING; Start 11/26/16 at 12:15; Stop 11/27/16 at 12:14 Sodium Chloride 1,000 ml @ 400 mls/hr Q2H30M PRN IV PATENCY; Start 11/26/16 at 12:02; Stop 11/27/16 at 00:01; Status DC Info (PHARMACY MONITORING -- do not chart) 1 each PRN DAILY PRN MC SEE COMMENTS ; Start 11/26/16 at 12:15 Heparin Sodium (Porcine) (Heparin Sq) 5,000 unit Q8HRS SQ Last administered on 11/27/16t 06:28; Start 11/26/16 at 14:00 Temazepam (Restoril) 7.5 mg PRN QHS PRN PO INSOMNIA; Start 11/27/16 at 09:00 Darbepoetin Jese (Aranesp) 60 mcg WEEKLYHS SQ ; Start 11/27/16 at 21:00 Active Scripts Active Reported Cyanocobalamin Injection (Cyanocobalamin (Vitamin B-12)) 1,000 Mcg/1 Ml Vial 1 Ml IM QMONTH Amlodipine Besylate 10 Mg Tablet 10 Mg PO QHS Miralax (Polyethylene Glycol 3350) 17 Gm Powd.pack 1 Packet PO DAILY Atenolol 100 Mg Tablet 1 Tab PO DAILY Terazosin Hcl 2 Mg Capsule 2 Cap PO BID Levothyroxine Sodium 150 Mcg Tablet 1 Tab PO DAILY Latanoprost 2.5 Ml Drops 1 Drop OP HS Finasteride 5 Mg Tablet 5 Mg PO HS Cetirizine Hcl 10 Mg Tablet 10 Mg PO Atorvastatin Calcium 80 Mg Tablet 80 Mg PO HS Vitamin D3 (Cholecalciferol (Vitamin D3)) 1,000 Unit Tablet 1,000 Unit PO Vitals/I & O Vital Sign - Last 24 Hours 11/26/16 11/26/16 11/26/16 11/26/16 11:00 16:00 16:18 16:19 Temp 98.4 98.4 Pulse 60 60 60 60 Resp 17 B/P (MAP) 140/75 (96) 180/80 (113) 180/80 180/80 Pulse Ox 98 O2 Delivery Room Air 11/26/16 11/26/16 11/26/16 11/26/16 16:19 16:20 17:30 19:20 Temp 98.9 98.9 Pulse 60 60 60 60 Resp 18 B/P (MAP) 180/80 180/80 156/74 (101) 140/72 (94) Pulse Ox 99 O2 Delivery Room Air 11/26/16 11/26/16 11/26/16 11/26/16 20:00 20:58 20:58 20:59 Pulse 62 62 62 B/P (MAP) 140/72 140/72 140/72 O2 Delivery Room Air 11/26/16 11/27/16 11/27/16 11/27/16 23:20 03:29 04:10 05:10 Temp 98.6 98.4 98.6 98.4 Pulse 60 63 Resp 17 18 B/P (MAP) 119/59 (79) 140/72 (94) Pulse Ox 98 98 98 98 O2 Delivery Room Air Room Air Room Air Room Air 11/27/16 11/27/16 11/27/16 11/27/16 07:00 08:43 08:43 08:44 Temp 99.0 99.0 Pulse 63 63 63 63 Resp 17 B/P (MAP) 143/70 (94) 143/70 143/70 143/70 Pulse Ox 98 O2 Delivery Room Air 11/27/16 08:44 Pulse 63 B/P (MAP) 143/70 DENILSON WALSH MD Nov 27, 2016 10:57
[2016-11-27] MEDS ORDERED: IV NORMAL SALINE 1000ML BAG 1,000 ML IV PRN (12:47)
[2016-11-27] MEDS ORDERED: 0.9 % SODIUM CHLORIDE 10 ML DISP.SYRIN. IV PRN ×2 (13:00)
[2016-11-27] MEDS ORDERED: DIALYSIS PATIENT. MC PRN ×2 (13:00)
[2016-11-27 14:23] LABS: BASO % 0 % (0-3); EOS % 1 % (0-3); LYMPH # 1.1 x10^3/uL (1.0-4.8); LYMPH % 18 % (24-48); MEAN CORPUSCULAR HEMOGLOBIN 27 pg (25-35); MEAN CORPUSCULAR HGB CONC 32 g/dL (31-37); MEAN CORPUSCULAR VOLUME 82 fL (79-100); MONO % 17 % (0-9); NEUT % 63 % (31-73); PLATELET COUNT 100 x10^3/uL (140-400); RED CELL DISTRIBUTION WIDTH 17.9 % (11.5-14.5); WHITE BLOOD COUNT 6.1 x10^3/uL (4.0-11.0)
[2016-11-27 14:36] LABS: CREATININE 3.1 mg/dL (0.7-1.3); GFR 23.7
[2016-11-27 14:40] LABS: ALBUMIN 2.4 g/dL (3.4-5.0); CALCIUM 8.9 mg/dL (8.5-10.1); CREATININE 3.1 mg/dL (0.7-1.3); GFR 23.7; PHOSPHORUS 2.5 mg/dL (2.6-4.7)
[2016-11-27 15:00] VITALS: BP 129/68
--- NOTE | 2016-11-27 15:06 | RAD ---
Indication end-stage renal disease. Protocol study. Frontal and lateral views of the chest were obtained. Comparison is made to an examination 11/02/2012. Heart size and pulmonary vessels are within normal limits. The lungs are clear of acute infiltrates. A density, compatible with a calcified subcarinal lymph node, is noted. There is no acute parenchymal infiltrate or significant pleural fluid. A bipolar cardiac pacing device is noted as well as a right-sided dialysis catheter. IMPRESSION: No acute finding in the chest
[2016-11-27 19:20] VITALS: BP 143/81
[2016-11-27] MEDS ORDERED: DARBEPOETIN ALFA 60 MCG/0.3 ML DISP.SYRIN. SQ SCH (21:00)
[2016-11-27] MEDS: ATORVASTATIN CALCIUM 40 MG TABLET. PO SCH (21:17)
[2016-11-27] MEDS: ZOLPIDEM 5 MG TABLET. PO PRN (21:18)
[2016-11-27] MEDS: amLODIPine BESYLATE 10 MG TABLET PO SCH (21:18)
[2016-11-27] MEDS: FINASTERIDE 5 MG TABLET. PO SCH (21:24)
[2016-11-27] MEDS: LATANOPROST 0.005% OPHTH SOLUTION 2.5ML BOTTLE. OU SCH (21:46)
[2016-11-27 23:35] VITALS: BP 132/66
[2016-11-28] MEDS: HEPARIN PF for SUB-Q USE 5,000 UNIT/0.5 ML VIAL. SQ SCH ×2 (01:29→06:39)
[2016-11-28 03:48] VITALS: BP 122/54
[2016-11-28 05:33] LABS: BASO % 0 % (0-3); EOS % 1 % (0-3); HEMATOCRIT 25.3 % (39.0-53.0); HEMOGLOBIN 8.4 g/dL (13.0-17.5); LYMPH # 1.2 x10^3/uL (1.0-4.8); LYMPH % 20 % (24-48); MEAN CORPUSCULAR HEMOGLOBIN 27 pg (25-35); MEAN CORPUSCULAR HGB CONC 33 g/dL (31-37); MEAN CORPUSCULAR VOLUME 81 fL (79-100); MONO % 16 % (0-9); NEUT % 63 % (31-73); PLATELET COUNT 96 x10^3/uL (140-400); RED BLOOD COUNT 3.11 x10^6/uL (4.30-5.70); WHITE BLOOD COUNT 6.2 x10^3/uL (4.0-11.0)
[2016-11-28 05:41] LABS: ALBUMIN 2.3 g/dL (3.4-5.0); CALCIUM 8.5 mg/dL (8.5-10.1); CREATININE 4.9 mg/dL (0.7-1.3); PHOSPHORUS 3.5 mg/dL (2.6-4.7); POTASSIUM 4.2 mmol/L (3.5-5.1)
[2016-11-28] MEDS: LEVOTHYROXINE 150 MCG TABLET PO SCH (07:20)
[2016-11-28 07:47] VITALS: BP 153/74
[2016-11-28] MEDS: CALCIUM ACETATE 667 MG CAPSULE PO SCH ×2 (08:00→12:44)
[2016-11-28] MEDS ORDERED: IV NORMAL SALINE 1000ML BAG 1,000 ML IV PRN ×2 (08:04)
[2016-11-28] MEDS ORDERED: 0.9 % SODIUM CHLORIDE 10 ML DISP.SYRIN. IV PRN ×2 (08:15)
[2016-11-28] MEDS ORDERED: diphenhydrAMINE 50 MG/ML VIAL IV PRN ×2 (08:15)
[2016-11-28] MEDS ORDERED: DIALYSIS PATIENT. MC PRN (08:15)
[2016-11-28] MEDS ORDERED: ONDANSETRON ODT 4 MG TAB.RAPDIS. PO PRN (08:45)
[2016-11-28] MEDS: POLYETHYLENE GLYCOL 3350 17 GM PACKET. PO SCH (09:00)
--- NOTE | 2016-11-28 09:22 | PDOC ---
Dialysis Progress Note Dialysis Note Dialysis Note Seen on Hemodialysis, tolerating treatment Well Vitals on Hemodialysis: 182/86 60 NSR afeb General Appearance: Awake: Alert Oriented x 3 Neck: No JVD or JVP Chest: CTA Micheal Heart: S1 S2 Abdomen - Soft NTND Extremities - No Edema ESRD: Dialysis as below F 180 NR 3.5 Hrs 3 K 2.5 Ca 140 Na 30 HC03 Qb 300 + Qd 500+ Heparin 0 Units Uf 0 Kgs or to dry weight as tolerated May give 25-50 gms of 25% Albumin if needed to maintain Hemodynamic stability Treatment plan reviewed and discussed with multi township assessor Vitals Vital Signs Vital Signs Date Time Temp Pulse Resp B/P (MAP) Pulse Ox O2 Delivery O2 Flow Rate FiO2 11/28/16 08:15 Room Air 11/28/16 07:47 98.6 61 17 153/74 (100) 97 98.6 11/25/16 14:59 2.0 Labs Last Labs Laboratory Tests Test 11/27/16 14:15 11/27/16 20:40 11/28/16 04:30 White Blood Count 6.1 x10^3/uL (4.0-11.0) 6.2 x10^3/uL (4.0-11.0) Red Blood Count 3.40 x10^6/uL (4.30-5.70) 3.11 x10^6/uL (4.30-5.70) Hemoglobin 9.0 g/dL (13.0-17.5) 8.4 g/dL (13.0-17.5) Hematocrit 28.0 % (39.0-53.0) 25.3 % (39.0-53.0) Mean Corpuscular Volume 82 fL (79-100) 81 fL (79-100) Mean Corpuscular Hemoglobin 27 pg (25-35) 27 pg (25-35) Mean Corpuscular Hemoglobin Concent 32 g/dL (31-37) 33 g/dL (31-37) Red Cell Distribution Width 17.9 % (11.5-14.5) 18.0 % (11.5-14.5) Platelet Count 100 x10^3/uL (140-400) 96 x10^3/uL (140-400) Neutrophils (%) (Auto) 63 % (31-73) 63 % (31-73) Lymphocytes (%) (Auto) 18 % (24-48) 20 % (24-48) Monocytes (%) (Auto) 17 % (0-9) 16 % (0-9) Eosinophils (%) (Auto) 1 % (0-3) 1 % (0-3) Basophils (%) (Auto) 0 % (0-3) 0 % (0-3) Neutrophils # (Auto) 3.9 x10^3uL (1.8-7.7) 3.9 x10^3uL (1.8-7.7) Lymphocytes # (Auto) 1.1 x10^3/uL (1.0-4.8) 1.2 x10^3/uL (1.0-4.8) Monocytes # (Auto) 1.1 x10^3/uL (0.0-1.1) 1.0 x10^3/uL (0.0-1.1) Eosinophils # (Auto) 0.1 x10^3/uL (0.0-0.7) 0.1 x10^3/uL (0.0-0.7) Basophils # (Auto) 0.0 x10^3/uL (0.0-0.2) 0.0 x10^3/uL (0.0-0.2) Sodium Level 140 mmol/L (136-145) 138 mmol/L (136-145) Potassium Level 4.0 mmol/L (3.5-5.1) 4.2 mmol/L (3.5-5.1) Chloride Level 103 mmol/L (98-107) 103 mmol/L (98-107) Carbon Dioxide Level 33 mmol/L (21-32) 31 mmol/L (21-32) Anion Gap 4 (6-14) 4 (6-14) Blood Urea Nitrogen 15 mg/dL (8-26) 23 mg/dL (8-26) Creatinine 3.1 mg/dL (0.7-1.3) 4.9 mg/dL (0.7-1.3) Estimated GFR (Cockcroft-Gault) 23.7 14.0 Glucose Level 83 mg/dL (70-99) 85 mg/dL (70-99) Calcium Level 8.9 mg/dL (8.5-10.1) 8.5 mg/dL (8.5-10.1) Phosphorus Level 2.5 mg/dL (2.6-4.7) 3.5 mg/dL (2.6-4.7) Magnesium Level 1.9 mg/dL (1.8-2.4) 2.0 mg/dL (1.8-2.4) Albumin 2.4 g/dL (3.4-5.0) 2.3 g/dL (3.4-5.0) Glucose (Fingerstick) 97 mg/dL (70-99) Laboratory Tests Test 11/27/16 14:15 11/27/16 20:40 11/28/16 04:30 White Blood Count 6.1 x10^3/uL (4.0-11.0) 6.2 x10^3/uL (4.0-11.0) Red Blood Count 3.40 x10^6/uL (4.30-5.70) 3.11 x10^6/uL (4.30-5.70) Hemoglobin 9.0 g/dL (13.0-17.5) 8.4 g/dL (13.0-17.5) Hematocrit 28.0 % (39.0-53.0) 25.3 % (39.0-53.0) Mean Corpuscular Volume 82 fL (79-100) 81 fL (79-100) Mean Corpuscular Hemoglobin 27 pg (25-35) 27 pg (25-35) Mean Corpuscular Hemoglobin Concent 32 g/dL (31-37) 33 g/dL (31-37) Red Cell Distribution Width 17.9 % (11.5-14.5) 18.0 % (11.5-14.5) Platelet Count 100 x10^3/uL (140-400) 96 x10^3/uL (140-400) Neutrophils (%) (Auto) 63 % (31-73) 63 % (31-73) Lymphocytes (%) (Auto) 18 % (24-48) 20 % (24-48) Monocytes (%) (Auto) 17 % (0-9) 16 % (0-9) Eosinophils (%) (Auto) 1 % (0-3) 1 % (0-3) Basophils (%) (Auto) 0 % (0-3) 0 % (0-3) Neutrophils # (Auto) 3.9 x10^3uL (1.8-7.7) 3.9 x10^3uL (1.8-7.7) Lymphocytes # (Auto) 1.1 x10^3/uL (1.0-4.8) 1.2 x10^3/uL (1.0-4.8) Monocytes # (Auto) 1.1 x10^3/uL (0.0-1.1) 1.0 x10^3/uL (0.0-1.1) Eosinophils # (Auto) 0.1 x10^3/uL (0.0-0.7) 0.1 x10^3/uL (0.0-0.7) Basophils # (Auto) 0.0 x10^3/uL (0.0-0.2) 0.0 x10^3/uL (0.0-0.2) Sodium Level 140 mmol/L (136-145) 138 mmol/L (136-145) Potassium Level 4.0 mmol/L (3.5-5.1) 4.2 mmol/L (3.5-5.1) Chloride Level 103 mmol/L (98-107) 103 mmol/L (98-107) Carbon Dioxide Level 33 mmol/L (21-32) 31 mmol/L (21-32) Anion Gap 4 (6-14) 4 (6-14) Blood Urea Nitrogen 15 mg/dL (8-26) 23 mg/dL (8-26) Creatinine 3.1 mg/dL (0.7-1.3) 4.9 mg/dL (0.7-1.3) Estimated GFR (Cockcroft-Gault) 23.7 14.0 Glucose Level 83 mg/dL (70-99) 85 mg/dL (70-99) Calcium Level 8.9 mg/dL (8.5-10.1) 8.5 mg/dL (8.5-10.1) Phosphorus Level 2.5 mg/dL (2.6-4.7) 3.5 mg/dL (2.6-4.7) Magnesium Level 1.9 mg/dL (1.8-2.4) 2.0 mg/dL (1.8-2.4) Albumin 2.4 g/dL (3.4-5.0) 2.3 g/dL (3.4-5.0) Glucose (Fingerstick) 97 mg/dL (70-99) YULISA FONTANA MD Nov 28, 2016 09:22
[2016-11-28] MEDS ORDERED: ONDA4TAB12 PO (11:26)
[2016-11-28] MEDS ORDERED: LOSA50TA2 PO (11:26)
[2016-11-28] MEDS ORDERED: HYDR-2869 PO (11:26)
--- NOTE | 2016-11-28 11:33 | PDOC3 ---
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 vasomotor CKD3-4 HTN HLD Hypothyroidism BPH Anemia Glaucoma PPM Problems: CONSULTS card renal Brief Hospital Course Mr. Cruz is a 76 old M, comes for sob, and was found HTN urgency, and DANIEL. pT SAID he was compliant with meds. BP >200, need nicardipine x2 times. BP better controlled with 4 HTN meds. Cr >9, then started HD on 11/26 with chest tunnel HD cath. pt has mild chronic sob, trace leg edema. dc home with new hydralazine, losartan. atenolol, amlodipine. HD MWF as outpt. dc time 35min General: Alert, Oriented X3, Cooperative, No acute distress Heart: Regular rate, Normal S1, Normal S2, Other (2/6 systolic murmur ) Lungs: Clear, Other (no wheezes, no crackles) Abdomen: Soft, No tenderness Extremities: Other (1+ bilateral LE edema ) Skin: No significant lesion Problems: Disposition home CONDITION AT DISCHARGE: Improved Diet renal Scheduled Amlodipine Besylate (Amlodipine Besylate), 10 MG PO QHS, (Reported) Atenolol (Atenolol), 1 TAB PO DAILY, (Reported) Atorvastatin Calcium (Atorvastatin Calcium), 80 MG PO HS, (Reported) Cyanocobalamin (Vitamin B-12) (Cyanocobalamin Injection), 1 ML IM QMONTH, ( Reported) Finasteride (Finasteride), 5 MG PO HS, (Reported) Hydralazine Hcl (Hydralazine Hcl), 50 MG PO TID Latanoprost (Latanoprost), 1 DROP OP HS, (Reported) Levothyroxine Sodium (Levothyroxine Sodium), 1 TAB PO DAILY, (Reported) Losartan Potassium (Cozaar), 50 MG PO DAILY Polyethylene Glycol 3350 (Miralax), 1 PACKET PO DAILY, (Reported) Terazosin Hcl (Terazosin Hcl), 2 CAP PO BID, (Reported) Scheduled PRN Ondansetron (Ondansetron Odt), 4 MG PO PRN Q6HRS PRN for NAUSEA/VOMITING Miscellaneous Medications Cetirizine Hcl (Cetirizine Hcl), 10 MG PO, (Reported) Cholecalciferol (Vitamin D3) (Vitamin D3), 1,000 UNIT PO, (Reported) Follow Up renal in 2 weeks DENILSON WALSH MD Nov 28, 2016 11:33
[2016-11-28] MEDS: IRON SUCROSE COMPLEX 200 MG in IV NORMAL SALINE 100ML 100 ML IV SCH (11:50)
[2016-11-28] MEDS: CHOLECALCIFEROL (VITAMIN D3) 1,000 UNIT TABLET PO SCH (12:42)
[2016-11-28] MEDS: CETIRIZINE HCL 10 MG TABLET. PO SCH (12:42)
[2016-11-28] MEDS: LOSARTAN POTASSIUM 50 MG TABLET. PO SCH (12:43)
[2016-11-28] MEDS: ATENOLOL 50 MG TABLET. PO SCH (12:44)
[2016-11-28] MEDS: TERAZOSIN 1 MG CAPSULE. PO SCH (12:44)
[2016-11-28 14:04] VITALS: BP 161/70
[2016-11-28 14:25] LABS: GAMMA UR 26.3 % (.); M-SPIKE, % Not Observed % (Not Observed); PROTEIN 24 UR 6785 mg/24 hr (30-150); PROTEIN UR 753.9 mg/dL (Not Estab.)
[2016-12-23] MEDS ORDERED: CYANOCOBALAMIN (VITAMIN B-12) 1,000 MCG/ML VIAL IM SCH (09:00)
== END 2016-11-28 15:45 | disposition home or self-care (01) | DRG 673 ==
LOC: 2 SOUTH 17:36
PROVIDERS: ADMIT Internal Medicine; ATTEND Internal Medicine
PROC: 0JH63XZ Insertion of Tunneled Vascular Access Device into Chest Subcutaneous Tissue and Fascia, Percutaneous Approach (ICD-10-PCS; principal; 2016-11-25)
PROC: 02H633Z Insertion of Infusion Device into Right Atrium, Percutaneous Approach (ICD-10-PCS; 2016-11-25)
PROC: 5A1D60Z (ICD-10-PCS; 2016-11-25)
PROC: B244ZZZ Ultrasonography of Right Heart (ICD-10-PCS; 2016-11-25)
DX: N17.0 Acute kidney failure with tubular necrosis (principal); E43 Unspecified severe protein-calorie malnutrition; I12.0 Hypertensive chronic kidney disease with stage 5 chronic kidney disease or end stage renal disease; E11.22 Type 2 diabetes mellitus with diabetic chronic kidney disease; E44.0 Moderate protein-calorie malnutrition; N18.6 End stage renal disease; D64.9 Anemia, unspecified; I16.0 Hypertensive urgency; E03.9 Hypothyroidism, unspecified; Z68.29 Body mass index [BMI] 29.0-29.9, adult; E78.5 Hyperlipidemia, unspecified; H40.9 Unspecified glaucoma; N40.0 Benign prostatic hyperplasia without lower urinary tract symptoms; Z82.49 Family history of ischemic heart disease and other diseases of the circulatory system; Z83.3 Family history of diabetes mellitus; Z91.19 Patient's noncompliance with other medical treatment and regimen; M19.90 Unspecified osteoarthritis, unspecified site; Z88.8 Allergy status to other drugs, medicaments and biological substances
CPT/HCPCS: 36415; 36558; 71020; 76770; 76937; 77001; 80048; 80053; 80061; 80069; 80074; 81001; 82575; 82728; 82962; 83520; 83540; 83550; 83735; 83970; 84156; 84165; 84166; 85025; 85610; 85651; 86160; 86334; 86704; 86706; 93306; 99152; 99153; C1750; C1769; C1892; J0690; J0881; J1644; J1756; J2250; J2405; J3010; J3490; J7030; J7050; 97530

== ENCOUNTER 2017-10-28 16:31 | Inpatient (IN) | payer MEDICARE, OTHER ==
[~2017-10-28] VITALS: Ht 177.8 cm; Wt 75.9 kg
[~2017-10-28 16:31] MED LIST: AMLO10TA2 PO; ATEN100T PO; ATORVASTATIN CA80 MG PO; CETI10TA16 PO; CHOL10003 PO; CYAN10002 IM; FINA5TAB4 PO; HYDR-2869 PO; LATA2.5D3 OP; LEVO150T5 PO; LOSA50TA2 PO; ONDA4TAB12 PO; POLY17PO29 PO; TERA2CAP3 PO
[2017-10-28 18:44] VITALS: BP 132/78
[2017-10-28] MEDS ORDERED: LABETALOL 20 MG/4 ML DISP.SYRIN. IVP PRN (19:30)
[2017-10-28] MEDS ORDERED: MORPHINE SULFATE 4 MG/ML VIAL. IV PRN (19:30)
[2017-10-28] MEDS ORDERED: ONDANSETRON PF 4 MG/2 ML VIAL. IV PRN (19:30)
[2017-10-28 19:45] LABS: BASO # 0.1 x10^3/uL (0.0-0.2); BASO % 1 % (0-3); EOS # 0.1 x10^3/uL (0.0-0.7); EOS % 1 % (0-3); HEMATOCRIT 29.8 % (39.0-53.0); HEMOGLOBIN 9.6 g/dL (13.0-17.5); LYMPH # 1.3 x10^3/uL (1.0-4.8); LYMPH % 19 % (24-48); MEAN CORPUSCULAR HEMOGLOBIN 26 pg (25-35); MEAN CORPUSCULAR HGB CONC 32 g/dL (31-37); MEAN CORPUSCULAR VOLUME 82 fL (79-100); MONO # 0.9 x10^3/uL (0.0-1.1); MONO % 13 % (0-9); NEUT # 4.6 x10^3uL (1.8-7.7); NEUT % 67 % (31-73); PLATELET COUNT 152 x10^3/uL (140-400); RED BLOOD COUNT 3.65 x10^6/uL (4.30-5.70); RED CELL DISTRIBUTION WIDTH 19.8 % (11.5-14.5); WHITE BLOOD COUNT 6.9 x10^3/uL (4.0-11.0)
[2017-10-28 19:53] VITALS: BP 117/72
[2017-10-28 19:59] LABS: ALBUMIN 2.7 g/dL (3.4-5.0); ALBUMIN/GLOBULIN RATIO 0.6 (1.0-1.7); CALCIUM 8.9 mg/dL (8.5-10.1); CREATININE 5.7 mg/dL (0.7-1.3); GFR 11.7; POTASSIUM 3.6 mmol/L (3.5-5.1); TOTAL BILIRUBIN 0.9 mg/dL (0.2-1.0); TOTAL PROTEIN 7.4 g/dL (6.4-8.2)
[2017-10-28] MEDS ORDERED: LOSA25TA4 PO (20:02)
[2017-10-28] MEDS: LATANOPROST 0.005% OPHTH SOLUTION 2.5ML BOTTLE. OU SCH (21:19)
[2017-10-28 23:05] VITALS: BP 151/70
[2017-10-29 03:21] VITALS: BP 159/76
[2017-10-29 06:55] VITALS: BP 161/85
--- NOTE | 2017-10-29 07:54 | RAD ---
Portable chest, 10/28/2017: HISTORY: Shortness of breath, weakness, fatigue Comparison is made to a study from 11/27/2016. A left-sided transvenous pacemaker remains in place with 2 leads extending into the right heart. The right jugular dialysis catheter has been removed. The heart is mildly enlarged. There is calcific plaquing and tortuosity of the thoracic aorta. The pulmonary vascularity is normal. No pulmonary infiltrate is seen. There is no evidence of pleural fluid. IMPRESSION: 1. Cardiomegaly and aortic atherosclerosis. 2. No acute infiltrates. Electronically signed by: Ben James MD (10/29/2017 7:51 AM) [facility]
[2017-10-29] MEDS ORDERED: MIRT15TA3 PO (09:44)
[2017-10-29] MEDS ORDERED: LEVO112T4 PO (09:44)
[2017-10-29] MEDS ORDERED: HYDR-971 PO (09:44)
[2017-10-29] MEDS ORDERED: VIT1TABL71 PO (09:44)
[2017-10-29] MEDS ORDERED: SEVE800T9 PO (09:44)
[2017-10-29] MEDS ORDERED: ONDANSETRON ODT 4 MG TAB.RAPDIS. PO PRN (10:00)
[2017-10-29] MEDS: HYDROcodone/APAP 5/325MG 1 TAB TABLET PO PRN ×2 (10:18→19:14)
[2017-10-29] MEDS: CHOLECALCIFEROL (VITAMIN D3) 1,000 UNIT TABLET PO SCH (10:19)
[2017-10-29] MEDS: CETIRIZINE HCL 10 MG TABLET. PO SCH (10:19)
[2017-10-29] MEDS: LEVOTHYROXINE 112 MCG TABLET PO SCH (10:19)
[2017-10-29] MEDS: LOSARTAN POTASSIUM 25 MG TABLET. PO SCH ×2 (10:20→20:07)
[2017-10-29] MEDS: TERAZOSIN 1 MG CAPSULE. PO SCH ×2 (10:20→20:06)
[2017-10-29] MEDS: POLYETHYLENE GLYCOL 3350 17 GM PACKET. PO SCH (10:24)
[2017-10-29 10:50] VITALS: BP 151/62
--- NOTE | 2017-10-29 11:14 | PDOC1 ---
History and Physical Date of Admission Date of Admission DATE: 10/29/17 TIME: 11:14 Identification/Chief Complaint Chief Complaint ESRD on HD since Nov 08-. went to 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 Endocrine: Diabetes, Hypothyroidism Past Surgical History Past Surgical History: Pacemaker, Appendectomy, Other Family History Family History: Diabetes, Hypertension Social History ALCOHOL: none Drugs: None Lives: with Family Cardiovascular: HTN, Hyperlipidemia, Other GI: No pertinent hx Musculoskeletal: Osteoarthritis Renal/: Chronic renal insuff, Chronic renal failure, Benign prostatic enlarg. Endocrine: Diabetes, Hypothyroidism Dermatology: No pertinent hx Past Surgical History Past Surgical History: Pacemaker, Appendectomy, Other Family History Family History: Diabetes, Hypertension Social History Smoke: Quit ALCOHOL: none Drugs: None Current Medications Current Medications Current Medications Acetaminophen (Tylenol) 650 mg PRN Q6HRS PRN PO FEVER; Start 10/28/17 at 19:30 Morphine Sulfate (Morphine Sulfate) 4 mg PRN Q4HRS PRN IV PAIN; Start 10/28/17 at 19:30 Ondansetron HCl (Zofran) 4 mg PRN Q6HRS PRN IV NAUSEA/VOMITING; Start 10/28/17 at 19:30 Labetalol HCl (Normodyne Iv Push) 20 mg PRN Q4HRS PRN IVP HYPERTENSION, SEE COMMENTS; Start 10/28/17 at 19:30 Latanoprost (Xalatan) 1 drop QHS OU Last administered on 10/28/17at 21:19; Start 10/28/17 at 21:00 Cetirizine HCl (ZyrTEC) 5 mg DAILY PO Last administered on 10/29/17at 10:19; Start 10/29/17 at 11:00 Vitamin D (Vitamin D3) 1,000 unit DAILY PO Last administered on 10/29/17at 10:19 ; Start 10/29/17 at 11:00 Cyanocobalamin (Vitamin B-12) 1,000 mcg QMONTH IM ; Start 11/28/17 at 09:00 Finasteride (Proscar) 5 mg HS PO ; Start 10/29/17 at 21:00 Acetaminophen/ Hydrocodone Bitart (Lortab 5/325) 1 tab PRN Q6HRS PRN PO PAIN Last administered on 10/29/17at 10:18; Start 10/29/17 at 10:00 Levothyroxine Sodium (Synthroid) 224 mcg DAILYAC PO Last administered on at 10:19; Start 10/29/17 at 11:00 Losartan Potassium (Cozaar) 25 mg BID PO Last administered on 10/29/17at 10:20; Start 10/29/17 at 11:00 Ondansetron HCl (Zofran Odt) 4 mg PRN Q6HRS PRN PO NAUSEA/VOMITING; Start 10/29 at 10:00 Sevelamer Carbonate (Renvela) 800 mg TIDWMEALS PO ; Start 10/29/17 at 12:00 Atorvastatin Calcium (Lipitor) 40 mg QHS PO ; Start 10/29/17 at 21:00 Hydralazine HCl (Apresoline) 50 mg TID PO ; Start 10/29/17 at 14:00 Mirtazapine (Remeron) 7.5 mg QHS PO ; Start 10/29/17 at 21:00 Polyethylene Glycol (miraLAX PACKET) 17 gm DAILY PO Last administered on at 10:24; Start 10/29/17 at 11:00 Terazosin HCl (Hytrin) 4 mg BID PO Last administered on 10/29/17at 10:20; Start 10/29/17 at 11:00 Active Scripts Active Ondansetron Odt (Ondansetron) 4 Mg Tab.rapdis 4 Mg PO PRN Q6HRS PRN Hydralazine Hcl 50 Mg Tablet 50 Mg PO TID Reported [place] 5-325 Tablet (Acetaminophen/Hydrocodone Bitart) 1 Each Tablet 1 Tab PO PRN Q6HRS PRN Renvela (Sevelamer Carbonate) 800 Mg Tablet 800 Mg PO TIDWMEALS Praveena-Chon Rx Tablet (Vit B Cmplx 3/Fa/Vit C/Biotin) 1 Each Tablet 1 Each PO Mirtazapine 15 Mg Tablet 7.5 Mg PO QHS Levothyroxine Sodium 112 Mcg Tablet 224 Mcg PO DAILYAC Losartan Potassium 25 Mg Tablet 25 Mg PO BID Cyanocobalamin Injection (Cyanocobalamin (Vitamin B-12)) 1,000 Mcg/1 Ml Vial 1 Ml IM QMONTH Miralax (Polyethylene Glycol 3350) 17 Gm Powd.pack 1 Packet PO DAILY Terazosin Hcl 2 Mg Capsule 2 Cap PO BID Latanoprost 2.5 Ml Drops 1 Drop OP HS Finasteride 5 Mg Tablet 5 Mg PO HS Cetirizine Hcl 10 Mg Tablet 5 Mg PO Atorvastatin Calcium 80 Mg Tablet 40 Mg PO HS Vitamin D3 (Cholecalciferol (Vitamin D3)) 1,000 Unit Tablet 1,000 Unit PO Allergies Allergies: Coded Allergies: tamsulosin (Verified Allergy, Intermediate, 11/23/16) ROS Review of System 14 pt ros otherwise neg General: YES: Fatigue Respiratory: YES: Shortness of breath, SOB with excertion, Other (sob with conversation) Gastrointestinal: No Nausea, No Vomiting, No Abdominal Pain, No Diarrhea, No Constipation, No Melena, No Hematochezia, No Other Neurological: Yes Gait Disturbance Physical Exam Physical Exam Physical Exam GEN: NAD HEEN: OM moist NECK: No JVD, CVS: S1S2, VICK +, RESP: No Rales, No Rhonchi,no Acc. Muscle Use GI: BS + ve, NO Bruit, Non Tender, Non Distended : No CVA tenderness, cn 2-12 grossly intact General: Alert, Oriented X3, Cooperative HEENT: EOMI Lungs: Normal air movement Heart: murmurs Breasts: Not examined Abdomen: Normal bowel sounds, Soft Extremities: No clubbing, No cyanosis Neuro: Cranial nerves 3-12 NL Psych/Mental Status: Mood NL Vitals Vitals Vital Signs Date Time Temp Pulse Resp B/P (MAP) Pulse Ox O2 Delivery O2 Flow Rate FiO2 10/29/17 10:50 97.5 63 18 151/62 (91) 93 Room Air 97.5 Labs Labs Laboratory Tests Test 10/28/17 19:30 White Blood Count 6.9 x10^3/uL (4.0-11.0) Red Blood Count 3.65 x10^6/uL (4.30-5.70) Hemoglobin 9.6 g/dL (13.0-17.5) Hematocrit 29.8 % (39.0-53.0) Mean Corpuscular Volume 82 fL (79-100) Mean Corpuscular Hemoglobin 26 pg (25-35) Mean Corpuscular Hemoglobin Concent 32 g/dL (31-37) Red Cell Distribution Width 19.8 % (11.5-14.5) Platelet Count 152 x10^3/uL (140-400) Neutrophils (%) (Auto) 67 % (31-73) Lymphocytes (%) (Auto) 19 % (24-48) Monocytes (%) (Auto) 13 % (0-9) Eosinophils (%) (Auto) 1 % (0-3) Basophils (%) (Auto) 1 % (0-3) Neutrophils # (Auto) 4.6 x10^3uL (1.8-7.7) Lymphocytes # (Auto) 1.3 x10^3/uL (1.0-4.8) Monocytes # (Auto) 0.9 x10^3/uL (0.0-1.1) Eosinophils # (Auto) 0.1 x10^3/uL (0.0-0.7) Basophils # (Auto) 0.1 x10^3/uL (0.0-0.2) Sodium Level 137 mmol/L (136-145) Potassium Level 3.6 mmol/L (3.5-5.1) Chloride Level 99 mmol/L (98-107) Carbon Dioxide Level 34 mmol/L (21-32) Anion Gap 4 (6-14) Blood Urea Nitrogen 22 mg/dL (8-26) Creatinine 5.7 mg/dL (0.7-1.3) Estimated GFR (Cockcroft-Gault) 11.7 BUN/Creatinine Ratio 4 (6-20) Glucose Level 96 mg/dL (70-99) Calcium Level 8.9 mg/dL (8.5-10.1) Total Bilirubin 0.9 mg/dL (0.2-1.0) Aspartate Amino Transf (AST/SGOT) 22 U/L (15-37) Alanine Aminotransferase (ALT/SGPT) 8 U/L (16-63) Alkaline Phosphatase 72 U/L (46-116) Total Protein 7.4 g/dL (6.4-8.2) Albumin 2.7 g/dL (3.4-5.0) Albumin/Globulin Ratio 0.6 (1.0-1.7) Laboratory Tests Test 10/28/17 19:30 White Blood Count 6.9 x10^3/uL (4.0-11.0) Red Blood Count 3.65 x10^6/uL (4.30-5.70) Hemoglobin 9.6 g/dL (13.0-17.5) Hematocrit 29.8 % (39.0-53.0) Mean Corpuscular Volume 82 fL (79-100) Mean Corpuscular Hemoglobin 26 pg (25-35) Mean Corpuscular Hemoglobin Concent 32 g/dL (31-37) Red Cell Distribution Width 19.8 % (11.5-14.5) Platelet Count 152 x10^3/uL (140-400) Neutrophils (%) (Auto) 67 % (31-73) Lymphocytes (%) (Auto) 19 % (24-48) Monocytes (%) (Auto) 13 % (0-9) Eosinophils (%) (Auto) 1 % (0-3) Basophils (%) (Auto) 1 % (0-3) Neutrophils # (Auto) 4.6 x10^3uL (1.8-7.7) Lymphocytes # (Auto) 1.3 x10^3/uL (1.0-4.8) Monocytes # (Auto) 0.9 x10^3/uL (0.0-1.1) Eosinophils # (Auto) 0.1 x10^3/uL (0.0-0.7) Basophils # (Auto) 0.1 x10^3/uL (0.0-0.2) Sodium Level 137 mmol/L (136-145) Potassium Level 3.6 mmol/L (3.5-5.1) Chloride Level 99 mmol/L (98-107) Carbon Dioxide Level 34 mmol/L (21-32) Anion Gap 4 (6-14) Blood Urea Nitrogen 22 mg/dL (8-26) Creatinine 5.7 mg/dL (0.7-1.3) Estimated GFR (Cockcroft-Gault) 11.7 BUN/Creatinine Ratio 4 (6-20) Glucose Level 96 mg/dL (70-99) Calcium Level 8.9 mg/dL (8.5-10.1) Total Bilirubin 0.9 mg/dL (0.2-1.0) Aspartate Amino Transf (AST/SGOT) 22 U/L (15-37) Alanine Aminotransferase (ALT/SGPT) 8 U/L (16-63) Alkaline Phosphatase 72 U/L (46-116) Total Protein 7.4 g/dL (6.4-8.2) Albumin 2.7 g/dL (3.4-5.0) Albumin/Globulin Ratio 0.6 (1.0-1.7) VTE Prophylaxis Ordered VTE Prophylaxis Devices: Yes VTE Pharmacological Prophylaxi: Yes Assessment/Plan Assessment/Plan IMPRESSION 1. ESRD on hd 2. generalized weakness 3. HTN 4. HLD 5. Hypothyroidism on replacement 6. BPH 7. Anemia 8. Glaucoma 9. PPM 10. DYSPNEA 11. PROB COPD plan nephrology consult tele cardiology consult echo PULM CONSULT HEPARIN DVT PROPHYLAXIS SENIA GASTON MD Oct 29, 2017 11:14
[2017-10-29] MEDS ORDERED: IV NORMAL SALINE 1000ML BAG 1,000 ML IV PRN ×2 (12:21)
[2017-10-29] MEDS: SEVELAMER CARBONATE 800 MG TABLET. PO SCH ×2 (12:25→17:41)
[2017-10-29] MEDS ORDERED: diphenhydrAMINE 50 MG/ML VIAL IV PRN ×2 (12:30)
[2017-10-29] MEDS ORDERED: ALBUMIN HUMAN 25% 200 ML IV PRN (12:30)
[2017-10-29] MEDS ORDERED: cloNIDine HCL 0.1 MG TABLET PO PRN (12:30)
[2017-10-29] MEDS ORDERED: ACETAMINOPHEN 500 MG TABLET PO PRN (12:30)
[2017-10-29] MEDS ORDERED: LABETALOL 20 MG/4 ML DISP.SYRIN. IVP PRN (12:30)
[2017-10-29] MEDS ORDERED: DIALYSIS PATIENT. MC PRN (12:30)
--- NOTE | 2017-10-29 14:04 | PDOC2 ---
CONSULT Date of Consult Date of Consult DATE: 10/29/17 TIME: 14:04 Identification/Chief Complaint Chief Complaint Generalized weakness Source Source: Chart review, Patient History of Present Illness Reason for Visit: Pt is 77 yo AAM, ESRD on HD since Nov 08. He is a [place], reports went to [place] er for Generalized weakness, they didint find anything and sent him home He went to [facility] , he was told labs stable but transferred to [facility] ? may have some heart issue as per Pt Denies any NVD. No CP/SOB. Has Chr back pain- On meds at home . Has Good RRF Past Medical History Cardiovascular: HTN, Hyperlipidemia, Other Musculoskeletal: Osteoarthritis Renal/: Chronic renal insuff, Benign prostatic enlarg. Endocrine: Diabetes, Hypothyroidism Past Surgical History Past Surgical History: Pacemaker, Appendectomy, Other Family History Family History: Diabetes, Hypertension Social History ALCOHOL: none Drugs: None Lives: with Family Current Medications Current Medications Current Medications Acetaminophen (Tylenol) 650 mg PRN Q6HRS PRN PO FEVER; Start 10/28/17 at 19:30 Morphine Sulfate (Morphine Sulfate) 4 mg PRN Q4HRS PRN IV PAIN; Start 10/28/17 at 19:30 Ondansetron HCl (Zofran) 4 mg PRN Q6HRS PRN IV NAUSEA/VOMITING; Start 10/28/17 at 19:30 Labetalol HCl (Normodyne Iv Push) 20 mg PRN Q4HRS PRN IVP HYPERTENSION, SEE COMMENTS; Start 10/28/17 at 19:30 Latanoprost (Xalatan) 1 drop QHS OU Last administered on 10/28/17at 21:19; Start 10/28/17 at 21:00 Cetirizine HCl (ZyrTEC) 5 mg DAILY PO Last administered on 10/29/17at 10:19; Start 10/29/17 at 11:00 Vitamin D (Vitamin D3) 1,000 unit DAILY PO Last administered on 10/29/17at 10:19 ; Start 10/29/17 at 11:00 Cyanocobalamin (Vitamin B-12) 1,000 mcg QMONTH IM ; Start 11/28/17 at 09:00 Finasteride (Proscar) 5 mg HS PO ; Start 10/29/17 at 21:00 Acetaminophen/ Hydrocodone Bitart (Lortab 5/325) 1 tab PRN Q6HRS PRN PO PAIN Last administered on 10/29/17at 10:18; Start 10/29/17 at 10:00 Levothyroxine Sodium (Synthroid) 224 mcg DAILYAC PO Last administered on at 10:19; Start 10/29/17 at 11:00 Losartan Potassium (Cozaar) 25 mg BID PO Last administered on 10/29/17at 10:20; Start 10/29/17 at 11:00 Ondansetron HCl (Zofran Odt) 4 mg PRN Q6HRS PRN PO NAUSEA/VOMITING; Start 10/29 at 10:00 Sevelamer Carbonate (Renvela) 800 mg TIDWMEALS PO Last administered on at 12:25; Start 10/29/17 at 12:00 Atorvastatin Calcium (Lipitor) 40 mg QHS PO ; Start 10/29/17 at 21:00 Hydralazine HCl (Apresoline) 50 mg TID PO ; Start 10/29/17 at 14:00 Mirtazapine (Remeron) 7.5 mg QHS PO ; Start 10/29/17 at 21:00 Polyethylene Glycol (miraLAX PACKET) 17 gm DAILY PO Last administered on at 10:24; Start 10/29/17 at 11:00 Terazosin HCl (Hytrin) 4 mg BID PO Last administered on 10/29/17at 10:20; Start 10/29/17 at 11:00 Sodium Chloride 1,000 ml @ 1,000 mls/hr Q1H PRN IV hypotension; Start 10/29/17 at 12:21; Stop 10/29/17 at 18:20 Albumin Human 200 ml @ 200 mls/hr 1X PRN PRN IV Hypotension; Start 10/29/17 at 12:30; Stop 10/29/17 at 18:29 Acetaminophen (Tylenol) 500 mg 1X PRN PRN PO MILD PAIN / TEMP; Start 10/29/17 at 12:30; Stop 10/30/17 at 12:29 Diphenhydramine HCl (Benadryl) 25 mg 1X PRN PRN IV ITCHING; Start 10/29/17 at 12:30; Stop 10/30/17 at 12:29 Diphenhydramine HCl (Benadryl) 25 mg 1X PRN PRN IV ITCHING; Start 10/29/17 at 12:30; Stop 10/30/17 at 12:29 Labetalol HCl (Normodyne Iv Push) 10 mg PRN Q1HR PRN IVP SBP > 180; Start 10/29 at 12:30; Stop 10/30/17 at 12:29 Clonidine HCl (Catapres) 0.1 mg 1X PRN PRN PO SBP > 180; Start 10/29/17 at 12: 30; Stop 10/30/17 at 12:29 Sodium Chloride 1,000 ml @ 400 mls/hr Q2H30M PRN IV PATENCY; Start 10/29/17 at 12:21; Stop 10/30/17 at 00:20 Info (PHARMACY MONITORING -- do not chart) 1 each PRN DAILY PRN MC SEE COMMENTS ; Start 10/29/17 at 12:30 Active Scripts Active Ondansetron Odt (Ondansetron) 4 Mg Tab.rapdis 4 Mg PO PRN Q6HRS PRN Hydralazine Hcl 50 Mg Tablet 50 Mg PO TID Reported [place] 5-325 Tablet (Acetaminophen/Hydrocodone Bitart) 1 Each Tablet 1 Tab PO PRN Q6HRS PRN Renvela (Sevelamer Carbonate) 800 Mg Tablet 800 Mg PO TIDWMEALS Praveena-Chon Rx Tablet (Vit B Cmplx 3/Fa/Vit C/Biotin) 1 Each Tablet 1 Each PO Mirtazapine 15 Mg Tablet 7.5 Mg PO QHS Levothyroxine Sodium 112 Mcg Tablet 224 Mcg PO DAILYAC Losartan Potassium 25 Mg Tablet 25 Mg PO BID Cyanocobalamin Injection (Cyanocobalamin (Vitamin B-12)) 1,000 Mcg/1 Ml Vial 1 Ml IM QMONTH Miralax (Polyethylene Glycol 3350) 17 Gm Powd.pack 1 Packet PO DAILY Terazosin Hcl 2 Mg Capsule 2 Cap PO BID Latanoprost 2.5 Ml Drops 1 Drop OP HS Finasteride 5 Mg Tablet 5 Mg PO HS Cetirizine Hcl 10 Mg Tablet 5 Mg PO Atorvastatin Calcium 80 Mg Tablet 40 Mg PO HS Vitamin D3 (Cholecalciferol (Vitamin D3)) 1,000 Unit Tablet 1,000 Unit PO Allergies Allergies: Coded Allergies: tamsulosin (Verified Allergy, Intermediate, 11/23/16) ROS Review of System As per HPI Physical Exam Physical Exam GEN: NAD HEEN: OM moist NECK: No JVD, CVS: S1S2, VICK +, RESP: No Rales, No Rhonchi,no Acc. 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 Laboratory Tests Test 10/28/17 19:30 White Blood Count 6.9 x10^3/uL (4.0-11.0) Red Blood Count 3.65 x10^6/uL (4.30-5.70) Hemoglobin 9.6 g/dL (13.0-17.5) Hematocrit 29.8 % (39.0-53.0) Mean Corpuscular Volume 82 fL (79-100) Mean Corpuscular Hemoglobin 26 pg (25-35) Mean Corpuscular Hemoglobin Concent 32 g/dL (31-37) Red Cell Distribution Width 19.8 % (11.5-14.5) Platelet Count 152 x10^3/uL (140-400) Neutrophils (%) (Auto) 67 % (31-73) Lymphocytes (%) (Auto) 19 % (24-48) Monocytes (%) (Auto) 13 % (0-9) Eosinophils (%) (Auto) 1 % (0-3) Basophils (%) (Auto) 1 % (0-3) Neutrophils # (Auto) 4.6 x10^3uL (1.8-7.7) Lymphocytes # (Auto) 1.3 x10^3/uL (1.0-4.8) Monocytes # (Auto) 0.9 x10^3/uL (0.0-1.1) Eosinophils # (Auto) 0.1 x10^3/uL (0.0-0.7) Basophils # (Auto) 0.1 x10^3/uL (0.0-0.2) Sodium Level 137 mmol/L (136-145) Potassium Level 3.6 mmol/L (3.5-5.1) Chloride Level 99 mmol/L (98-107) Carbon Dioxide Level 34 mmol/L (21-32) Anion Gap 4 (6-14) Blood Urea Nitrogen 22 mg/dL (8-26) Creatinine 5.7 mg/dL (0.7-1.3) Estimated GFR (Cockcroft-Gault) 11.7 BUN/Creatinine Ratio 4 (6-20) Glucose Level 96 mg/dL (70-99) Calcium Level 8.9 mg/dL (8.5-10.1) Total Bilirubin 0.9 mg/dL (0.2-1.0) Aspartate Amino Transf (AST/SGOT) 22 U/L (15-37) Alanine Aminotransferase (ALT/SGPT) 8 U/L (16-63) Alkaline Phosphatase 72 U/L (46-116) Total Protein 7.4 g/dL (6.4-8.2) Albumin 2.7 g/dL (3.4-5.0) Albumin/Globulin Ratio 0.6 (1.0-1.7) Laboratory Tests Test 10/28/17 19:30 White Blood Count 6.9 x10^3/uL (4.0-11.0) Red Blood Count 3.65 x10^6/uL (4.30-5.70) Hemoglobin 9.6 g/dL (13.0-17.5) Hematocrit 29.8 % (39.0-53.0) Mean Corpuscular Volume 82 fL (79-100) Mean Corpuscular Hemoglobin 26 pg (25-35) Mean Corpuscular Hemoglobin Concent 32 g/dL (31-37) Red Cell Distribution Width 19.8 % (11.5-14.5) Platelet Count 152 x10^3/uL (140-400) Neutrophils (%) (Auto) 67 % (31-73) Lymphocytes (%) (Auto) 19 % (24-48) Monocytes (%) (Auto) 13 % (0-9) Eosinophils (%) (Auto) 1 % (0-3) Basophils (%) (Auto) 1 % (0-3) Neutrophils # (Auto) 4.6 x10^3uL (1.8-7.7) Lymphocytes # (Auto) 1.3 x10^3/uL (1.0-4.8) Monocytes # (Auto) 0.9 x10^3/uL (0.0-1.1) Eosinophils # (Auto) 0.1 x10^3/uL (0.0-0.7) Basophils # (Auto) 0.1 x10^3/uL (0.0-0.2) Sodium Level 137 mmol/L (136-145) Potassium Level 3.6 mmol/L (3.5-5.1) Chloride Level 99 mmol/L (98-107) Carbon Dioxide Level 34 mmol/L (21-32) Anion Gap 4 (6-14) Blood Urea Nitrogen 22 mg/dL (8-26) Creatinine 5.7 mg/dL (0.7-1.3) Estimated GFR (Cockcroft-Gault) 11.7 BUN/Creatinine Ratio 4 (6-20) Glucose Level 96 mg/dL (70-99) Calcium Level 8.9 mg/dL (8.5-10.1) Total Bilirubin 0.9 mg/dL (0.2-1.0) Aspartate Amino Transf (AST/SGOT) 22 U/L (15-37) Alanine Aminotransferase (ALT/SGPT) 8 U/L (16-63) Alkaline Phosphatase 72 U/L (46-116) Total Protein 7.4 g/dL (6.4-8.2) Albumin 2.7 g/dL (3.4-5.0) Albumin/Globulin Ratio 0.6 (1.0-1.7) Review All relevant outside records, renal labs, imaging studies, telemetry/EKG's were reviewed. NANCY NAGY MD Oct 29, 2017 14:04
[2017-10-29] MEDS: IPRATRPIUM/ALBUTEROL 0.5/2.5MG 3 ML NEBU. NEB SCH ×2 (17:37→20:51)
[2017-10-29 19:42] VITALS: BP 129/64
[2017-10-29] MEDS: LATANOPROST 0.005% OPHTH SOLUTION 2.5ML BOTTLE. OU SCH (20:04)
[2017-10-29] MEDS: MIRTAZAPINE 7.5 MG TABLET. PO SCH (20:04)
[2017-10-29] MEDS: FOLIC/VIT B COMP W-C (RENAL) TABLET. PO SCH (20:04)
[2017-10-29] MEDS: ATORVASTATIN CALCIUM 40 MG TABLET. PO SCH (20:07)
[2017-10-29] MEDS: FINASTERIDE 5 MG TABLET. PO SCH (20:08)
[2017-10-29] MEDS ORDERED: TIMO10DR5 EACHEYE (20:19)
[2017-10-29 23:02] VITALS: BP 124/57
[2017-10-30 03:43] VITALS: BP 154/68
[2017-10-30 06:55] VITALS: BP_SYST 125; BP_SYST 155; BP_DIAS 69; BP_DIAS 73
[2017-10-30] MEDS: IPRATRPIUM/ALBUTEROL 0.5/2.5MG 3 ML NEBU. NEB SCH ×4 (07:29→19:56)
[2017-10-30] MEDS: TIMOLOL MALEATE EACHEYE SCH (08:00)
[2017-10-30] MEDS: LEVOTHYROXINE 112 MCG TABLET PO SCH (08:06)
[2017-10-30] MEDS: FOLIC/VIT B COMP W-C (RENAL) TABLET. PO SCH (08:39)
[2017-10-30] MEDS: LOSARTAN POTASSIUM 25 MG TABLET. PO SCH ×2 (08:40→21:07)
[2017-10-30] MEDS: POLYETHYLENE GLYCOL 3350 17 GM PACKET. PO SCH (08:40)
[2017-10-30] MEDS: SEVELAMER CARBONATE 800 MG TABLET. PO SCH ×3 (08:42→17:22)
[2017-10-30] MEDS: CHOLECALCIFEROL (VITAMIN D3) 1,000 UNIT TABLET PO SCH (08:42)
[2017-10-30] MEDS: CETIRIZINE HCL 10 MG TABLET. PO SCH (08:42)
[2017-10-30] MEDS: TERAZOSIN 1 MG CAPSULE. PO SCH ×2 (08:42→21:07)
[2017-10-30] MEDS: HYDROcodone/APAP 5/325MG 1 TAB TABLET PO PRN (08:50)
--- NOTE | 2017-10-30 10:10 | RAD ---
CT of the chest without contrast, 10/30/2017: HISTORY: Shortness of breath Noncontrast scans were obtained as requested and compared to a study from 09/17/2012. There is extensive calcific plaquing of the thoracic aorta. Scattered coronary artery calcifications are also present. 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 It currently measures 4.9 cm in width compared to a measurement of 4.3 cm on the 2013 exam. The heart has increased in size. Transvenous pacing leads extend into the heart. There is a trace amount of pericardial fluid. Small mediastinal lymph nodes are seen without evidence of pathologic enlargement. A coarse subcarinal calcification is compatible with old granulomatous disease. A small amount left-sided pleural fluid and a moderate volume of right-sided pleural fluid has developed with mild to moderate associated atelectasis in both lower lobes. A small right perifissural nodule adjacent to the lateral aspect of the minor fissure seen on image 30 of series #2 is unchanged since the previous study. An additional 4-5 mm nodule seen anteriorly in the right upper lobe on image 19 of series #2 also appears unchanged. No significant upper lobe infiltrate or parenchymal mass is evident. Ascites is now evident in the upper abdomen. A left renal cyst is noted. There is subcutaneous edema in the upper abdominal wall compatible with mild anasarca. IMPRESSION: 1. Extensive aortic atherosclerosis with interval enlargement of a fusiform descending thoracic aortic aneurysm. 2. Moderate coronary artery calcifications. 3. Small left pleural effusion and moderate sized right pleural effusion with moderate underlying bilateral lower lobe atelectasis. 4. Stable small right pulmonary nodules. 5. Ascites has developed. PQRS Compliance Statement: One or more of the following individualized dose reduction techniques were utilized for this examination: 1. Automated exposure control 2. Adjustment of the mA and/or kV according to patient size 3. Use of iterative reconstruction technique Electronically signed by: Ben James MD (10/30/2017 10:07 AM) [facility]
[2017-10-30 10:36] VITALS: BP 133/59
--- NOTE | 2017-10-30 11:08 | PDOC2 ---
CARDIAC CONSULT DATE OF CONSULT Date of Consult DATE: 10/30/17 TIME: 10:58 REASON FOR CONSULT Reason for Consult: dyspnea REFERRING PHYSICIAN Referring Physician: Lorenzo SOURCE Source: Chart review HISTORY OF PRESENT ILLNESS HISTORY OF PRESENT ILLNESS 77 year old male with a one to two week history of [place], weakness and tiredness. Presented to [facility] in [place] for bleeding in AV fistula per their records and was transferred to [facility] when he c/o dyspnea. Denies associated chest pain or palpitations, PND, orthopnea or lower extremity edema. Reports weight loss over the last couple of weeks due to nausea and trouble with walking due to leg pain and weakness. Underwent AAA EVAR on 2017 @ [facility]; denies complications and cardiac evaluation prior to procedure. Anemic with Hgb of 9.6. No evidence of CHF on CXR. CTa of chest with 4.9 cm fusiform descending thoracic aortic aneurysm, moderate coronary artery calcifications and a moderate right pleural effusion as well as small right sided pulmonary nodules. Reason for Visit: dyspnea PAST MEDICAL HISTORY Cardiovascular: CHF (chronic systolic), HTN, Hyperlipidemia, Other (SSS with PPM; 4.9 cm descending thoracic aortic aneurysm; previous repair of AAA with EVAR on 10/15/2017) Pulmonary: No pertinent hx CENTRAL NERVOUS SYSTEM: Other GI: Other (pancreatitis) Heme/Onc: Anemia NOS (of chronic disease) Hepatobiliary: No pertinent hx Psych: No pertinent hx Musculoskeletal: Osteoarthritis, Other (chronic back pain ) Infectious disease: No pertinent hx ENT: No pertinent hx, Other (glaucoma) Renal/: Chronic renal failure (ESRD with HD), Benign prostatic enlarg. Endocrine: Diabetes, Hypothyroidism PAST SURGICAL HISTORY Past Surgical History: Pacemaker (Medtronic - 2012 - placed @ [facility]), Appendectomy, Other (AV fistula; AAA EVAR on 10/15/2017 @ [facility]) FAMILY HISTORY Family History: Diabetes, Hypertension SOCIAL HISTORY Smoke: No ALCOHOL: none Drugs: None Lives: with Family CURRENT MEDICATIONS CURRENT MEDICATIONS Current Medications Medications (Trade) Dose Ordered Sig/Juan Antonio Route PRN Reason Start Time Stop Time Status Last Admin Dose Admin Cetirizine HCl (ZyrTEC) 5 mg DAILY PO 10/29/17 11:00 10/30/17 08:42 Vitamin D (Vitamin D3) 1,000 unit DAILY PO 10/29/17 11:00 10/30/17 08:42 Finasteride (Proscar) 5 mg HS PO 10/29/17 21:00 10/29/17 20:08 Levothyroxine Sodium (Synthroid) 224 mcg DAILYAC PO 10/29/17 11:00 10/30/17 08:06 Losartan Potassium (Cozaar) 25 mg BID PO 10/29/17 11:00 10/30/17 08:40 Sevelamer Carbonate (Renvela) 800 mg TIDWMEALS PO 10/29/17 12:00 10/30/17 08:42 Atorvastatin Calcium (Lipitor) 40 mg QHS PO 10/29/17 21:00 10/29/17 20:07 Hydralazine HCl (Apresoline) 50 mg TID PO 10/29/17 14:00 10/30/17 08:41 Mirtazapine (Remeron) 7.5 mg QHS PO 10/29/17 21:00 10/29/17 20:04 Polyethylene Glycol (miraLAX PACKET) 17 gm DAILY PO 10/29/17 11:00 10/30/17 08:40 Terazosin HCl (Hytrin) 4 mg BID PO 10/29/17 11:00 10/30/17 08:42 Albuterol/ Ipratropium (Duoneb) 3 ml RTQID NEB 10/29/17 17:00 10/30/17 07:29 Vitamin B Complex/ Vitamin C (Praveena-Chon) 1 tab DAILY PO 10/29/17 20:00 10/30/17 08:39 ALLERGIES ALLERGIES: Coded Allergies: tamsulosin (Verified Allergy, Intermediate, 11/23/16) ROS General: YES: Fatigue, Malaise PSYCHOLOGICAL ROS: No: Anxiety, Behavioral Disorder, Concentration difficultie , Decreased libido, Depression, Disorientation, Hallucinations, Hostility, Irritablity, Memory difficulties, Mood Swings, Obsessive thoughts, Physical abuse, Sexual abuse, Sleep disturbances, Suicidal ideation, Other Eyes: No Blurry vision, No Decreased vision, No Double vision, No Dry eyes, No Excessive tearing, No Eye Pain, No Itchy Eyes, No Loss of vision, No Photophobia , No Scotomata, No Uses contacts, No Uses glasses, No Other HEENT: No: Heacaches, Visual Changes, Hearing change, Nasal congestion, Nasal discharge, Oral lesions, Sinus pain, Sore Throat, Epistaxis, Sneezing, Snoring, Tinnitus, Vertigo, Vocal changes, Other ALLERGY AND IMMUNOLOGY: No: Hives, Insect Bite Sensitivity, Itchy/Watery Eyes, Nasal Congestion, Post Nasal Drip, Seasonal Allergies, Other Hematological and Lymphatic: No: Bleeding Problems, Blood Clots, Blood Transfusions, Brusing, Night Sweats, Pallor, Swollen Lymph Nodes, Other ENDOCRINE: No: Breast Changes, Galactorrhea, Hair Pattern Changes, Hot Flashes , Malaise/lethargy, Mood Swings, Palpitations, Polydipsia/polyuria, Skin Changes , Temperature Intolerance, Unexpected Weight Changes, Other Breast: No New/Changing Breast Lumps, No Nipple changes, No Nipple discharge, No Other Respiratory: YES: SOB with excertion; No: Cough, Hemoptysis, Orthopnea, Pleuritic Pain, Shortness of breath, Sputum Changes, Stridor, Tachypnea, Wheezing, Other Cardiovascular: No Chest Pain, No Palpitations, No Orthopnea, No Paroxysmal Noc. Dyspnea, No Edema, No Lt Headedness, No Other Gastrointestinal: Yes Nausea; No Vomiting, No Abdominal Pain, No Diarrhea, No Constipation, No Melena, No Hematochezia, No Other Genitourinary: No Dysuria, No Frequency, No Incontinence, No Hematuria, No Retention, No Discharge, No Urgency, No Pain, No Flank Pain, No Other Musculoskeletal: No Gait Disturbance, No Joint Pain, No Joint Stiffness, No Joint Swelling, No Muscle Pain, No Muscular Weakness, No Pain In:, No Swelling In:, No Other Neurological: Yes Gait Disturbance Skin: No Dry Skin, No Eczema, No Hair Changes, No Lumps, No Mole Changes, No Mottling, No Nail Changes, No Pruritus, No Rash, No Skin Lesion Changes, No Other, No Acne PHYSICAL EXAM General: Alert, Oriented X3, Cooperative, No acute distress HEENT: Atraumatic, Mucous membr. moist/pink Lungs: Normal air movement, Other (faint basilar crackles) Heart: Normal S1, Normal S2, Other (1-2/6 VICK LLSB; PPM left pectoral ) Abdomen: Soft Extremities: No edema, Normal pulses Skin: No rashes Neuro: Normal speech Psych/Mental Status: Mental status NL, Mood NL MUSCULOSKELETAL: Osteoarthritic changes both hands VITALS VITALS Vital Signs Date Time Temp Pulse Resp B/P (MAP) Pulse Ox O2 Delivery O2 Flow Rate FiO2 10/30/17 10:36 97.6 64 18 133/59 (83) 98 Room Air 97.6 IMAGES IMAGES CXR: Comparison is made to a study from 11/27/2016. A left-sided transvenous pacemaker remains in place with 2 leads extending into the right heart. The right jugular dialysis catheter has been removed. The heart is mildly enlarged. There is calcific plaquing and tortuosity of the thoracic aorta. The pulmonary vascularity is normal. No pulmonary infiltrate is seen. There is no evidence of pleural fluid. IMPRESSION: 1. Cardiomegaly and aortic atherosclerosis. 2. No acute infiltrates. CT chest Noncontrast scans were obtained as requested and compared to a study from 09/17/2012. There is extensive calcific plaquing of the thoracic aorta. Scattered coronary artery calcifications are also present. 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 It currently measures 4.9 cm in width compared to a measurement of 4.3 cm on the 2013 exam. The heart has increased in size. Transvenous pacing leads extend into the heart. There is a trace amount of pericardial fluid. Small mediastinal lymph nodes are seen without evidence of pathologic enlargement. A coarse subcarinal calcification is compatible with old granulomatous disease. A small amount left-sided pleural fluid and a moderate volume of right-sided pleural fluid has developed with mild to moderate associated atelectasis in both lower lobes. A small right perifissural nodule adjacent to the lateral aspect of the minor fissure seen on image 30 of series #2 is unchanged since the previous study. An additional 4-5 mm nodule seen anteriorly in the right upper lobe on image 19 of series #2 also appears unchanged. No significant upper lobe infiltrate or parenchymal mass is evident. Ascites is now evident in the upper abdomen. A left renal cyst is noted. There is subcutaneous edema in the upper abdominal wall compatible with mild anasarca. IMPRESSION: 1. Extensive aortic atherosclerosis with interval enlargement of a fusiform descending thoracic aortic aneurysm. 2. Moderate coronary artery calcifications. 3. Small left pleural effusion and moderate sized right pleural effusion with moderate underlying bilateral lower lobe atelectasis. 4. Stable small right pulmonary nodules. 5. Ascites has developed. EKG EKG none for review ECHOCARDIOGRAM ECHOCARDIOGRAM 11/26/2016: TTE: Left ventricle systolic function is normal. The Ejection Fraction is 50-55%. There is grossly normal LV segmental wall motion. Not well visualized. Doppler and Color Flow revealed mild tricuspid regurgitation. The PA pressure was estimated at 39 mmHg. ASSESSMENT/PLAN ASSESSMENT/PLAN 1. dyspnea --CXR without CHF; CT scan with right pleural effusion; no BNP results but would likely be elevated in setting of Cr of 5.7 --likely multifactorial in etiology: anemia, ESRD, right pleural effusion --echo pending to re-evaluate LVEF; was WNL in 2017; have also requested records from recent surgical procedure @ [facility] - ? pre-op evaluation --interrogate PPM to determine if dysrhythmia associated with symptoms 2. AAA; S/P EVAR --done 10/15/2017 at outside facility --records requested 3. ESRD with HD --per nephrology 4. SSS with prior PPM implantation --Medtronic; awaiting interrogation --place on telemetry 5. Hypertension --continue oral meds KRUPA NASH APRN Oct 30, 2017 11:08
--- NOTE | 2017-10-30 11:08 | CONS ---
DATE OF CONSULTATION: ATTENDING PHYSICIAN: Dr. Ventura. REASON FOR CONSULTATION: Dyspnea, pleural effusion. HISTORY OF PRESENT ILLNESS: The patient is a 77-year-old male who has history of end-stage renal disease, on hemodialysis. He presented to [facility] with generalized weakness. He said he also had shortness of breath with exertion. The patient has been followed at [facility]. I have reviewed old echoes with an EF of 50%-51% and a pulmonary artery systolic pressure of 57. The patient had thoracentesis in 2013 on the left side in the past. He denies any cough, no fever, no chills, no chest pains. No leg edema. No history of deep vein thrombosis or pulmonary embolism and no significant tobacco history. PAST MEDICAL HISTORY: History of hypertension; hyperlipidemia; end-stage renal disease, on hemodialysis; BPH; diabetes; and hypothyroidism. PAST SURGICAL HISTORY: Pacemaker, appendectomy. FAMILY HISTORY: Hypertension and diabetes. SOCIAL HISTORY: Nonsmoker, nonalcoholic. REVIEW OF SYSTEMS: Twelve-point system obtained. Pertinent positives discussed in my history of present illness, otherwise noncontributory. All systems that were negative were reviewed as well. ALLERGIES: TAMSULOSIN. MEDICATIONS: Reviewed, as listed in the MRAD. PHYSICAL EXAMINATION: VITAL SIGNS: Reviewed, pulse ox 98% on room air. HEENT: Sclerae nonicteric. NECK: Supple. LUNGS: With diminished breath sounds at the bases. CARDIOVASCULAR: Regular rate. ABDOMEN: Soft. EXTREMITIES: No pitting edema. LABORATORY DATA: Reviewed. White cell count 6.9, hemoglobin 9.6, platelets are 152. BUN 22, creatinine 5.7. IMPRESSION: 1. Dyspnea secondary to development of moderate right-sided pleural effusion and small left pleural effusion. 2. Bilateral pleural effusions, likely related to end-stage renal disease/abefy-dv-jureedu diastolic heart failure. 3. End-stage renal disease. 4. No significant history of tobacco use. 5. Tiny nodules seen in the right lung, which is 4-5 mm in size and this is a patient who has never been a smoker, followup CT in 6 months would be reasonable. 6. Descending thoracic aortic aneurysm which is enlarging. RECOMMENDATIONS: 1. From a pulmonary standpoint, although he is asymptomatic, but he would benefit from right-sided thoracentesis. Discussed with the patient and the and they both agreed to pursue with it. 2. Follow up Thoracic Surgery's recommendation regarding aneurysm. 3. Ultrafiltration with hemodialysis. 4. Follow up on CT regarding the nodules in 6-8 months. Discussed with RN. BRANDON HARMAN MD DR: JOSÉ MIGUEL/zabrina JOB#: [id number] / [id number]
--- NOTE | 2017-10-30 11:21 | PDOC ---
PROGRESS NOTES Chief Complaint Chief Complaint 1. ESRD on hd MWF 2. generalized weakness 3. HTN 4. HLD 5. Hypothyroidism on replacement 6. BPH 7. Anemia 8. Glaucoma 9. PPM 10. DYSPNEA 11. PROB COPD History of Present Illness History of Present Illness Still S OA Pulmonary planning on thoracentesis? Also for echocardiogram CAT scan I have personally reviewed: IMPRESSION: 1. Extensive aortic atherosclerosis with interval enlargement of a fusiform descending thoracic aortic aneurysm. 2. Moderate coronary artery calcifications. 3. Small left pleural effusion and moderate sized right pleural effusion with moderate underlying bilateral lower lobe atelectasis. 4. Stable small right pulmonary nodules. 5. Ascites has developed. HAs a right AV fistula Dialysis Thursday schedule PLAN: HD Thursday Nothing by mouth in case thoracentesis today Daily weights I and O's Labs tomorrow PT OT I did touch on rehabilitation, he is hesitant for now Vitals Vitals Vital Signs Date Time Temp Pulse Resp B/P (MAP) Pulse Ox O2 Delivery O2 Flow Rate FiO2 10/30/17 10:36 97.6 64 18 133/59 (83) 98 Room Air 97.6 Physical Exam General: Alert, Oriented X3, Cooperative Heart: Regular rate, Normal S1, Normal S2 Lungs: Other (decrease breath sounds bases) Abdomen: Normal bowel sounds, Soft Extremities: No clubbing, No cyanosis Review of Systems Review of Systems SOA, no chest pain, no abdominal pain, no fever, no psych issues the rest of 14 point systems reviewed negative Comment Review of Relevant I have reviewed the following items theresa (where applicable) has been applied. Labs Laboratory Tests Test 10/28/17 19:30 White Blood Count 6.9 x10^3/uL (4.0-11.0) Red Blood Count 3.65 x10^6/uL (4.30-5.70) Hemoglobin 9.6 g/dL (13.0-17.5) Hematocrit 29.8 % (39.0-53.0) Mean Corpuscular Volume 82 fL (79-100) Mean Corpuscular Hemoglobin 26 pg (25-35) Mean Corpuscular Hemoglobin Concent 32 g/dL (31-37) Red Cell Distribution Width 19.8 % (11.5-14.5) Platelet Count 152 x10^3/uL (140-400) Neutrophils (%) (Auto) 67 % (31-73) Lymphocytes (%) (Auto) 19 % (24-48) Monocytes (%) (Auto) 13 % (0-9) Eosinophils (%) (Auto) 1 % (0-3) Basophils (%) (Auto) 1 % (0-3) Neutrophils # (Auto) 4.6 x10^3uL (1.8-7.7) Lymphocytes # (Auto) 1.3 x10^3/uL (1.0-4.8) Monocytes # (Auto) 0.9 x10^3/uL (0.0-1.1) Eosinophils # (Auto) 0.1 x10^3/uL (0.0-0.7) Basophils # (Auto) 0.1 x10^3/uL (0.0-0.2) Sodium Level 137 mmol/L (136-145) Potassium Level 3.6 mmol/L (3.5-5.1) Chloride Level 99 mmol/L (98-107) Carbon Dioxide Level 34 mmol/L (21-32) Anion Gap 4 (6-14) Blood Urea Nitrogen 22 mg/dL (8-26) Creatinine 5.7 mg/dL (0.7-1.3) Estimated GFR (Cockcroft-Gault) 11.7 BUN/Creatinine Ratio 4 (6-20) Glucose Level 96 mg/dL (70-99) Calcium Level 8.9 mg/dL (8.5-10.1) Total Bilirubin 0.9 mg/dL (0.2-1.0) Aspartate Amino Transf (AST/SGOT) 22 U/L (15-37) Alanine Aminotransferase (ALT/SGPT) 8 U/L (16-63) Alkaline Phosphatase 72 U/L (46-116) Total Protein 7.4 g/dL (6.4-8.2) Albumin 2.7 g/dL (3.4-5.0) Albumin/Globulin Ratio 0.6 (1.0-1.7) Medications Current Medications Acetaminophen (Tylenol) 650 mg PRN Q6HRS PRN PO FEVER; Start 10/28/17 at 19:30 Morphine Sulfate (Morphine Sulfate) 4 mg PRN Q4HRS PRN IV PAIN; Start 10/28/17 at 19:30 Ondansetron HCl (Zofran) 4 mg PRN Q6HRS PRN IV NAUSEA/VOMITING; Start 10/28/17 at 19:30 Labetalol HCl (Normodyne Iv Push) 20 mg PRN Q4HRS PRN IVP HYPERTENSION, SEE COMMENTS; Start 10/28/17 at 19:30 Latanoprost (Xalatan) 1 drop QHS OU Last administered on 10/29/17 20:04; Start 10/28/17 at 21:00 Cetirizine HCl (ZyrTEC) 5 mg DAILY PO Last administered on 10/30/17 08:42; Start 10/29/17 at 11:00 Vitamin D (Vitamin D3) 1,000 unit DAILY PO Last administered on 10/30/17 08:42 ; Start 10/29/17 at 11:00 Cyanocobalamin (Vitamin B-12) 1,000 mcg QMONTH IM ; Start 11/28/17 at 09:00 Finasteride (Proscar) 5 mg HS PO Last administered on 10/29/17 20:08; Start at 21:00 Acetaminophen/ Hydrocodone Bitart (Lortab 5/325) 1 tab PRN Q6HRS PRN PO PAIN Last administered on 10/30/17 08:50; Start 10/29/17 at 10:00 Levothyroxine Sodium (Synthroid) 224 mcg DAILYAC PO Last administered on 08:06; Start 10/29/17 at 11:00 Losartan Potassium (Cozaar) 25 mg BID PO Last administered on 10/30/17 08:40; Start 10/29/17 at 11:00 Ondansetron HCl (Zofran Odt) 4 mg PRN Q6HRS PRN PO NAUSEA/VOMITING; Start 10/29 at 10:00 Sevelamer Carbonate (Renvela) 800 mg TIDWMEALS PO Last administered on 08:42; Start 10/29/17 at 12:00 Atorvastatin Calcium (Lipitor) 40 mg QHS PO Last administered on 10/29/17 20: 07; Start 10/29/17 at 21:00 Hydralazine HCl (Apresoline) 50 mg TID PO Last administered on 10/30/17 08:41 ; Start 10/29/17 at 14:00 Mirtazapine (Remeron) 7.5 mg QHS PO Last administered on 10/29/17at 20:04; Start 10/29/17 at 21:00 Polyethylene Glycol (miraLAX PACKET) 17 gm DAILY PO Last administered on at 08:40; Start 10/29/17 at 11:00 Terazosin HCl (Hytrin) 4 mg BID PO Last administered on 10/30/17at 08:42; Start 10/29/17 at 11:00 Sodium Chloride 1,000 ml @ 1,000 mls/hr Q1H PRN IV hypotension; Start 10/29/17 at 12:21; Stop 10/29/17 at 18:20; Status DC Albumin Human 200 ml @ 200 mls/hr 1X PRN PRN IV Hypotension; Start 10/29/17 at 12:30; Stop 10/29/17 at 18:29; Status DC Acetaminophen (Tylenol) 500 mg 1X PRN PRN PO MILD PAIN / TEMP; Start 10/29/17 at 12:30; Stop 10/30/17 at 12:29 Diphenhydramine HCl (Benadryl) 25 mg 1X PRN PRN IV ITCHING; Start 10/29/17 at 12:30; Stop 10/30/17 at 12:29 Diphenhydramine HCl (Benadryl) 25 mg 1X PRN PRN IV ITCHING; Start 10/29/17 at 12:30; Stop 10/30/17 at 12:29 Labetalol HCl (Normodyne Iv Push) 10 mg PRN Q1HR PRN IVP SBP > 180; Start 10/29 at 12:30; Stop 10/29/17 at 19:53; Status DC Clonidine HCl (Catapres) 0.1 mg 1X PRN PRN PO SBP > 180; Start 10/29/17 at 12: 30; Stop 10/30/17 at 12:29 Sodium Chloride 1,000 ml @ 400 mls/hr Q2H30M PRN IV PATENCY; Start 10/29/17 at 12:21; Stop 10/30/17 at 00:20; Status DC Info (PHARMACY MONITORING -- do not chart) 1 each PRN DAILY PRN MC SEE COMMENTS ; Start 10/29/17 at 12:30 Albuterol/ Ipratropium (Duoneb) 3 ml RTQID NEB Last administered on 10/30/17at 07:29; Start 10/29/17 at 17:00 Heparin Sodium (Porcine) (Heparin Sq) 5,000 unit BID SQ ; Start 10/30/17 at 21: 00 Vitamin B Complex/ Vitamin C (Praveena-Chon) 1 tab DAILY PO Last administered on at 08:39; Start 10/29/17 at 20:00 Non-Formulary Medication (Timolol Maleate (Timoptic)) 1 drop DAILY08 EACHEYE ; Start 10/30/17 at 08:00; Status UNV Active Scripts Active Ondansetron Odt (Ondansetron) 4 Mg Tab.rapdis 4 Mg PO PRN Q6HRS PRN Hydralazine Hcl 50 Mg Tablet 50 Mg PO TID Reported Timoptic (Timolol Maleate) 10 Ml Drops 1 Drop EACHEYE DAILY08 [place] 5-325 Tablet (Acetaminophen/Hydrocodone Bitart) 1 Each Tablet 1 Tab PO PRN Q6HRS PRN Renvela (Sevelamer Carbonate) 800 Mg Tablet 800 Mg PO TIDWMEALS Praveena-Chon Rx Tablet (Vit B Cmplx 3/Fa/Vit C/Biotin) 1 Each Tablet 1 Each PO Mirtazapine 15 Mg Tablet 7.5 Mg PO QHS Levothyroxine Sodium 112 Mcg Tablet 224 Mcg PO DAILYAC Losartan Potassium 25 Mg Tablet 25 Mg PO BID Cyanocobalamin Injection (Cyanocobalamin (Vitamin B-12)) 1,000 Mcg/1 Ml Vial 1 Ml IM QMONTH Miralax (Polyethylene Glycol 3350) 17 Gm Powd.pack 1 Packet PO DAILY Terazosin Hcl 2 Mg Capsule 2 Cap PO BID Latanoprost 2.5 Ml Drops 1 Drop OP HS Finasteride 5 Mg Tablet 5 Mg PO HS Cetirizine Hcl 10 Mg Tablet 5 Mg PO Atorvastatin Calcium 80 Mg Tablet 40 Mg PO HS Vitamin D3 (Cholecalciferol (Vitamin D3)) 1,000 Unit Tablet 1,000 Unit PO Vitals/I & O Vital Sign - Last 24 Hours 10/29/17 10/29/17 10/29/17 10/29/17 17:38 19:14 19:42 20:00 Temp 98.0 98.0 Pulse 67 Resp 18 B/P (MAP) 129/64 (85) Pulse Ox 99 97 O2 Delivery Room Air Room Air Room Air Room Air 10/29/17 10/29/17 10/29/17 10/29/17 20:06 20:07 20:08 20:35 Pulse 67 67 67 B/P (MAP) 129/64 129/64 129/64 Pulse Ox 98 O2 Delivery Room Air 10/29/17 10/30/17 10/30/17 10/30/17 23:02 03:43 06:55 07:31 Temp 98.4 98.0 98.1 98.4 98.0 98.1 Pulse 59 63 60 Resp 18 16 18 B/P (MAP) 124/57 (79) 154/68 (96) 155/69 (97) Pulse Ox 97 100 98 98 O2 Delivery Room Air Room Air Room Air Room Air 10/30/17 10/30/17 10/30/17 10/30/17 08:00 08:40 08:41 08:42 Pulse 60 60 60 B/P (MAP) 155/69 155/69 155/69 O2 Delivery Room Air 10/30/17 10/30/17 10/30/17 08:50 09:50 10:36 Temp 97.6 97.6 Pulse 64 Resp 18 B/P (MAP) 133/59 (83) Pulse Ox 98 98 98 O2 Delivery Room Air Room Air Room Air Intake and Output 10/29/17 10/29/17 10/30/17 15:00 23:00 07:00 Intake Total 400 ml 320 ml Output Total 0 ml 2 ml Balance 400 ml 0 ml 318 ml ABDIRASHID CLAY MD Oct 30, 2017 11:21
--- NOTE | 2017-10-30 11:31 | CARD ---
MR#: [id number] Date of Study: 10/30/2017 Ordering Physician: SENIA GASTON, Referring Physician: Juan Jose MOORE: MAYI Stratton APPROVED REPORT EXAM: Two-dimensional and M-mode echocardiogram with Doppler and color Doppler. Other Information Quality : GoodHR: 61bpm INDICATION Congestive Heart Failure 2D DIMENSIONS RVDd3.6 (2.9-3.5cm)Left Atrium(2D)4.3 (1.6-4.0cm) IVSd1.3 (0.7-1.1cm)Aortic Root(2D)3.7 (2.0-3.7cm) LVDd5.0 (3.9-5.9cm)LVOT Diameter2.2 (1.8-2.4cm) PWd1.2 (0.7-1.1cm)IVSs1.8 (0.8-1.2cm) LVDs2.6 (2.5-4.0cm)FS (%) 48.2 % PWs1.9 (0.8-1.2cm)SV94.3 ml LVEF(%)79.3 (>50%) Aortic Valve AoV Peak Edil.239.6cm/sAoV VTI49.4cm AO Peak GR.23.0mmHgLVOT Peak Edil.122.4cm/s LVOT VTI 24.57cmAO Mean GR.13mmHg ELIZABETH (VMAX)1.27he3CNN (VTI)1.97cm2 AI P 1/2 Wdly903gz Mitral Valve MV E Julvujip63.5cm/sMV E Peak Gr.62mmHg MV DECEL ETIT771ojZA A Rwjcdigz02.2cm/s MV ZYO13lkP/A Ratio0.9 MVA (PHT)3.52cm2 TDI E/Lateral E'12.5E/Medial E'8.4 Pulmonary Valve PV Peak Trtrxdwy87.1cm/sPV Peak Grad.4mmHg Tricuspid Valve TR P. Hcroifkq519ji/sRAP ESPWXSVH3jtXt TR Peak Gr.60njHmJWQP99chHa Pulmonary Vein S1 Lmtacnni14.2cm/sD2 Dfgerqcy98.1cm/s LEFT VENTRICLE The left ventricle is normal size. There is mild concentric left ventricular hypertrophy. The left ve ntricular systolic function is normal. The Ejection Fraction is 55-60%. Apical motion consistent with pacemaker activation. Transmitral Doppler flow pattern is Grade I-abnormal relaxation pattern. RIGHT VENTRICLE The right ventricle is normal size. The right ventricular systolic function is normal. There is a pac emaker lead in the right ventricle. ATRIA The left atrium is mildly dilated. A pacemaker is seen in the right atrium consistent with history. T he interatrial septum is intact with no evidence for an atrial septal defect or patent foramen ovale as noted on 2-D or Doppler imaging. AORTIC VALVE The aortic valve is moderately to severely thickened. Doppler and Color Flow revealed mild to moderat e aortic regurgitation. There is no significant aortic valvular stenosis. There is no aortic valvular vegetation. MITRAL VALVE The mitral valve is thickened but opens well. There is no evidence of mitral valve prolapse. There is no mitral valve stenosis. Doppler and Color-flow revealed mild mitral regurgitation. TRICUSPID VALVE The tricuspid valve leaflets are thickened , but open well. Doppler and Color Flow revealed moderate tricuspid regurgitation. The PA pressure was estimated at 16 mmHg. There is no tricuspid valve prolap se or vegetation. There is no tricuspid valve stenosis. PULMONIC VALVE The pulmonary valve is normal in structure and function. Doppler and Color Flow revealed no pulmonic valvular regurgitation. There is no pulmonic valvular stenosis. GREAT VESSELS The aortic root is normal in size. The IVC is normal in size and collapses >50% with inspiration. PERICARDIAL EFFUSION There is no pleural effusion. There is no evidence of significant pericardial effusion. Critical Notification Critical Value: No <Conclusion> The left ventricular systolic function is normal. The Ejection Fraction is 55-60%. A pacemaker is seen in the right atrium and right ventricle consistent with history. Mild to moderate aortic regurgitation. Mild mitral regurgitation. Moderate tricuspid regurgitation. There is no evidence of significant pericardial effusion. Signed by : Lenny Trevizo, Electronically Approved : 10/30/2017 11:31:10
[2017-10-30 11:33] LABS: PROTHROMBIN TIME PATIENT 17.3 SEC (11.7-14.0)
--- NOTE | 2017-10-30 13:20 | EKG ---
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
[2017-10-30 14:18] VITALS: BP 157/70
--- NOTE | 2017-10-30 14:41 | PDOC ---
SUBJECTIVE ROS No new concerns OBJECTIVE Vital Signs Vital Signs Date Time Temp Pulse Resp B/P (MAP) Pulse Ox O2 Delivery O2 Flow Rate FiO2 10/30/17 14:18 97.5 68 17 157/70 (99) 99 Room Air 97.5 I & 0 Intake and Output 10/30/17 07:00 Intake Total 720 ml Output Total 2 ml Balance 718 ml Intake Oral 720 ml Output Urine Total 2 ml PHYSICAL EXAM Physical Exam GEN: NAD HEEN: OM moist NECK: No JVD, CVS: S1S2, VICK +, RESP: No Rales, No Rhonchi,no Acc. Muscle Use GI: BS + ve, NO Bruit, Non Tender, Non Distended : No CVA tenderness, No Suprapubic Tenderness Skin No rash Neuro ao x 3 DIAGNOSIS/ASSESSMENT Assessment & Plan ESRD - On HD TTS at [facility] Has [facility] Dialysis tomorrow as per his schedule Dyspnea CT scan right pleural effusion; Cardiology and Pulm following AAA; S/P EVAR done 10/15/2017 [facility] with prior PPM implantation COMMENT/RELEVANT DATA Meds Current Medications Medications (Trade) Dose Ordered Sig/Juan Antonio Start Time Stop Time Status Last Admin Dose Admin Acetaminophen (Tylenol) 500 mg 1X PRN PRN 10/29/17 12:30 10/30/17 12:29 DC Acetaminophen/ Hydrocodone Bitart (Lortab 5/325) 1 tab PRN Q6HRS PRN 10/29/17 10:00 10/30/17 08:50 1 TAB Albumin Human 200 ml @ 200 mls/hr 1X PRN PRN 10/29/17 12:30 10/29/17 18:29 DC Albuterol/ Ipratropium (Duoneb) 3 ml RTQID 10/29/17 17:00 10/30/17 11:26 3 ML Atorvastatin Calcium (Lipitor) 40 mg QHS 10/29/17 21:00 10/29/17 20:07 40 MG Cetirizine HCl (ZyrTEC) 5 mg DAILY 10/29/17 11:00 10/30/17 08:42 5 MG Clonidine HCl (Catapres) 0.1 mg 1X PRN PRN 10/29/17 12:30 10/30/17 12:29 DC Cyanocobalamin (Vitamin B-12) 1,000 mcg QMONTH 11/28/17 09:00 Diphenhydramine HCl (Benadryl) 25 mg 1X PRN PRN 10/29/17 12:30 10/30/17 12:29 DC Finasteride (Proscar) 5 mg HS 10/29/17 21:00 10/29/17 20:08 5 MG Heparin Sodium (Porcine) (Heparin Sq) 5,000 unit BID 10/30/17 21:00 Hydralazine HCl (Apresoline) 50 mg TID 10/29/17 14:00 10/30/17 08:41 50 MG Info (PHARMACY MONITORING -- do not chart) 1 each PRN DAILY PRN 10/29/17 12:30 Labetalol HCl (Normodyne Iv Push) 10 mg PRN Q1HR PRN 10/29/17 12:30 10/29/17 19:53 DC Latanoprost (Xalatan) 1 drop QHS 10/28/17 21:00 10/29/17 20:04 1 DROP Levothyroxine Sodium (Synthroid) 224 mcg DAILYAC 10/29/17 11:00 10/30/17 08:06 224 MCG Losartan Potassium (Cozaar) 25 mg BID 10/29/17 11:00 10/30/17 08:40 25 MG Mirtazapine (Remeron) 7.5 mg QHS 10/29/17 21:00 10/29/17 20:04 7.5 MG Morphine Sulfate (Morphine Sulfate) 4 mg PRN Q4HRS PRN 10/28/17 19:30 Non-Formulary Medication (Timolol Maleate (Timoptic)) 1 drop DAILY08 10/30/17 08:00 UNV Ondansetron HCl (Zofran Odt) 4 mg PRN Q6HRS PRN 10/29/17 10:00 Ondansetron HCl (Zofran) 4 mg PRN Q6HRS PRN 10/28/17 19:30 Polyethylene Glycol (miraLAX PACKET) 17 gm DAILY 10/29/17 11:00 10/30/17 08:40 17 GM Sevelamer Carbonate (Renvela) 800 mg TIDWMEALS 10/29/17 12:00 10/30/17 08:42 800 MG Sodium Chloride 1,000 ml @ 400 mls/hr Q2H30M PRN 8/23/18 12:21 10/30/17 00:20 DC Terazosin HCl (Hytrin) 4 mg BID 10/29/17 11:00 10/30/17 08:42 4 MG Vitamin B Complex/ Vitamin C (Praveena-Chon) 1 tab DAILY 10/29/17 20:00 10/30/17 08:39 1 TAB Vitamin D (Vitamin D3) 1,000 unit DAILY 10/29/17 11:00 10/30/17 08:42 1,000 UNIT Lab Laboratory Tests Test 10/30/17 11:10 Prothrombin Time 17.3 SEC (11.7-14.0) Prothromb Time International Ratio 1.5 (0.8-1.1) Activated Partial Thromboplast Time 39 SEC (24-38) Results All relevant outside records, renal labs, imaging studies, telemetry/EKG's were reviewed. NANCY NAGY MD Oct 30, 2017 14:41
[2017-10-30] MEDS: ACETAMINOPHEN 325 MG TABLET. PO PRN (17:24)
[2017-10-30 19:00] VITALS: BP 114/48
[2017-10-30] MEDS: ATORVASTATIN CALCIUM 40 MG TABLET. PO SCH (21:07)
[2017-10-30] MEDS: MIRTAZAPINE 7.5 MG TABLET. PO SCH (21:07)
[2017-10-30] MEDS: FINASTERIDE 5 MG TABLET. PO SCH (21:07)
[2017-10-30] MEDS: LATANOPROST 0.005% OPHTH SOLUTION 2.5ML BOTTLE. OU SCH (21:08)
[2017-10-30] MEDS: HEPARIN PF for SUB-Q USE 5,000 UNIT/0.5 ML VIAL. SQ SCH (21:12)
[2017-10-30 22:40] VITALS: BP 109/46
[2017-10-31] MEDS ORDERED: IPRATRPIUM/ALBUTEROL 0.5/2.5MG 3 ML NEBU. NEB PRN (02:30)
[2017-10-31] MEDS: HYDROcodone/APAP 5/325MG 1 TAB TABLET PO PRN ×3 (02:37→19:47)
[2017-10-31 02:49] VITALS: BP 131/62
[2017-10-31] MEDS ORDERED: ALBUTEROL SULFATE 2.5 MG/3 ML NEBU. NEB PRN (03:03)
[2017-10-31 05:57] LABS: CALCIUM 8.7 mg/dL (8.5-10.1); CHOLESTEROL/HDL RATIO 1.9; CREATININE 5.9 mg/dL (0.7-1.3); GFR 11.2; POTASSIUM 4.2 mmol/L (3.5-5.1)
[2017-10-31] MEDS: IPRATRPIUM/ALBUTEROL 0.5/2.5MG 3 ML NEBU. NEB SCH ×4 (06:57→20:18)
[2017-10-31 07:00] VITALS: BP 119/54
[2017-10-31] MEDS: TIMOLOL MALEATE EACHEYE SCH (07:19)
[2017-10-31] MEDS: SEVELAMER CARBONATE 800 MG TABLET. PO SCH ×4 (07:32→17:28)
[2017-10-31] MEDS: LOSARTAN POTASSIUM 25 MG TABLET. PO SCH ×2 (07:32→19:46)
[2017-10-31] MEDS: TERAZOSIN 1 MG CAPSULE. PO SCH ×2 (07:32→19:45)
[2017-10-31] MEDS: CETIRIZINE HCL 10 MG TABLET. PO SCH (08:25)
[2017-10-31] MEDS: CHOLECALCIFEROL (VITAMIN D3) 1,000 UNIT TABLET PO SCH (08:25)
[2017-10-31] MEDS: FOLIC/VIT B COMP W-C (RENAL) TABLET. PO SCH (08:25)
[2017-10-31] MEDS: LEVOTHYROXINE 112 MCG TABLET PO SCH (08:25)
[2017-10-31] MEDS ORDERED: DIALYSIS PATIENT. MC PRN ×2 (08:30)
[2017-10-31] MEDS ORDERED: IV NORMAL SALINE 1000ML BAG 1,000 ML IV PRN ×2 (08:30)
[2017-10-31] MEDS: POLYETHYLENE GLYCOL 3350 17 GM PACKET. PO SCH (08:32)
[2017-10-31] MEDS: HEPARIN PF for SUB-Q USE 5,000 UNIT/0.5 ML VIAL. SQ SCH ×2 (08:32→19:50)
--- NOTE | 2017-10-31 09:04 | PDOC ---
CARDIOLOGY PROGRESS NOTE SUBJECTIVE: No acute events. Reports continued dyspnea with minimal activities. No chest pain. OBJECTIVE: Vital SIgns: Vital Signs Date Time Temp Pulse Resp B/P (MAP) Pulse Ox O2 Delivery O2 Flow Rate FiO2 10/31/17 07:00 98.1 65 20 119/54 (75) 96 Room Air 98.1 Objective: Gen: A/o x 3. NAD CVS; RRR, +AI, TR murmurs, moderate. Neck veins flat. PULM: Decreased breath sounds lung bases. ABd: Soft, No clear ascites noted EXT: No edema. 2+ femoral pulses. NEURO: Proximal muscle weakness. CURRENT MEDICATIONS: Hydralazine, Losartan, Atorvastatin. DIAGNOSTIC TESTING: Labs reviewed. ASSESSMENT: 1. Dyspnea: DDx is broad but likely multifactorial from debility, anemia, ESRD, pleural effusions with component of acute on chronic diastolic HF 2. PAD s/p EVAR per patient. 3. HTN - controlled 4. ESRD 5. Dyslipidemia 6. SSS s/p dual chamber medtronic pacer - interrogation wnl. PLAN: 1. Agree with thoracentesis per Dr. Amaya 2. Fluid removal per nephrology 3. It is unclear if his reason for using a walker is due to his back/pain issues or related to his dyspnea. Await thoracentesis and HD and if still dyspneic tomorrow, may ultimately benefit from right and left heart cath but will await records for any ischemic eval done at [facility]. Thanks. Will follow. BING GUSTAFSON MD Oct 31, 2017 09:04
[2017-10-31] MEDS: ACETAMINOPHEN 325 MG TABLET. PO PRN (09:48)
--- NOTE | 2017-10-31 10:33 | PDOC ---
PROGRESS NOTES Chief Complaint Chief Complaint 1. ESRD on hd MWF 2. generalized weakness 3. HTN 4. HLD 5. Hypothyroidism on replacement 6. BPH 7. Anemia 8. Glaucoma 9. PPM 10. DYSPNEA 11. PROB COPD History of Present Illness History of Present Illness Minimal fluid to tap hence no thoracentesis done yesterday Some SOA but otherwise doing fine Now getting dialysis, he does get fluid off sometimes during HD PT OT has still yet to see Plan: Dialysis usual days are Thursday, might need extra days pending fluid status There is new ascites on CAT scan, but abd not distended Awaiting PT OT Supportive meds Vitals Vitals Vital Signs Date Time Temp Pulse Resp B/P (MAP) Pulse Ox O2 Delivery O2 Flow Rate FiO2 10/31/17 08:00 Room Air 10/31/17 07:00 98.1 65 20 119/54 (75) 96 98.1 Physical Exam General: Alert, Oriented X3, Cooperative, No acute distress Heart: Normal S1, Normal S2, Other (1-2/6 VICK LLSB; PPM left pectoral ) Lungs: Other (decrease breath sounds bases) Abdomen: Soft Extremities: No edema, Normal pulses Skin: No rashes Labs LABS Laboratory Tests Test 10/30/17 11:10 10/31/17 04:40 Prothrombin Time 17.3 SEC (11.7-14.0) Prothromb Time International Ratio 1.5 (0.8-1.1) Activated Partial Thromboplast Time 39 SEC (24-38) Sodium Level 137 mmol/L (136-145) Potassium Level 4.2 mmol/L (3.5-5.1) Chloride Level 100 mmol/L (98-107) Carbon Dioxide Level 30 mmol/L (21-32) Anion Gap 7 (6-14) Blood Urea Nitrogen 22 mg/dL (8-26) Creatinine 5.9 mg/dL (0.7-1.3) Estimated GFR (Cockcroft-Gault) 11.2 Glucose Level 104 mg/dL (70-99) Calcium Level 8.7 mg/dL (8.5-10.1) Triglycerides Level 38 mg/dL (0-150) Cholesterol Level 112 mg/dL (0-200) LDL Cholesterol, Calculated 45 mg/dL (0-100) VLDL Cholesterol, Calculated 8 mg/dL (0-40) Non-HDL Cholesterol Calculated 53 mg/dL (0-129) HDL Cholesterol 59 mg/dL (40-60) Cholesterol/HDL Ratio 1.9 Review of Systems Review of Systems A 14 point ROS was completed with the following noted as positive: Other systems reviewed and negative. \CONSTITUTIONAL: No fever or chills EYES: No recent changes SKIN: No rash or itching CARDIOVASCULAR: No chest pain, syncope, palpitations, or edema RESPIRATORY: No SOB or cough GASTROINTESTINAL: No nausea, vomiting or abdominal pain NEUROLOGICAL: No headaches or weakness ENDOCRINE: No cold or heat intolerance GENITOURINARY: No urgency or frequency of urination MUSCULOSKELETAL: No back pain or joint pain LYMPHATICS: No enlarged lymph nodes PSYCHIATRIC: No anxiety or depression Comment Review of Relevant I have reviewed the following items theresa (where applicable) has been applied. Labs Laboratory Tests Test 10/30/17 11:10 10/31/17 04:40 Prothrombin Time 17.3 SEC (11.7-14.0) Prothromb Time International Ratio 1.5 (0.8-1.1) Activated Partial Thromboplast Time 39 SEC (24-38) Sodium Level 137 mmol/L (136-145) Potassium Level 4.2 mmol/L (3.5-5.1) Chloride Level 100 mmol/L (98-107) Carbon Dioxide Level 30 mmol/L (21-32) Anion Gap 7 (6-14) Blood Urea Nitrogen 22 mg/dL (8-26) Creatinine 5.9 mg/dL (0.7-1.3) Estimated GFR (Cockcroft-Gault) 11.2 Glucose Level 104 mg/dL (70-99) Calcium Level 8.7 mg/dL (8.5-10.1) Triglycerides Level 38 mg/dL (0-150) Cholesterol Level 112 mg/dL (0-200) LDL Cholesterol, Calculated 45 mg/dL (0-100) VLDL Cholesterol, Calculated 8 mg/dL (0-40) Non-HDL Cholesterol Calculated 53 mg/dL (0-129) HDL Cholesterol 59 mg/dL (40-60) Cholesterol/HDL Ratio 1.9 Laboratory Tests Test 10/30/17 11:10 10/31/17 04:40 Prothrombin Time 17.3 SEC (11.7-14.0) Prothromb Time International Ratio 1.5 (0.8-1.1) Activated Partial Thromboplast Time 39 SEC (24-38) Sodium Level 137 mmol/L (136-145) Potassium Level 4.2 mmol/L (3.5-5.1) Chloride Level 100 mmol/L (98-107) Carbon Dioxide Level 30 mmol/L (21-32) Anion Gap 7 (6-14) Blood Urea Nitrogen 22 mg/dL (8-26) Creatinine 5.9 mg/dL (0.7-1.3) Estimated GFR (Cockcroft-Gault) 11.2 Glucose Level 104 mg/dL (70-99) Calcium Level 8.7 mg/dL (8.5-10.1) Triglycerides Level 38 mg/dL (0-150) Cholesterol Level 112 mg/dL (0-200) LDL Cholesterol, Calculated 45 mg/dL (0-100) VLDL Cholesterol, Calculated 8 mg/dL (0-40) Non-HDL Cholesterol Calculated 53 mg/dL (0-129) HDL Cholesterol 59 mg/dL (40-60) Cholesterol/HDL Ratio 1.9 Medications Current Medications Acetaminophen (Tylenol) 650 mg PRN Q6HRS PRN PO FEVER Last administered on 10/31at 09:48; Start 10/28/17 at 19:30 Morphine Sulfate (Morphine Sulfate) 4 mg PRN Q4HRS PRN IV PAIN; Start 10/28/17 at 19:30 Ondansetron HCl (Zofran) 4 mg PRN Q6HRS PRN IV NAUSEA/VOMITING; Start 10/28/17 at 19:30 Labetalol HCl (Normodyne Iv Push) 20 mg PRN Q4HRS PRN IVP HYPERTENSION, SEE COMMENTS; Start 10/28/17 at 19:30 Latanoprost (Xalatan) 1 drop QHS OU Last administered on 10/30/17at 21:08; Start 10/28/17 at 21:00 Cetirizine HCl (ZyrTEC) 5 mg DAILY PO Last administered on 10/31/17at 08:25; Start 10/29/17 at 11:00 Vitamin D (Vitamin D3) 1,000 unit DAILY PO Last administered on 10/31/17at 08:25 ; Start 10/29/17 at 11:00 Cyanocobalamin (Vitamin B-12) 1,000 mcg QMONTH IM ; Start 11/28/17 at 09:00 Finasteride (Proscar) 5 mg HS PO Last administered on 10/30/17 21:07; Start at 21:00 Acetaminophen/ Hydrocodone Bitart (Lortab 5/325) 1 tab PRN Q6HRS PRN PO PAIN Last administered on 10/31/17 02:37; Start 10/29/17 at 10:00 Levothyroxine Sodium (Synthroid) 224 mcg DAILYAC PO Last administered on 08:25; Start 10/29/17 at 11:00 Losartan Potassium (Cozaar) 25 mg BID PO Last administered on 10/30/17 21:07; Start 10/29/17 at 11:00 Ondansetron HCl (Zofran Odt) 4 mg PRN Q6HRS PRN PO NAUSEA/VOMITING; Start 10/29 at 10:00 Sevelamer Carbonate (Renvela) 800 mg TIDWMEALS PO Last administered on 08:25; Start 10/29/17 at 12:00 Atorvastatin Calcium (Lipitor) 40 mg QHS PO Last administered on 10/30/17 21: 07; Start 10/29/17 at 21:00 Hydralazine HCl (Apresoline) 50 mg TID PO Last administered on 10/30/17 21:08 ; Start 10/29/17 at 14:00 Mirtazapine (Remeron) 7.5 mg QHS PO Last administered on 10/30/17 21:07; Start 10/29/17 at 21:00 Polyethylene Glycol (miraLAX PACKET) 17 gm DAILY PO Last administered on 08:32; Start 10/29/17 at 11:00 Terazosin HCl (Hytrin) 4 mg BID PO Last administered on 10/30/17 21:07; Start 10/29/17 at 11:00 Sodium Chloride 1,000 ml @ 1,000 mls/hr Q1H PRN IV hypotension; Start 10/29/17 at 12:21; Stop 10/29/17 at 18:20; Status DC Albumin Human 200 ml @ 200 mls/hr 1X PRN PRN IV Hypotension; Start 10/29/17 at 12:30; Stop 10/29/17 at 18:29; Status DC Acetaminophen (Tylenol) 500 mg 1X PRN PRN PO MILD PAIN / TEMP; Start 10/29/17 at 12:30; Stop 10/30/17 at 12:29; Status DC Diphenhydramine HCl (Benadryl) 25 mg 1X PRN PRN IV ITCHING; Start 10/29/17 at 12:30; Stop 10/30/17 at 12:29; Status DC Diphenhydramine HCl (Benadryl) 25 mg 1X PRN PRN IV ITCHING; Start 10/29/17 at 12:30; Stop 10/30/17 at 12:29; Status DC Labetalol HCl (Normodyne Iv Push) 10 mg PRN Q1HR PRN IVP SBP > 180; Start 10/29 at 12:30; Stop 10/29/17 at 19:53; Status DC Clonidine HCl (Catapres) 0.1 mg 1X PRN PRN PO SBP > 180; Start 10/29/17 at 12: 30; Stop 10/30/17 at 12:29; Status DC Sodium Chloride 1,000 ml @ 400 mls/hr Q2H30M PRN IV PATENCY; Start 10/29/17 at 12:21; Stop 10/30/17 at 00:20; Status DC Info (PHARMACY MONITORING -- do not chart) 1 each PRN DAILY PRN MC SEE COMMENTS ; Start 10/29/17 at 12:30 Albuterol/ Ipratropium (Duoneb) 3 ml RTQID NEB Last administered on 10/31/17at 06:57; Start 10/29/17 at 17:00 Heparin Sodium (Porcine) (Heparin Sq) 5,000 unit BID SQ Last administered on at 08:32; Start 10/30/17 at 21:00 Vitamin B Complex/ Vitamin C (Florin-Rosalba) 1 tab DAILY PO Last administered on at 08:25; Start 10/29/17 at 20:00 Non-Formulary Medication (Timolol Maleate (Timoptic)) 1 drop DAILY08 EACHEYE ; Start 10/30/17 at 08:00; Status UNV Albuterol/ Ipratropium (Duoneb) 3 ml PRN Q4HRS PRN NEB SHORTNESS OF BREATH Last administered on 10/31/17at 02:30; Start 10/31/17 at 02:30; Stop 10/31/17 at 03:03; Status DC Albuterol Sulfate (Ventolin Neb Soln) 2.5 mg PRN Q4HRS PRN NEB SHORTNESS OF BREATH; Start 10/31/17 at 03:03 Sodium Chloride 1,000 ml @ 1,000 mls/hr Q1H PRN IV hypotension; Start 10/31/17 at 08:30; Stop 10/31/17 at 14:29 Sodium Chloride 1,000 ml @ 400 mls/hr Q2H30M PRN IV PATENCY; Start 10/31/17 at 08:30; Stop 10/31/17 at 20:29 Info (PHARMACY MONITORING -- do not chart) 1 each PRN DAILY PRN MC SEE COMMENTS ; Start 10/31/17 at 08:30; Stop 10/31/17 at 09:48; Status DC Info (PHARMACY MONITORING -- do not chart) 1 each PRN DAILY PRN MC SEE COMMENTS ; Start 10/31/17 at 08:30; Stop 10/31/17 at 09:49; Status DC Active Scripts Active Ondansetron Odt (Ondansetron) 4 Mg Tab.rapdis 4 Mg PO PRN Q6HRS PRN Hydralazine Hcl 50 Mg Tablet 50 Mg PO TID Reported Timoptic (Timolol Maleate) 10 Ml Drops 1 Drop EACHEYE DAILY08 [place] 5-325 Tablet (Acetaminophen/Hydrocodone Bitart) 1 Each Tablet 1 Tab PO PRN Q6HRS PRN Renvela (Sevelamer Carbonate) 800 Mg Tablet 800 Mg PO TIDWMEALS Florin-Rosalba Rx Tablet (Vit B Cmplx 3/Fa/Vit C/Biotin) 1 Each Tablet 1 Each PO Mirtazapine 15 Mg Tablet 7.5 Mg PO QHS Levothyroxine Sodium 112 Mcg Tablet 224 Mcg PO DAILYAC Losartan Potassium 25 Mg Tablet 25 Mg PO BID Cyanocobalamin Injection (Cyanocobalamin (Vitamin B-12)) 1,000 Mcg/1 Ml Vial 1 Ml IM QMONTH Miralax (Polyethylene Glycol 3350) 17 Gm Powd.pack 1 Packet PO DAILY Terazosin Hcl 2 Mg Capsule 2 Cap PO BID Latanoprost 2.5 Ml Drops 1 Drop OP HS Finasteride 5 Mg Tablet 5 Mg PO HS Cetirizine Hcl 10 Mg Tablet 5 Mg PO Atorvastatin Calcium 80 Mg Tablet 40 Mg PO HS Vitamin D3 (Cholecalciferol (Vitamin D3)) 1,000 Unit Tablet 1,000 Unit PO Vitals/I & O Vital Sign - Last 24 Hours 10/30/17 10/30/17 10/30/17 10/30/17 10:36 11:27 14:18 15:28 Temp 97.6 97.5 97.6 97.5 Pulse 64 68 Resp 18 17 B/P (MAP) 133/59 (83) 157/70 (99) Pulse Ox 98 99 O2 Delivery Room Air Room Air Room Air Room Air 10/30/17 10/30/17 10/30/17 10/30/17 16:06 19:00 19:57 20:00 Temp 97.7 97.7 Pulse 68 65 Resp 18 B/P (MAP) 157/70 114/48 (70) Pulse Ox 95 97 O2 Delivery Room Air Room Air Room Air 10/30/17 10/30/17 10/30/17 10/30/17 21:07 21:07 21:08 22:40 Temp 98.1 98.1 Pulse 65 65 65 67 Resp 18 B/P (MAP) 114/48 114/48 114/48 109/46 (67) Pulse Ox 95 O2 Delivery Room Air 10/31/17 10/31/17 10/31/17 10/31/17 02:31 02:37 02:49 03:46 Temp 97.9 97.9 Pulse 59 Resp 18 B/P (MAP) 131/62 (85) Pulse Ox 99 98 O2 Delivery Room Air Room Air Room Air Room Air 10/31/17 10/31/17 10/31/17 06:58 07:00 08:00 Temp 98.1 98.1 Pulse 65 Resp 20 B/P (MAP) 119/54 (75) Pulse Ox 96 O2 Delivery Room Air Room Air Room Air Intake and Output 10/30/17 10/30/17 10/31/17 15:00 23:00 07:00 Intake Total 400 ml 0 ml Output Total 1 ml 0 ml Balance -1 ml 400 ml 0 ml Nutrition Consultation Dietary Evaluation: Recommendations by RD: Protein supplementation Comments: REC renal/ADA diet REC Glucerna (chocolate) TID Continue w/florin-rosalba Expected Outcomes/Goals: PO intake to meet >75% est needs Malnutrition Findings: Food and Nutrition Intake (Mod: <75% est energy req 7days Weight Status: Appropriate ABDIRASHID CLAY MD Oct 31, 2017 10:33
--- NOTE | 2017-10-31 12:00 | PDOC ---
PULMONARY PROGRESS NOTES Subjective no soa wants to go home Vitals Vital Signs Date Time Temp Pulse Resp B/P (MAP) Pulse Ox O2 Delivery O2 Flow Rate FiO2 10/31/17 08:00 Room Air 10/31/17 07:00 98.1 65 20 119/54 (75) 96 98.1 General: Alert, No acute distress Lungs: Clear Cardiovascular: S1 Abdomen: Soft Neuro Exam: Alert Extremities: No Edema Skin: Warm Labs Laboratory Tests Test 10/30/17 11:10 10/31/17 04:40 Prothrombin Time 17.3 SEC (11.7-14.0) Prothromb Time International Ratio 1.5 (0.8-1.1) Activated Partial Thromboplast Time 39 SEC (24-38) Sodium Level 137 mmol/L (136-145) Potassium Level 4.2 mmol/L (3.5-5.1) Chloride Level 100 mmol/L (98-107) Carbon Dioxide Level 30 mmol/L (21-32) Anion Gap 7 (6-14) Blood Urea Nitrogen 22 mg/dL (8-26) Creatinine 5.9 mg/dL (0.7-1.3) Estimated GFR (Cockcroft-Gault) 11.2 Glucose Level 104 mg/dL (70-99) Calcium Level 8.7 mg/dL (8.5-10.1) Triglycerides Level 38 mg/dL (0-150) Cholesterol Level 112 mg/dL (0-200) LDL Cholesterol, Calculated 45 mg/dL (0-100) VLDL Cholesterol, Calculated 8 mg/dL (0-40) Non-HDL Cholesterol Calculated 53 mg/dL (0-129) HDL Cholesterol 59 mg/dL (40-60) Cholesterol/HDL Ratio 1.9 Laboratory Tests Test 10/31/17 04:40 Sodium Level 137 mmol/L (136-145) Potassium Level 4.2 mmol/L (3.5-5.1) Chloride Level 100 mmol/L (98-107) Carbon Dioxide Level 30 mmol/L (21-32) Anion Gap 7 (6-14) Blood Urea Nitrogen 22 mg/dL (8-26) Creatinine 5.9 mg/dL (0.7-1.3) Estimated GFR (Cockcroft-Gault) 11.2 Glucose Level 104 mg/dL (70-99) Calcium Level 8.7 mg/dL (8.5-10.1) Triglycerides Level 38 mg/dL (0-150) Cholesterol Level 112 mg/dL (0-200) LDL Cholesterol, Calculated 45 mg/dL (0-100) VLDL Cholesterol, Calculated 8 mg/dL (0-40) Non-HDL Cholesterol Calculated 53 mg/dL (0-129) HDL Cholesterol 59 mg/dL (40-60) Cholesterol/HDL Ratio 1.9 Medications Active Scripts Medications Dose Route/Sig Max Daily Dose Days Date Category Timoptic (Timolol Maleate) 10 Ml Drops 1 Drop EACHEYE DAILY08 10/29/17 Reported [place] 5-325 Tablet (Acetaminophen/Hydrocodone Bitart) 1 Each Tablet 1 Tab PO PRN Q6HRS PRN 10/29/17 Reported Renvela (Sevelamer Carbonate) 800 Mg Tablet 800 Mg PO TIDWMEALS 10/29/17 Reported Praveena-Chon Rx Tablet (Vit B Cmplx 3/Fa/Vit C/Biotin) 1 Each Tablet 1 Each PO 10/29/17 Reported Mirtazapine 15 Mg Tablet 7.5 Mg PO QHS 10/29/17 Reported Levothyroxine Sodium 112 Mcg Tablet 224 Mcg PO DAILYAC 10/29/17 Reported Losartan Potassium 25 Mg Tablet 25 Mg PO BID 10/28/17 Reported Ondansetron Odt (Ondansetron) 4 Mg Tab.rapdis 4 Mg PO PRN Q6HRS PRN 11/28/16 Rx Hydralazine Hcl 50 Mg Tablet 50 Mg PO TID 11/28/16 Rx Cyanocobalamin Injection (Cyanocobalamin (Vitamin B-12)) 1,000 Mcg/1 Ml Vial 1 Ml IM QMONTH 11/22/16 Reported Miralax (Polyethylene Glycol 3350) 17 Gm Powd.pack 1 Packet PO DAILY 11/22/16 Reported Terazosin Hcl 2 Mg Capsule 2 Cap PO BID 11/22/16 Reported Latanoprost 2.5 Ml Drops 1 Drop OP HS 11/22/16 Reported Finasteride 5 Mg Tablet 5 Mg PO HS 11/22/16 Reported Cetirizine Hcl 10 Mg Tablet 5 Mg PO 11/22/16 Reported Atorvastatin Calcium 80 Mg Tablet 40 Mg PO HS 11/22/16 Reported Vitamin D3 (Cholecalciferol (Vitamin D3)) 1,000 Unit Tablet 1,000 Unit PO 11/22/16 Reported Impression . 1. Dyspnea secondary to development of mild-moderate right-sided pleural effusion and small left pleural effusion. 2. Bilateral pleural effusions, likely related to end-stage renal disease/[id number] diastolic heart failure. 3. End-stage renal disease. 4. No significant history of tobacco use. 5. Tiny nodules seen in the right lung, which is 4-5 mm in size and this is a patient who has never been a smoker, followup CT in 6 months would be reasonable. 6. Descending thoracic aortic aneurysm which is enlarging. Plan . 1. From a pulmonary standpoint, he is asymptomatic, right-sided thoracentesis not performed as there was not enough fluid on US.. 2. Follow up Thoracic Surgery's recommendation regarding aneurysm. 3. Ultrafiltration with hemodialysis. 4. Follow up on CT with PCP regarding the nodules in 6-8 months. can go home after HD BRANDON HARMAN MD Oct 31, 2017 12:00
--- NOTE | 2017-10-31 12:01 | PDOC ---
Dialysis Progress Note Dialysis Note Dialysis Note Seen on Hemodialysis, tolerating treatment Well so far Vitals on Hemodialysis: 146/68 61 afeb General Appearance: Awake: Alert Oriented x 3 Neck: No JVD or JVP Chest: CTA Micheal Heart: S1 S2 Abdomen - Soft NTND Extremities - No Edema ESRD: Dialysis as below F 180 NR 3.5 Hrs 3 K 2.5 Ca 140 Na 35 HC03 Qb 350 + Qd 500+ Heparin 0 Units Uf 1-2 Kgs or to dry weight as tolerated May give 25-50 gms of 25% Albumin if needed to maintain Hemodynamic stability Treatment plan reviewed and discussed with slurry tank tender Vitals Vital Signs Vital Signs Date Time Temp Pulse Resp B/P (MAP) Pulse Ox O2 Delivery O2 Flow Rate FiO2 10/31/17 08:00 Room Air 10/31/17 07:00 98.1 65 20 119/54 (75) 96 98.1 Labs Last Labs Laboratory Tests Test 10/30/17 11:10 10/31/17 04:40 Prothrombin Time 17.3 SEC (11.7-14.0) Prothromb Time International Ratio 1.5 (0.8-1.1) Activated Partial Thromboplast Time 39 SEC (24-38) Sodium Level 137 mmol/L (136-145) Potassium Level 4.2 mmol/L (3.5-5.1) Chloride Level 100 mmol/L (98-107) Carbon Dioxide Level 30 mmol/L (21-32) Anion Gap 7 (6-14) Blood Urea Nitrogen 22 mg/dL (8-26) Creatinine 5.9 mg/dL (0.7-1.3) Estimated GFR (Cockcroft-Gault) 11.2 Glucose Level 104 mg/dL (70-99) Calcium Level 8.7 mg/dL (8.5-10.1) Triglycerides Level 38 mg/dL (0-150) Cholesterol Level 112 mg/dL (0-200) LDL Cholesterol, Calculated 45 mg/dL (0-100) VLDL Cholesterol, Calculated 8 mg/dL (0-40) Non-HDL Cholesterol Calculated 53 mg/dL (0-129) HDL Cholesterol 59 mg/dL (40-60) Cholesterol/HDL Ratio 1.9 Laboratory Tests Test 10/31/17 04:40 Sodium Level 137 mmol/L (136-145) Potassium Level 4.2 mmol/L (3.5-5.1) Chloride Level 100 mmol/L (98-107) Carbon Dioxide Level 30 mmol/L (21-32) Anion Gap 7 (6-14) Blood Urea Nitrogen 22 mg/dL (8-26) Creatinine 5.9 mg/dL (0.7-1.3) Estimated GFR (Cockcroft-Gault) 11.2 Glucose Level 104 mg/dL (70-99) Calcium Level 8.7 mg/dL (8.5-10.1) Triglycerides Level 38 mg/dL (0-150) Cholesterol Level 112 mg/dL (0-200) LDL Cholesterol, Calculated 45 mg/dL (0-100) VLDL Cholesterol, Calculated 8 mg/dL (0-40) Non-HDL Cholesterol Calculated 53 mg/dL (0-129) HDL Cholesterol 59 mg/dL (40-60) Cholesterol/HDL Ratio 1.9 YULISA FONTANA MD Oct 31, 2017 12:01
[2017-10-31 15:00] VITALS: BP_SYST 86; BP_SYST 91; BP_DIAS 44; BP_DIAS 45
[2017-10-31 19:23] VITALS: BP 137/60
[2017-10-31] MEDS: ATORVASTATIN CALCIUM 40 MG TABLET. PO SCH (19:46)
[2017-10-31] MEDS: MIRTAZAPINE 7.5 MG TABLET. PO SCH (19:46)
[2017-10-31] MEDS: FINASTERIDE 5 MG TABLET. PO SCH (19:47)
[2017-10-31] MEDS: LATANOPROST 0.005% OPHTH SOLUTION 2.5ML BOTTLE. OU SCH (19:47)
[2017-10-31 22:04] VITALS: BP 130/51
[2017-11-01 03:15] VITALS: BP 128/52
[2017-11-01 07:00] VITALS: BP 154/63
[2017-11-01] MEDS: IPRATRPIUM/ALBUTEROL 0.5/2.5MG 3 ML NEBU. NEB SCH ×3 (07:17→15:33)
[2017-11-01] MEDS ORDERED: TIMOLOL 0.5% OPHTH SOLUTION 5ML BOTTLE. OU SCH (08:00)
[2017-11-01] MEDS: CETIRIZINE HCL 10 MG TABLET. PO SCH (08:46)
[2017-11-01] MEDS: LEVOTHYROXINE 112 MCG TABLET PO SCH (08:46)
[2017-11-01] MEDS: SEVELAMER CARBONATE 800 MG TABLET. PO SCH ×2 (08:46→11:34)
[2017-11-01] MEDS: ACETAMINOPHEN 325 MG TABLET. PO PRN (08:46)
[2017-11-01] MEDS: CHOLECALCIFEROL (VITAMIN D3) 1,000 UNIT TABLET PO SCH (08:46)
[2017-11-01] MEDS: POLYETHYLENE GLYCOL 3350 17 GM PACKET. PO SCH (08:46)
[2017-11-01] MEDS: FOLIC/VIT B COMP W-C (RENAL) TABLET. PO SCH (08:46)
[2017-11-01] MEDS: TERAZOSIN 1 MG CAPSULE. PO SCH (08:47)
[2017-11-01] MEDS: LOSARTAN POTASSIUM 25 MG TABLET. PO SCH (08:47)
[2017-11-01] MEDS: HEPARIN PF for SUB-Q USE 5,000 UNIT/0.5 ML VIAL. SQ SCH (08:47)
[2017-11-01 10:50] VITALS: BP 119/52
--- NOTE | 2017-11-01 11:19 | PDOC ---
PULMONARY PROGRESS NOTES Subjective no soa Vitals Vital Signs Date Time Temp Pulse Resp B/P (MAP) Pulse Ox O2 Delivery O2 Flow Rate FiO2 11/01/17 10:50 97.9 58 24 119/52 (74) 98 Room Air 97.9 General: Alert, No acute distress Lungs: Clear Cardiovascular: S1 Abdomen: Soft Neuro Exam: Alert Extremities: No Edema Skin: Warm Labs Laboratory Tests Test 10/31/17 04:40 Sodium Level 137 mmol/L (136-145) Potassium Level 4.2 mmol/L (3.5-5.1) Chloride Level 100 mmol/L (98-107) Carbon Dioxide Level 30 mmol/L (21-32) Anion Gap 7 (6-14) Blood Urea Nitrogen 22 mg/dL (8-26) Creatinine 5.9 mg/dL (0.7-1.3) Estimated GFR (Cockcroft-Gault) 11.2 Glucose Level 104 mg/dL (70-99) Calcium Level 8.7 mg/dL (8.5-10.1) Triglycerides Level 38 mg/dL (0-150) Cholesterol Level 112 mg/dL (0-200) LDL Cholesterol, Calculated 45 mg/dL (0-100) VLDL Cholesterol, Calculated 8 mg/dL (0-40) Non-HDL Cholesterol Calculated 53 mg/dL (0-129) HDL Cholesterol 59 mg/dL (40-60) Cholesterol/HDL Ratio 1.9 Medications Active Scripts Medications Dose Route/Sig Max Daily Dose Days Date Category Timoptic (Timolol Maleate) 10 Ml Drops 1 Drop EACHEYE DAILY08 10/29/17 Reported Morton 5-325 Tablet (Acetaminophen/Hydrocodone Bitart) 1 Each Tablet 1 Tab PO PRN Q6HRS PRN 10/29/17 Reported Renvela (Sevelamer Carbonate) 800 Mg Tablet 800 Mg PO TIDWMEALS 10/29/17 Reported Praveena-Chon Rx Tablet (Vit B Cmplx 3/Fa/Vit C/Biotin) 1 Each Tablet 1 Each PO 10/29/17 Reported Mirtazapine 15 Mg Tablet 7.5 Mg PO QHS 10/29/17 Reported Levothyroxine Sodium 112 Mcg Tablet 224 Mcg PO DAILYAC 10/29/17 Reported Losartan Potassium 25 Mg Tablet 25 Mg PO BID 10/28/17 Reported Ondansetron Odt (Ondansetron) 4 Mg Tab.rapdis 4 Mg PO PRN Q6HRS PRN 11/28/16 Rx Hydralazine Hcl 50 Mg Tablet 50 Mg PO TID 11/28/16 Rx Cyanocobalamin Injection (Cyanocobalamin (Vitamin B-12)) 1,000 Mcg/1 Ml Vial 1 Ml IM QMONTH 11/22/16 Reported Miralax (Polyethylene Glycol 3350) 17 Gm Powd.pack 1 Packet PO DAILY 11/22/16 Reported Terazosin Hcl 2 Mg Capsule 2 Cap PO BID 11/22/16 Reported Latanoprost 2.5 Ml Drops 1 Drop OP HS 11/22/16 Reported Finasteride 5 Mg Tablet 5 Mg PO HS 11/22/16 Reported Cetirizine Hcl 10 Mg Tablet 5 Mg PO 11/22/16 Reported Atorvastatin Calcium 80 Mg Tablet 40 Mg PO HS 11/22/16 Reported Vitamin D3 (Cholecalciferol (Vitamin D3)) 1,000 Unit Tablet 1,000 Unit PO 11/22/16 Reported Impression . 1. Dyspnea secondary to development of mild-moderate right-sided pleural effusion and small left pleural effusion. 2. Bilateral pleural effusions, likely related to end-stage renal disease/[id number] diastolic heart failure. 3. End-stage renal disease. 4. No significant history of tobacco use. 5. Tiny nodules seen in the right lung, which is 4-5 mm in size and this is a patient who has never been a smoker, followup CT in 6 months would be reasonable. 6. Descending thoracic aortic aneurysm which is enlarging. Plan . 1. From a pulmonary standpoint, he is asymptomatic, right-sided thoracentesis not performed as there was not enough fluid on US.. 2. Follow up Thoracic Surgery's recommendation regarding aneurysm. 3. Ultrafiltration with hemodialysis. 4. Follow up on CT with PCP regarding the nodules in 6-8 months. can go home after HD BRANDON HARMAN MD Nov 01, 2017 11:19
--- NOTE | 2017-11-01 12:20 | PDOC3 ---
Discharge Summary Visit Information Date of Admission: Oct 28, 2017 Date of Discharge: Nov 01, 2017 Admitting Diagnosis Comment: 1. ESRD on hd MWF 2. generalized weakness 3. HTN 4. HLD 5. Hypothyroidism on replacement 6. BPH 7. Anemia 8. Glaucoma 9. PPM 10. DYSPNEA 11. PROB COPD 12, Pleural effusion, RT - not enough for thoracentesis Brief Hospital Course Allergies Allergies Coded Allergies Type Severity Reaction Last Updated Verified tamsulosin Allergy Intermediate 11/23/16 Yes Vital Signs Vital Signs Date Time Temp Pulse Resp B/P (MAP) Pulse Ox O2 Delivery O2 Flow Rate FiO2 11/01/17 11:26 97 Room Air 11/01/17 10:50 97.9 58 24 119/52 (74) 97.9 Lab Results Laboratory Tests Test 10/31/17 04:40 Sodium Level 137 mmol/L (136-145) Potassium Level 4.2 mmol/L (3.5-5.1) Chloride Level 100 mmol/L (98-107) Carbon Dioxide Level 30 mmol/L (21-32) Anion Gap 7 (6-14) Blood Urea Nitrogen 22 mg/dL (8-26) Creatinine 5.9 mg/dL (0.7-1.3) Estimated GFR (Cockcroft-Gault) 11.2 Glucose Level 104 mg/dL (70-99) Calcium Level 8.7 mg/dL (8.5-10.1) Triglycerides Level 38 mg/dL (0-150) Cholesterol Level 112 mg/dL (0-200) LDL Cholesterol, Calculated 45 mg/dL (0-100) VLDL Cholesterol, Calculated 8 mg/dL (0-40) Non-HDL Cholesterol Calculated 53 mg/dL (0-129) HDL Cholesterol 59 mg/dL (40-60) Cholesterol/HDL Ratio 1.9 Brief Hospital Course Mr. Cruz is a 77 old [place] male who lives at home, admitted because of shortness of breath and weakness. Needed to get fluid off during dialysis more so than usual. Initially we thought he needed thoracentesis but there was enough not enough fluid to drain. Comanage with pulmonary, okay to go home, not on any Lasix. He also had new onset ascites based CAT scan but nothing that needed to be drained, no abdominal distention. Patient is refusing SNU despite recs by PT. I have arranged for home health. Pulmonary recommends repeat CAT scan in 6-8 months time and I provided a prescription for that. He did get extra doses of dialysis to get fluid off Medications : no new meds Repeat CAT scan 6-8 months time for the pleural fluid I have arranged for home health Patient seen and examined examined, discussed with RN. Discharge Information Condition at Discharge: Improved, Stable Disposition/Orders: D/C to Home, D/C to Home w/ HH Scheduled Atorvastatin Calcium (Atorvastatin Calcium) 80 Mg Tablet, 40 MG PO HS for FOR CHOLESTEROL, #30 Ref 0 (Reported) Entered as Reported by: MAXINE CASILLAS on 11/22/161842 Last Action: Converted on 10/29/17957 by CARMEL SARMIENTO Cyanocobalamin (Vitamin B-12) (Cyanocobalamin Injection) 1,000 Mcg/1 Ml Vial, 1 ML IM QMONTH, #1 (Reported) Entered as Reported by: MAXINE CASILLAS on 11/22/161928 Last Action: Continued on 10/29/17957 by CARMEL SARMIENTO Finasteride (Finasteride) 5 Mg Tablet, 5 MG PO HS, (Reported) Entered as Reported by: MAXINE CASILLAS on 11/22/161928 Last Action: Continued on 10/29/17957 by CARMEL SARMIENTO Hydralazine Hcl (Hydralazine Hcl) 50 Mg Tablet, 50 MG PO TID, #90 Prescribed by: DENILSON WALSH MD on 11/28/161125 Last Action: Converted on 10/29/17957 by CARMEL SARMIENTO Latanoprost (Latanoprost) 2.5 Ml Drops, 1 DROP OP HS, (Reported) Entered as Reported by: MAXINE CASILLAS on 11/22/161928 Last Action: Converted on 10/28/172001 by GUERO WOLFE Levothyroxine Sodium (Levothyroxine Sodium) 112 Mcg Tablet, 224 MCG PO DAILYAC for THYROID SUPPLEMENT, #30 Ref 0 (Reported) Entered as Reported by: CARMEL SARMIENTO on 10/29/17943 Last Action: Continued on 10/29/17957 by CARMEL SARMIENTO Losartan Potassium (Losartan Potassium) 25 Mg Tablet, 25 MG PO BID, (Reported) Entered as Reported by: GUERO WOLFE on 10/28/172001 Last Action: Continued on 10/29/17957 by CARMEL SARMIENTO Mirtazapine (Mirtazapine) 15 Mg Tablet, 7.5 MG PO QHS, (Reported) Entered as Reported by: CARMEL SARMIENTO on 10/29/17943 Last Action: Converted on 10/29/17957 by CARMEL SARMIENTO Polyethylene Glycol 3350 (Miralax) 17 Gm Powd.pack, 1 PACKET PO DAILY, #30 Ref 3 (Reported) Entered as Reported by: MAXINE CASILLAS on 11/22/161928 Last Action: Converted on 10/29/17957 by CARMEL SARMIENTO Sevelamer Carbonate (Renvela) 800 Mg Tablet, 800 MG PO TIDWMEALS, (Reported) Entered as Reported by: CARMEL SARMIENTO on 10/29/17943 Last Action: Continued on 10/29/17957 by CARMEL SARMIENTO Terazosin Hcl (Terazosin Hcl) 2 Mg Capsule, 2 CAP PO BID, #90 Ref 1 (Reported) Entered as Reported by: MAXINE CASILLAS on 11/22/161928 Last Action: Converted on 10/29/17957 by CARMEL SARMIENTO Timolol Maleate (Timoptic) 10 Ml Drops, 1 DROP EACHEYE DAILY08, #10 Ref 3 ( Reported) Entered as Reported by: GUERO WOLFE on 10/29/172018 Last Action: Converted on 10/29/172019 by GUERO WOLFE Scheduled PRN Hydrocodone/Apap 5-325 ([place] 5-325 Tablet) 1 Each Tablet, 1 TAB PO PRN Q6HRS PRN for PAIN, Ref 0 (Reported) Entered as Reported by: CARMEL SARMIENTO on 10/29/17943 Last Action: Continued on 10/29/17957 by CARMEL SARMIENTO Ondansetron (Ondansetron Odt) 4 Mg Tab.rapdis, 4 MG PO PRN Q6HRS PRN for NAUSEA/ VOMITING, #10 Prescribed by: DENILSON WALSH MD on 11/28/16 1126 Last Action: Continued on 10/29/17957 by CARMEL SARMIENTO Miscellaneous Medications Cetirizine Hcl (Cetirizine Hcl) 10 Mg Tablet, 5 MG PO, (Reported) Entered as Reported by: MAXINE CASILLAS on 11/22/161928 Last Action: Continued on 10/29/17957 by CARMEL SARMIENTO Cholecalciferol (Vitamin D3) (Vitamin D3) 1,000 Unit Tablet, 1,000 UNIT PO, ( Reported) Entered as Reported by: MAXINE CASILLAS on 11/22/161842 Last Action: Continued on 10/29/17957 by CARMEL SARMIENTO Vit B Cmplx 3/Fa/Vit C/Biotin (Praveena-Chon Rx Tablet) 1 Each Tablet, 1 EACH PO, ( Reported) Entered as Reported by: CARMEL SARMIENTO on 10/29/17943 Last Action: New Order on 10/29/17943 by ABDIRASHID LOPEZ MD Nov 01, 2017 12:20
[2017-11-01 14:00] VITALS: BP 132/66
[2017-11-01] MEDS: HYDROcodone/APAP 5/325MG 1 TAB TABLET PO PRN (14:00)
[2017-11-28] MEDS ORDERED: CYANOCOBALAMIN (VITAMIN B-12) 1,000 MCG/ML VIAL IM SCH (09:00)
== END 2017-11-01 16:00 | disposition home health service (06) | DRG 291 ==
LOC: 6 SOUTH 18:17
PROVIDERS: ADMIT Internal Medicine; ATTEND Internal Medicine
PROC: 5A1D70Z Performance of Urinary Filtration, Intermittent, Less than 6 Hours Per Day (ICD-10-PCS; principal; 2017-10-29)
PROC: 5A1D70Z Performance of Urinary Filtration, Intermittent, Less than 6 Hours Per Day (ICD-10-PCS; 2017-10-31)
DX: I13.2 Hypertensive heart and chronic kidney disease with heart failure and with stage 5 chronic kidney disease, or end stage renal disease (principal); E43 Unspecified severe protein-calorie malnutrition; N18.6 End stage renal disease; J90 Pleural effusion, not elsewhere classified; J98.11 Atelectasis; R18.8 Other ascites; I50.22 Chronic systolic (congestive) heart failure; E11.22 Type 2 diabetes mellitus with diabetic chronic kidney disease; E11.51 Type 2 diabetes mellitus with diabetic peripheral angiopathy without gangrene; E78.5 Hyperlipidemia, unspecified; M19.90 Unspecified osteoarthritis, unspecified site; E03.9 Hypothyroidism, unspecified; N40.0 Benign prostatic hyperplasia without lower urinary tract symptoms; H40.9 Unspecified glaucoma; D63.8 Anemia in other chronic diseases classified elsewhere; I71.2 Thoracic aortic aneurysm, without rupture; I25.10 Atherosclerotic heart disease of native coronary artery without angina pectoris; J44.9 Chronic obstructive pulmonary disease, unspecified; I07.1 Rheumatic tricuspid insufficiency; I70.0 Atherosclerosis of aorta; N28.1 Cyst of kidney, acquired; Z95.0 Presence of cardiac pacemaker; Z88.8 Allergy status to other drugs, medicaments and biological substances; Z99.2 Dependence on renal dialysis; Z86.73 Personal history of transient ischemic attack (TIA), and cerebral infarction without residual deficits; Z86.79 Personal history of other diseases of the circulatory system; Z87.891 Personal history of nicotine dependence; Z83.3 Family history of diabetes mellitus; Z82.49 Family history of ischemic heart disease and other diseases of the circulatory system; Z68.24 Body mass index [BMI] 24.0-24.9, adult
CPT/HCPCS: 36415; 71045; 71250; 80048; 80053; 80061; 85025; 85610; 85730; 93005; 93306; 94640; J7620